=== PATIENT | male | born 1945 | race Caucasian/White ===

== ENCOUNTER → 2022-10-04 | Outpatient (CLI) | payer MEDICARE ==
[2022-10-04 18:31] LABS: African American GFR (CKD) 96.2 (60.0-200.0); Albumin 3.9 g/dL (3.8-4.9); Albumin/Globulin Ratio 1.66 (1.60-3.17); Anion Gap 13.7 mmol/L (10.00-18.00); BUN/Creat Ratio 29.05 Ratio (12.00-20.00); Blood Urea Nitrogen 26.2 mg/dL (9.0-27.0); Calcium 9.4 mg/dL (8.7-10.3); Carbon Dioxide 24.3 mmol/L (20.0-27.5); Globulin 2.4 g/dL (1.6-3.3); Potassium 4.5 mmol/L (3.5-5.5); Total Bilirubin 0.6 mg/dL (0.30-1.20); Total Protein 6.3 g/dL (6.2-8.2)
== END | disposition home or self-care (01) ==
LOC: LABWHC1 11:55
PROVIDERS: ATTEND Internal Medicine Endocrinology, Diabetes & Metabolism
DX: E11.65 Type 2 diabetes mellitus with hyperglycemia (principal)
CPT/HCPCS: 36415; 80053; 84443

== ENCOUNTER 2022-10-23 10:44 | Emergency (ER) | payer MEDICARE ==
[2022-10-23 10:53] VITALS: TEMP 98.7
[2022-10-23 10:59] LABS: Glucose,Whole Blood 168 mg/dL (70-110)
--- NOTE | 2022-10-23 11:42 | ED ---
General Adult HPI - General Chief complaint: Altered Mental Status Stated complaint: AMS Time Seen by Provider: 10/23/22 10:52 Source: patient, EMS Mode of arrival: EMS Limitations: altered mental status - History of Present Illness Initial comments: Dictation was produced using [employer] dictation software. please excuse any grammatical, word or spelling errors. Chief Complaint: 77-year-old male brought in by EMS for altered mental status and frequent falls History of Present Illness: Patient is 77-year-old male. Patient is a poor historian is brought in from home. The patient lives at home with his . According to EMS who does report patient has been having increased confusion and falls the last 2 weeks. Patient states that he has been falling. Patient does not report why he is falling. Denies any complaints at the bedside. Patient's alert and oriented 4. Coronary EMS patient had a fall about them today. The ROS documented in this emergency department record has been reviewed and confirmed by me. Those systems with pertinent positive or negative responses have been documented in the HPI. All other systems are other negative and/or noncontributory. PHYSICAL EXAM: General Impression: Alert and oriented x3, not in acute distress HEENT: Normocephalic atraumatic, extra-ocular movements intact, pupils equal and reactive to light bilaterally, mucous membranes moist. Cardiovascular: Heart regular rate and rhythm Chest: Able to complete full sentences, no retractions, no tachypnea Abdomen: abdomen soft, non-tender, non-distended, no organomegaly Musculoskeletal: Pulses present and equal in all extremities, no peripheral edema Motor: no focal deficits noted Neurological: CN II-XII grossly intact, no focal motor or sensory deficits noted Skin: Intact with no visualized rashes Psych: Normal affect and mood ED course: 77-year-old male presents emergency department for altered mental status and frequent falls. Vital signs upon arrival are within acceptable limits. Patient alert and oriented 4. No acute distress. Nursing notes and chart review was performed EKG interpreted by me: Ventricular rate 87, sinus rhythm, NM interval 157, QRS 86, QTC 412. No NM prolongation, no QTC prolongation, no ST or T-wave changes noted. Overall, this EKG is unremarkable Computed tomography scan of the head and C-spine is unremarkable. No acute intracranial processes. Chest x-ray and pelvis x-ray is nonacute. Patient monitored in the emergency department for 3 hours and 40 minutes. More history was obtained from was at bedside at 2:30 PM. Patient will like to be discharged. He has been having frequent falls with loss to 3 weeks. Family is agreeable for home health care assistance. Yolande manager of case is at the bedside helping to arrange for home health care as sistance. is concerned that patient's primary care physicians are well outside of town. They would like referrals to our local PCPs. Urinalysis unremarkable. Was pt. sent in by a medical professional or institution (, BILL, DELIVERY ROUTE DRIVER, urgent care, hospital, or care home...) When possible be specific @ -no Did you speak to anyone other than the patient for history (EMS, parent, family, police, friend...)? What history was obtained from this source @ -, EMS Did you review nursing and triage notes (agree or disagree)? Why? @ -I reviewed and agree with nursing and triage notes Were old charts reviewed (outside hosp., previous admission, EMS record, old EKG, old radiological studies, urgent care reports/EKG's, care home records)? Report findings @ -No old charts were reviewed Differential Diagnosis (chest pain, altered mental status, abdominal pain women, abdominal pain men, vaginal bleeding, weakness, fever, dyspnea, syncope, headache, dizziness, GI bleed, back pain, seizure, CVA, palpatations, mental health)? @ -not applicable EKG interpreted by me (3pts min.). @ -see above X-rays interpreted by me (1pt min.). @ -See above CT interpreted by me (1pt min.). @ -See above U/S interpreted by me (1pt. min.). @ -None done What testing was considered but not performed or refused? (CT, X-rays, U/S, labs)? Why? @ -None What meds were considered but not given or refused? Why? @ -None Did you discuss the management of the patient with other professionals (professionals i.e. BILL Dumas, DELIVERY ROUTE DRIVER, lab, RT, psych nurse, social media analyst, base loader, teacher, corporate security officer, manager of case)? Give summary @ -No Was smoking cessation discussed for >3mins.? @ -No Was critical care preformed (if so, how long)? @ -No Were there social determinants of health that impacted care today? How? (Homelessness, low income, unemployed, alcoholism, drug addiction, transportation, low edu. Level, literacy, decrease access to med. care, intermediate, rehab)? @ -No Was there de-escalation of care discussed even if they declined (Discuss DNR or withdrawal of care, Hospice)? DNR status @ -No What co-morbidities impacted this encounter? (DM, HTN, Smoking, COPD, CAD, Cancer, CVA, ARF, Chemo, Hep., AIDS, mental health diagnosis, sleep apnea, morbid obesity)? @ -None Was patient admitted / discharged? Hospital course, mention meds given and route , prescriptions, significant lab abnormalities, going to OR and other pertinent info. @ -See above Undiagnosed new problem with uncertain prognosis? @ -No Drug Therapy requiring intensive monitoring for toxicity (Heparin, Nitro, Insulin, Cardizem)? @ -No Were any procedures done? @ -No Diagnosis/symptom? @ -Frequent falls Acute, or Chronic, or Acute on Chronic? @ -Acute on chronic Uncomplicated (without systemic symptoms) or Complicated (systemic symptoms)? @ -uncomplicated Side effects of treatment? @ -No Exacerbation, Progression, or Severe Exacerbation? @ -No Poses a threat to life or bodily function? How? (Chest pain, USA, MD, pneumonia, PE, COPD, DKA, ARF, appy, cholecystitis, CVA, Diverticulitis, Homicidal, Suicidal, threat to staff... and all critical care pts) @ -Yes - Related Data Allergies Allergy/AdvReac Type Severity Reaction Status Date / Time morphine AdvReac Swelling Verified 10/23/22 10:53 Sulfa (Sulfonamide AdvReac Swelling Verified 10/23/22 10:53 Antibiotics) Review of Systems ROS Statement: Those systems with pertinent positive or pertinent negative responses have been documented in the HPI. ROS Other: All systems not noted in ROS Statement are negative. Past Medical History Additional Past Medical History / Comment(s): unable to obtain r/t AMS History of Any Multi-Drug Resistant Organisms: None Reported Additional Past Surgical History / Comment(s): UTO r/t AMS Past Psychological History: No Psychological Hx Reported Smoking Status: Never smoker Past Alcohol Use History: None Reported Past Drug Use History: None Reported General Exam Limitations: altered mental status Course Vital Signs 10/23/22 10/23/22 10/23/22 10:50 12:00 13:00 Temperature 98.7 F Pulse Rate 88 82 77 Respiratory 20 16 18 Rate Blood Pressure 171/92 157/96 148/92 O2 Sat by Pulse 96 96 95 Oximetry Medical Decision Making - Lab Data Result diagrams: 10/23/22 12:12 10/23/22 12:12 Lab Results 10/23/22 10/23/22 10/23/22 Range/Units 10:58 12:12 12:12 WBC 6.5 (3.8-10.6) k/uL RBC 5.95 H (4.30-5.90) m/uL Hgb 18.2 H (13.0-17.5) gm/dL Hct 52.9 (39.0-53.0) % MCV 88.9 (80.0-100.0) fL MCH 30.6 (25.0-35.0) pg MCHC 34.4 (31.0-37.0) g/dL RDW 13.0 (11.5-15.5) % Plt Count 151 (150-450) k/uL MPV 8.4 Neutrophils % 66 % Lymphocytes % 22 % Monocytes % 6 % Eosinophils % 3 % Basophils % 1 % Neutrophils # 4.3 (1.3-7.7) k/uL Lymphocytes # 1.4 (1.0-4.8) k/uL Monocytes # 0.4 (0-1.0) k/uL Eosinophils # 0.2 (0-0.7) k/uL Basophils # 0.1 (0-0.2) k/uL Sodium 138 (137-145) mmol/L Potassium 4.5 (3.5-5.1) mmol/L Chloride 107 (98-107) mmol/L Carbon Dioxide 24 (22-30) mmol/L Anion Gap 7 mmol/L BUN 27 H (9-20) mg/dL Creatinine 0.77 (0.66-1.25) mg/dL Est GFR (CKD-EPI)AfAm >90 (>60 ml/min/1.73 sqM) Est GFR (CKD-EPI)NonAf 89 (>60 ml/min/1.73 sqM) Glucose 135 H (74-99) mg/dL POC Glucose (mg/dL) 168 H (70-110) mg/dL POC Glu Machine Maintenance Repairer ID Nicole Bernard Calcium 8.7 (8.4-10.2) mg/dL Magnesium 2.3 (1.6-2.3) mg/dL Total Bilirubin 1.0 (0.2-1.3) mg/dL AST 37 (17-59) U/L ALT 29 (4-49) U/L Alkaline Phosphatase 105 (38-126) U/L Creatine Kinase 161 (55-170) U/L Total Protein 6.4 (6.3-8.2) g/dL Albumin 3.9 (3.5-5.0) g/dL Urine Color Urine Appearance (Clear) Urine pH (5.0-8.0) Ur Specific Molino (1.001-1.035) Urine Protein (Negative) Urine Glucose (UA) (Negative) Urine Ketones (Negative) Urine Blood (Negative) Urine Nitrite (Negative) Urine Bilirubin (Negative) Urine Urobilinogen (<2.0) mg/dL Ur Leukocyte Esterase (Negative) Urine WBC (0-5) /hpf Urine Mucus (None) /hpf 10/23/22 Range/Units 14:48 WBC (3.8-10.6) k/uL RBC (4.30-5.90) m/uL Hgb (13.0-17.5) gm/dL Hct (39.0-53.0) % MCV (80.0-100.0) fL MCH (25.0-35.0) pg MCHC (31.0-37.0) g/dL RDW (11.5-15.5) % Plt Count (150-450) k/uL MPV Neutrophils % % Lymphocytes % % Monocytes % % Eosinophils % % Basophils % % Neutrophils # (1.3-7.7) k/uL Lymphocytes # (1.0-4.8) k/uL Monocytes # (0-1.0) k/uL Eosinophils # (0-0.7) k/uL Basophils # (0-0.2) k/uL Sodium (137-145) mmol/L Potassium (3.5-5.1) mmol/L Chloride (98-107) mmol/L Carbon Dioxide (22-30) mmol/L Anion Gap mmol/L BUN (9-20) mg/dL Creatinine (0.66-1.25) mg/dL Est GFR (CKD-EPI)AfAm (>60 ml/min/1.73 sqM) Est GFR (CKD-EPI)NonAf (>60 ml/min/1.73 sqM) Glucose (74-99) mg/dL POC Glucose (mg/dL) (70-110) mg/dL POC Glu Machine Maintenance Repairer ID Calcium (8.4-10.2) mg/dL Magnesium (1.6-2.3) mg/dL Total Bilirubin (0.2-1.3) mg/dL AST (17-59) U/L ALT (4-49) U/L Alkaline Phosphatase (38-126) U/L Creatine Kinase (55-170) U/L Total Protein (6.3-8.2) g/dL Albumin (3.5-5.0) g/dL Urine Color Light Yellow Urine Appearance Clear (Clear) Urine pH 6.0 (5.0-8.0) Ur Specific Molino 1.022 (1.001-1.035) Urine Protein 1+ H (Negative) Urine Glucose (UA) 4+ H (Negative) Urine Ketones Trace H (Negative) Urine Blood Negative (Negative) Urine Nitrite Negative (Negative) Urine Bilirubin Negative (Negative) Urine Urobilinogen <2.0 (<2.0) mg/dL Ur Leukocyte Esterase Negative (Negative) Urine WBC 1 (0-5) /hpf Urine Mucus Rare H (None) /hpf Disposition Clinical Impression: Frequent falls Disposition: HOME SELF-CARE Condition: Good Instructions (If sedation given, give patient instructions): Fall Prevention for Older Adults (ED) Additional Instructions: Patient's primary care doctor is Dr Nataly Stuart and he can be reached at [phone]. Appointment made for 10/25/2022 at 2:45pm. Is patient prescribed a controlled substance at d/c from ED?: No Referrals: [facility], [NON-STAFF] - 1-2 days (Home Care will contact you regarding set up time for appointments. ) Time of Disposition: 15:03
[2022-10-23 12:24] LABS: Basophils # (A) 0.1 k/uL (0-0.2); Basophils % (A) 1 %; Eosinophils # (A) 0.2 k/uL (0-0.7); Eosinophils % (A) 3 %; HCT 52.9 % (39.0-53.0); HGB 18.2 gm/dL (13.0-17.5); Lymphocytes # (A) 1.4 k/uL (1.0-4.8); Lymphocytes % (A) 22 %; MCH 30.6 pg (25.0-35.0); MCHC 34.4 g/dL (31.0-37.0); MCV 88.9 fL (80.0-100.0); Mean Platelet Volume 8.4; Monocytes # (A) 0.4 k/uL (0-1.0); Monocytes % (A) 6 %; Neutrophils # (A) 4.3 k/uL (1.3-7.7); Neutrophils % (A) 66 %; Platelet Count 151 k/uL (150-450); RBC 5.95 m/uL (4.30-5.90); WBC 6.5 k/uL (3.8-10.6)
[2022-10-23 12:32] LABS: ALT 29 U/L (4-49); AST 37 U/L (17-59); African American GFR (CKD) >90 (>60 ml/min/1.73 sqM); Albumin 3.9 g/dL (3.5-5.0); Alkaline Phosphatase 105 U/L (38-126); Anion Gap 7 mmol/L; Blood Urea Nitrogen 27 mg/dL (9-20); Calcium 8.7 mg/dL (8.4-10.2); Carbon Dioxide 24 mmol/L (22-30); Chloride 107 mmol/L (98-107); Creatine Kinase 161 U/L (55-170); Glucose 135 mg/dL (74-99); Magnesium 2.3 mg/dL (1.6-2.3); Non-African American GFR(CKD) 89 (>60 ml/min/1.73 sqM); Sodium 138 mmol/L (137-145); Total Protein 6.4 g/dL (6.3-8.2)
[2022-10-23 12:36] LABS: Potassium 4.5 mmol/L (3.5-5.1)
--- NOTE | 2022-10-23 12:50 | XR ---
EXAMINATION TYPE: XR chest 2V DATE OF EXAM: 10/23/2022 COMPARISON: NONE HISTORY: Fall injury with pain TECHNIQUE: Frontal and lateral views of the chest are obtained. FINDINGS: The osseous structures are demineralized. Degenerative change bilateral glenohumeral joint s is seen. There is cardiomegaly with overlying loop recorder. There are low lung volumes with increa sed interstitial markings bilaterally. No suspicious focal consolidation, pleural effusion, or pneumo thorax seen bilaterally. IMPRESSION: Low lung volumes and cardiomegaly with increased interstitial markings suspected edema. Correlate for CHF exacerbation.
--- NOTE | 2022-10-23 12:52 | CT ---
EXAMINATION TYPE: CT brain cspine wo con CT DLP: 1869.9 mGycm, Automated exposure control for dose reduction was used. DATE OF EXAM: 10/23/2022 12:42 PM COMPARISON: None. CLINICAL INDICATION:Male, 77 years old with history of frequent falls; Fall TECHNIQUE: Brain: Multiple axial CT images of the brain were obtained without IV contrast. Cspine: Axial CT images from the skull base to the inferior aspect of T2 we obtained without intraven ous contrast. Coronal and sagittal reformatted images were also reviewed. FINDINGS: Brain: Extra-axial spaces: No abnormal extra-axial fluid collections. Ventricular system: Dilatation in proportion to cerebral atrophy. Cerebral parenchyma: Cerebral atrophy. No acute intraparenchymal hemorrhage or mass effect. The martin -white junction is well differentiated. Scattered hypoattenuating areas are seen within the white mat ter. Cerebellum: Unremarkable. Mass effect: No evidence of midline shift. Intracranial vasculature: Atherosclerotic calcifications of the intracranial vessels. Soft tissues: Normal. Calvarium/osseous structures: No depressed skull fracture. Paranasal sinuses and mastoid air cells: Clear. Visualized orbits: Orbital contents are intact. Cervical spine: Fracture: None. Osseous structures: Multilevel degenerative disc disease changes with endplate spurring and disc oste ophyte complex's. Vertebral alignment: Within normal limits. Spinal canal/Neural Foramina: No evidence of significant spinal canal narrowing. No evidence for sign ificant neural foraminal stenosis. Neck soft tissues: Prevertebral soft tissues are within normal limits. Other: The airway is patent. The lung apices are clear. IMPRESSION: 1. No acute intracranial process. 2. Nonspecific white matter changes, likely secondary to chronic small vessel ischemic disease. 3. No evidence of cervical spine fracture. 4. Mild multilevel degenerative disc disease.
--- NOTE | 2022-10-23 12:53 | XR ---
EXAMINATION TYPE: XR pelvis AP view DATE OF EXAM: 10/23/2022 CLINICAL HISTORY: Falling injury with pain TECHNIQUE: A single AP view of the pelvis is obtained. COMPARISON: None. FINDINGS: There is no acute displaced fracture evident in the pelvis. The sacroiliac joints show lef t-sided asymmetric narrowing and sclerosis. Hip joint spaces are maintained. Scatter overlying pelvic phleboliths are seen. Vascular calcification bilateral groin region noted. There are suspected trans itional type vertebra lumbosacral junction that is sacralized on the left. There is moderate to sever e disc space narrowing and spurring at L4-L5 level noted. IMPRESSION: There is no acute displaced fracture in the pelvis.
[2022-10-23 14:54] LABS: Appearance,Urine Clear (Clear); Bilirubin,Urine Negative (Negative); Blood,Urine Negative (Negative); Color,Urine Light Yellow; Glucose,Urine (UA) 4+ (Negative); Ketones,Urine Trace (Negative); Leukocyte Esterase,Urine Negative (Negative); Mucus,Urine Rare /hpf; Nitrite,Urine Negative (Negative); Protein,Urine 1+ (Negative); Specific Gravity,Urine 1.022 (1.001-1.035); Urobilinogen,Urine <2.0 mg/dL (<2.0); WBC,Urine 1 /hpf (0-5)
[2022-10-23 16:07] VITALS: BP 156/89; PULSE 78; RESP 22
== END 2022-10-23 16:07 | disposition home or self-care (01) ==
LOC: EC 10:44
DX: R29.6 Repeated falls (principal); I51.7 Cardiomegaly; Z88.2 Allergy status to sulfonamides; Z88.5 Allergy status to narcotic agent
CPT/HCPCS: 36415; 70450; 71046; 72125; 72170; 80053; 81001; 82550; 83735; 85025; 93005; 99285

== ENCOUNTER 2023-01-31 18:55 | Emergency (ER) | payer MEDICARE ==
[2023-01-31 19:14] VITALS: RESP 18; TEMP 97.8
[2023-01-31] MEDS ORDERED: DIPH,PERTUS(ACELL)TETVAC-LF 0.5 ML VIAL IM ONE (19:46)
--- NOTE | 2023-01-31 20:05 | CT ---
EXAMINATION TYPE: CT brain cspine wo con CT DLP: 1702.9 mGycm, Automated exposure control for dose reduction was used. DATE OF EXAM: 01/31/2023 7:33 PM COMPARISON: None. CLINICAL INDICATION:Male, 78 years old with history of fall injury; fall, laceration/contusion over r ight eye TECHNIQUE: Brain: Multiple axial CT images of the brain were obtained without IV contrast. Cspine: Axial CT images from the skull base to the inferior aspect of T2 we obtained without intraven ous contrast. Coronal and sagittal reformatted images were also reviewed. FINDINGS: Brain: Extra-axial spaces: No abnormal extra-axial fluid collections. Ventricular system: Dilatation in proportion to cerebral atrophy. Cerebral parenchyma: Cerebral atrophy. No acute intraparenchymal hemorrhage or mass effect. The martin -white junction is well differentiated. Scattered hypoattenuating areas are seen within the white mat ter. Cerebellum: Unremarkable. Mass effect: No evidence of midline shift. Intracranial vasculature: Atherosclerotic calcifications of the intracranial vessels. Soft tissues: Right periorbital contusion/laceration. Calvarium/osseous structures: No depressed skull fracture. Paranasal sinuses and mastoid air cells: Clear. Visualized orbits: Orbital contents are intact. Cervical spine: Fracture: None. Osseous structures: Multilevel degenerative disc disease changes with endplate spurring and disc oste ophyte complex's. Vertebral alignment: Within normal limits. Spinal canal/Neural Foramina: Disc osteophyte complexes at C4-C5 through C6-C7. With at least mild sp inal canal stenosis. No evidence for significant neural foraminal stenosis. Neck soft tissues: Prevertebral soft tissues are within normal limits. The Other: The airway is patent. The lung apices are clear. IMPRESSION: 1. No acute intracranial process. 2. Right periorbital contusion/laceration. No evidence of fracture. 3. No evidence of cervical spine fracture. 4. Mild multilevel degenerative disc disease.
[2023-01-31] MEDS ORDERED: BACITRACIN OINT 1 EACH PACKET TOPICAL ONE (20:32)
--- NOTE | 2023-01-31 20:32 | ED ---
Fall HPI - General Chief Complaint: Fall Stated Complaint: Fall/head injury/blood thinners Time Seen by Provider: 01/31/23 19:14 Source: patient, EMS Mode of arrival: EMS - History of Present Illness Initial Comments: This patient is a 78-year-old man who presents to have evaluation for ground level fall. The patient had gone to take her garbage out states that he tripped and fell forward landing on the right brow. No loss consciousness. Denies other injuries. Patient unsure when his last tetanus shot given. MD Complaint: fall -: minutes(s) Fall From: standing When Fall Occurred: just prior to arrival Fall Witnessed: no Place Fall Occurred: home Loss of Consciousness: none Prolonged Down Time?: no Symptoms Prior to Fall: none Location: head Severity: mild Context: tripped/slipped Associated Symptoms: headache - Related Data Allergies Allergy/AdvReac Type Severity Reaction Status Date / Time morphine AdvReac Swelling Verified 10/23/22 10:53 Sulfa (Sulfonamide AdvReac Swelling Verified 10/23/22 10:53 Antibiotics) Review of Systems ROS Statement: Those systems with pertinent positive or pertinent negative responses have been documented in the HPI. ROS Other: All systems not noted in ROS Statement are negative. Constitutional: Denies: fever, weakness Eyes: Denies: eye pain, vision change ENT: Denies: epistaxis Respiratory: Denies: cough, dyspnea Cardiovascular: Denies: chest pain, syncope Gastrointestinal: Denies: abdominal pain, vomiting, diarrhea Genitourinary: Denies: dysuria, hematuria Musculoskeletal: Denies: back pain Skin: Denies: rash Neurological: Denies: headache, weakness, numbness, confusion Past Medical History Past Medical History: Hypertension Additional Past Medical History / Comment(s): unable to obtain r/t AMS History of Any Multi-Drug Resistant Organisms: None Reported Additional Past Surgical History / Comment(s): UTO r/t AMS Past Psychological History: No Psychological Hx Reported Smoking Status: Never smoker Past Alcohol Use History: None Reported Past Drug Use History: None Reported General Exam Limitations: no limitations General appearance: alert, in no apparent distress Head exam: Present: atraumatic, normocephalic Eye exam: Present: PERRL, EOMI, periorbital swelling, other (There is abrasion and swelling to the right brow.). Absent: scleral icterus, conjunctival injection, periorbital tenderness ENT exam: Present: normal oropharynx Neck exam: Present: full ROM. Absent: tenderness Respiratory exam: Present: normal lung sounds bilaterally. Absent: respiratory distress, wheezes, rales, rhonchi, stridor, chest wall tenderness Cardiovascular Exam: Present: regular rate, normal rhythm, normal heart sounds. Absent: systolic murmur, diastolic murmur, rubs, gallop GI/Abdominal exam: Present: soft. Absent: distended, tenderness, guarding, rebound, rigid, mass Extremities exam: Present: normal inspection, normal capillary refill. Absent: pedal edema, calf tenderness Back exam: Present: normal inspection. Absent: CVA tenderness (R), CVA tenderness (L), vertebral tenderness Neurological exam: Present: alert, oriented X3, CN II-XII intact Skin exam: Present: warm, dry, normal color, abrasion (Right brow). Absent: rash Course Vital Signs 01/31/23 01/31/23 19:11 20:41 Temperature 97.8 F Pulse Rate 87 62 Respiratory 18 18 Rate Blood Pressure 138/116 147/114 O2 Sat by Pulse 96 94 L Oximetry Medical Decision Making - Medical Decision Making This patient is 78-year-old man here to have evaluation after ground level fall striking his right brow. The patient did have CT of the brain which I interpreted as being negative for bony trauma or acute intracranial hemorrhage. The patient is given tetanus booster. We discussed appropriate further care and follow-up as well as return parameters. Was pt. sent in by a medical professional or institution (, PA, OFFAL TRIMMER, urgent care, hospital, or care home...) When possible be specific @ -[No] Did you speak to anyone other than the patient for history (EMS, parent, family, police, friend...)? What history was obtained from this source @ -[No] Did you review nursing and triage notes (agree or disagree)? Why? @ -[I reviewed and agree with nursing and triage notes] Were old charts reviewed (outside hosp., previous admission, EMS record, old EKG, old radiological studies, urgent care reports/EKG's, care home records)? Report findings @ -[No old charts were reviewed] Differential Diagnosis (chest pain, altered mental status, abdominal pain women, abdominal pain men, vaginal bleeding, weakness, fever, dyspnea, syncope, headache, dizziness, GI bleed, back pain, seizure, CVA, palpatations, mental health, musculoskeletal)? @ -[Differential diagnosis for this patient's acute head injury includes contusion, abrasion, laceration, intracranial hemorrhage, skull fracture, c ervical spine injury, amongst other conditions EKG interpreted by me (3pts min.). @ -[ X-rays interpreted by me (1pt min.). @ -[None done] CT interpreted by me (1pt min.). @ -[As above U/S interpreted by me (1pt. min.). @ -[None done] What testing was considered but not performed or refused? (CT, X-rays, U/S, labs)? Why? @ -[None] What meds were considered but not given or refused? Why? @ -[None] Did you discuss the management of the patient with other professionals (professionals i.e. , PA, OFFAL TRIMMER, lab, RT, psych nurse, social science professor, grooving machine operator, teacher, guest services officer, immigration case worker)? Give summary @ -[No] Was smoking cessation discussed for >3mins.? @ -[No] Was critical care preformed (if so, how long)? @ -[No] Were there social determinants of health that impacted care today? How? (Homelessness, low income, unemployed, alcoholism, drug addiction, transportation, low edu. Level, literacy, decrease access to med. care, fpc, rehab)? @ -[No] Was there de-escalation of care discussed even if they declined (Discuss DNR or withdrawal of care, Hospice)? DNR status @ -[No] What co-morbidities impacted this encounter? (DM, HTN, Smoking, COPD, CAD, Cancer, CVA, ARF, Chemo, Hep., AIDS, mental health diagnosis, sleep apnea, morbid obesity)? @ -[None] Was patient admitted / discharged? Hospital course, mention meds given and route, prescriptions, significant lab abnormalities, going to OR and other pertinent info. @ -[Discharged Undiagnosed new problem with uncertain prognosis? @ -[No] Drug Therapy requiring intensive monitoring for toxicity (Heparin, Nitro, Insulin, Cardizem)? @ -[No] Were any procedures done? @ -[No] Diagnosis/symptom? @ -[Acute closed head injury Acute forehead abrasion or Chronic, or Acute on Chronic? @ -[default] Uncomplicated (without systemic symptoms) or Complicated (systemic symptoms)? @ -[uncomplicated Side effects of treatment? @ -[No] Exacerbation, Progression, or Severe Exacerbation? @ -[No] Poses a threat to life or bodily function? How? (Chest pain, USA, [place], pneumonia, PE, COPD, DKA, ARF, appy, cholecystitis, CVA, Diverticulitis, Homicidal, Suicidal, threat to staff... and all critical care pts) @ -[No] Disposition Clinical Impression: Fall, Head injury Disposition: HOME SELF-CARE Condition: Good Instructions (If sedation given, give patient instructions): Fall Prevention for Older Adults (ED), Head Injury (ED) Is patient prescribed a controlled substance at d/c from ED?: No Referrals: Hung Garnett DO [Primary Care Provider] - 1-2 days
[2023-01-31 20:42] VITALS: BP 147/114; PULSE 62
== END 2023-01-31 21:16 | disposition home or self-care (01) ==
LOC: EC 18:55
DX: S09.93XA Unspecified injury of face, initial encounter (principal); I10 Essential (primary) hypertension; Z88.2 Allergy status to sulfonamides; Z88.5 Allergy status to narcotic agent; Z23 Encounter for immunization; W01.0XXA Fall on same level from slipping, tripping and stumbling without subsequent striking against object, initial encounter; Y92.009 Unspecified place in unspecified non-institutional (private) residence as the place of occurrence of the external cause
CPT/HCPCS: 70450; 72125; 90471; 90715; 99284

== ENCOUNTER → 2023-03-09 | Outpatient (CLI) | payer MEDICARE ==
--- NOTE | 2023-03-09 13:06 | MR ---
EXAMINATION TYPE: MR brain wo con DATE OF EXAM: 03/09/2023 COMPARISON: CT brain January 31, 2023 and older study October 23, 2022 HISTORY: Right leg weakness, falls. TECHNIQUE: Multiplanar, multisequence imaging of the brain and brainstem is performed without IV cont rast. FINDINGS: Diffusion weighted images demonstrate no evidence of a recent infarct or other diffusion abnormality. There is mild to moderate ventricular and sulcal prominence. There are scattered foci of T2 hyperinte nsity seen throughout the white matter bilaterally. Approximately 80 scattered lesions are seen. Lesi ons are nonspecific in appearance and distribution. Midline structures demonstrate normal morphology. The craniocervical junction appears within normal limits. Normal vascular flow voids are present. The visualized sinuses are clear and the globes are i ntact. IMPRESSION: There is [id number] diffuse cerebral atrophy and advanced nonspecific white matter changes. Findings favor a product of chronic small vessel ischemic change in patient of this age. Oth er etiologies not excluded.
== END | disposition home or self-care (01) ==
LOC: RADMRIMAIN 11:36
PROVIDERS: ATTEND Psychiatry & Neurology Neurology
DX: G31.9 Degenerative disease of nervous system, unspecified (principal); I67.9 Cerebrovascular disease, unspecified; R90.82 White matter disease, unspecified
CPT/HCPCS: 70551

== ENCOUNTER 2023-07-04 07:28 | Day surgery (SDC) | payer MEDICARE ==
--- NOTE | 2023-07-02 14:50 | P.HPOR ---
History of Present Illness H&P Date: 07/02/23 Subjective: This is a 78 year old male that presents today for follow up evaluation regarding a several year history of progressively worsening bilateral hand numbness and tingling with associated weakness. 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 He states the left hand is more symptomatic. He denies any injury or inciting event. He notes symptoms that are worse at nighttime and often wake him from sleep at night. He has tried night bracing for the last 6 weeks but still notes constant numbness and tingling although he has mild improvement with bracing and is able to make a fist. Physical Examination: LUE: AIN/PIN/Radial/Ulnar/Median motor intact. Radial/Ulnar SILT. 2+/4 Radial/Ulnar pulses palpated. 5/5 APB, 5/5 FDI. Negative Finkelsteins, negative CMC grind, negative Durkan's compression. Constant numbness in the median nerve distribution. RUE: AIN/PIN/Radial/Ulnar/Median motor intact. Radial/Ulnar SILT. 2+/4 Radial/Ulnar pulses palpated. 5/5 APB, 5/5 FDI. Negative Finkelsteins, negative CMC grind, negative Durkan's compression. Constant numbness in the median nerve distribution. 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 Bilateral ulnar neuropathies, moderate severity on the right and mild to moderate on the left, localizing to the elbows. Impression: 1.)B/L Carpal tunnel syndrome 2.) B/L Cubital tunnel syndrome Plan: Diagnosis and treatment options were discussed with the patient. We discussed findings of severe nerve compression in the wrist on both extremities. We discussed due to his multiple medical comorbidities an open carpal tunnel release under local anesthetic could be considered if his A1C is in acceptable range. He was able to show me his CGM data and his 90 day BG average is 158 which is acceptable. Pending PCP clearance he is schedule for a left open carpal tunnel release under straight local anesthetic.Risks and benefits of surgery including bleeding, infection, damage to surrounding tissue, need for further surgery, residual numbness due to severe EMG nerve findings were discussed and the patient wished to go forward with surgery.The patient was agreeable with this plan. He is scheduled for a left open carpal tunnel release under local anesthetic. CC: Dalton Strauss DO Orthopedic Hand/Upper Extremity Surgeon Past Medical History Past Medical History: Diabetes Mellitus, GERD/Reflux, Hyperlipidemia, Hypertension Additional Past Medical History / Comment(s): IDDM. EARLY ONSET DEMENTIA. History of Any Multi-Drug Resistant Organisms: None Reported Past Surgical History: Heart Catheterization With Stent, Orthopedic Surgery Additional Past Surgical History / Comment(s): UTO r/t AMS. KNEE REPLACEMENT ? Past Anesthesia/Blood Transfusion Reactions: No Reported Reaction Date of Last Stent Placement:: UNKNOWN Past Psychological History: No Psychological Hx Reported Smoking Status: Former smoker, Never smoker Past Alcohol Use History: None Reported Additional Past Alcohol Use History / Comment(s): QUIT SMOKING IN THE . Past Drug Use History: None Reported - Past Family History Mother Family Medical History: Unable to Obtain Medications and Allergies Home Medications Medication Instructions Recorded Confirmed Type Aspirin [Adult Low Dose Aspirin EC] 81 mg PO DAILY 06/29/23 06/29/23 History Atorvastatin Calcium [Lipitor] 40 mg PO HS 06/29/23 06/29/23 History Cholecalciferol [Vitamin D3 (25 50 mcg PO DAILY 06/29/23 06/29/23 History Mcg = 1000 Iu)] Donepezil [Aricept] 10 mg PO QAM 06/29/23 06/29/23 History Dutasteride/Tamsulosin HCl [Yani 1 tab PO HS 06/29/23 06/29/23 History 0.5-0.4 mg Capsule] Empagliflozin [Jardiance] 25 mg PO QAM 06/29/23 06/29/23 History Ginkgo Biloba [place] Extract [Ginkgo 60 mg PO BID 06/29/23 06/29/23 History Biloba] INSULIN ASPART (NovoLOG) [NovoLOG 3 - 15 units SQ AC-TID 06/29/23 06/29/23 History (formulary)] Insulin Glargine,Hum.rec.anlog 40 - 50 unit SQ HS 06/29/23 06/29/23 History [Lantus Solostar Pen] Loratadine [Claritin] 10 mg PO DAILY PRN 06/29/23 06/29/23 History Metoprolol Succinate (ER) [Toprol 25 mg PO HS 06/29/23 06/29/23 History XL] Pantoprazole [Protonix] 40 mg PO DAILY PRN 06/29/23 06/29/23 History Pantoprazole [Protonix] 40 mg PO HS PRN 06/29/23 06/29/23 History Vit C/E/Zn/Coppr/Lutein/Zeaxan 2 tab PO DAILY 06/29/23 06/29/23 History [Preservision Areds 2 Softgel] Warfarin [Coumadin] 5 mg PO HS 06/29/23 06/29/23 History ramipriL 10 mg PO BID 06/29/23 06/29/23 History Allergies Allergy/AdvReac Type Severity Reaction Status Date / Time morphine AdvReac Swelling Verified 06/29/23 15:41 Sulfa (Sulfonamide AdvReac Swelling Verified 06/29/23 15:41 Antibiotics) Physical Examination Osteopathic Statement: *. No significant issues noted on an osteopathic structural exam other than those noted in the History and Physical/Consult.
[~2023-07-04 07:28] MED LIST: LACTATED RINGERS 1,000 ML IV SCH; LIDOCAINE 1% (10MG/ML) FOR IV START INTRADERMA PRN; Pre Op ABX Message 1 EACH MISC MISCELLANE ONE; fentaNYL (PF) 50 MCG/ML 2 ML AMP IV PRN
[2023-07-04 08:29] VITALS: RESP 16; TEMP 98.1
[2023-07-04 08:30] LABS: Glucose,Whole Blood 117 mg/dL (70-110)
[2023-07-04] MEDS ORDERED: BUPIVACAINE (PF) 0.5% 30 ML VIAL SQ ONE ×3 (08:56→09:00)
[2023-07-04] MEDS ORDERED: LIDOCAINE 2% INJ 20 MG/ML SQ ONE ×3 (08:56→09:00)
[2023-07-04] MEDS ORDERED: MIDAZOLAM 2 MG/2 ML VIAL ONE (08:57)
[2023-07-04] MEDS ORDERED: PROPOFOL 10 MG/ML 20 ML VIAL IV ONE (08:57)
[2023-07-04] MEDS ORDERED: fentaNYL (PF) 50 MCG/ML 2 ML AMP ONE (08:57)
--- NOTE | 2023-07-04 09:19 | P.OP ---
Date of Procedure: 07/04/23 Preoperative Diagnosis: Left carpal tunnel syndrome Postoperative Diagnosis: Left carpal tunnel syndrome Procedure(s) Performed: Left open carpal tunnel release Anesthesia: MAC Surgeon: Jaquan Fleming Celebrity Manager #1: Zheng Santacruz Estimated Blood Loss (ml): 0 Pathology: none sent Condition: stable Disposition: PACU Description of Procedure: This is a 78 year old male who presents today for a left open carpal tunnel release after having failed conservative treatment in the past. Risks and benefits of surgery were discussed with the patient including bleeding, damage to surrounding tissue, infection, need for further surgery as well as risks of anesthesia including pulmonary embolism and even and the patient wished to proceed with surgical intervention. The patients was seen in the pre-operative area by myself. Consent and H&P were completed and updated. The correct extremity was marked in the pre-operative area by myself and all other questions were answered. Operative Narrative: The patient was brought to the operating room by the department of anesthesia. They remained on the portable stretcher and a rolling hand table was brought to the side of the operative extremity. Pre-operative time out was performed indicating the correct patient, procedure and laterality. All in the room agreed. The patient was then drifted off to sleep by the department of anesthesia. MAC anesthesia was utilized and a 50:50 mixture of 1% Lidocaine and 0.5% bupivacaine was injected into the subcutaneous tissues of the palmar skin, 14 ccs total. A nonsterile tourniquet was then applied to the operative extremity and the left upper extremity was then prepped and draped in normal sterile fashion. The operative extremity was the exsanguinated with an esmarch bandage and the tourniquet was inflated to 250mmHg. 15 blade scalpel was utilized to make a longitudinal incision on the palmar skin in line with the radial boarder of the ring finger to a point distally at the intersection of Kaplans cardinal line. Heiss retractor was utilized to spread subcutaneous tissue and scalpel was used to cut through the superficial palmar fascia to reveal the transverse carpal ligament. The transverse carpal ligament was then sharply incised in line with the incision and tenotomy scissors were used to spread distally and the distal portion of the transverse carpal ligament was released using tenotomy scissors from distal to proximal under direct visualization. The median nerve was directly visualized and was intact. Proximal fascia of the distal forearm was also released under direct visualization taking care to preserve the palmar cutaneous branch of the median nerve. The wound was then closed with 4-0 nylon suture in a horizontal mattress fashion. Sterile dressing was applied consisting of adaptic, 4x4s, webril, and an yaneth bandage. Tourniquet was let down and the hand immediately was well perfused. The patient was then woken by the department of anesthesia and transferred to PACU in stable condition. Zheng KHAN was present to assist in major portions of the procedure. Jaquan Fleming D.O. Orthopedic Hand/Upper Extremity Surgeon
[2023-07-04 09:45] VITALS: BP 121/72; PULSE 73
== END 2023-07-04 10:00 | disposition home or self-care (01) ==
LOC: OR 07:28
PROVIDERS: ATTEND Orthopaedic Surgery Hand Surgery
DX: G56.02 Carpal tunnel syndrome, left upper limb (principal); I10 Essential (primary) hypertension; E78.5 Hyperlipidemia, unspecified; K21.9 Gastro-esophageal reflux disease without esophagitis; E11.9 Type 2 diabetes mellitus without complications; Z79.4 Long term (current) use of insulin; Z98.890 Other specified postprocedural states; Z87.891 Personal history of nicotine dependence; Z79.82 Long term (current) use of aspirin; Z79.84 Long term (current) use of oral hypoglycemic drugs; Z88.5 Allergy status to narcotic agent; Z88.2 Allergy status to sulfonamides
CPT/HCPCS: 64721; J2001; J2250; J3010; J2704; J0665

== ENCOUNTER 2023-08-15 05:38 | Day surgery (SDC) | payer MEDICARE ==
--- NOTE | 2023-08-14 08:59 | P.HPOR ---
History of Present Illness H&P Date: 08/14/23 Subjective: This is a 78 year old male that presents today for follow up evaluation regarding a several year history of progressively worsening bilateral hand numbness and tingling with associated weakness. He underwent a right open carpal tunnel with good results within the last month. He denies any injury or inciting event. He notes symptoms that are worse at nighttime and often wake him from sleep at night. He has tried night bracing for the last 6 weeks but still notes constant numbness and tingling although he has mild improvement with bracing and is able to make a fist. Physical Examination: RUE: AIN/PIN/Radial/Ulnar/Median motor intact. Radial/Ulnar SILT. 2+/4 Radial/Ulnar pulses palpated. 5/5 APB, 5/5 FDI. Negative Finkelsteins, negative CMC grind, negative Durkan's compression. Constant numbness in the median nerve distribution. 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 Bilateral ulnar neuropathies, moderate severity on the right and mild to moderate on the left, localizing to the elbows. Impression: 1.)Right Carpal tunnel syndrome 2.) B/L Cubital tunnel syndrome Plan: Diagnosis and treatment options were discussed with the patient. He is healed from his left open carpal tunnel procedure and wishes to go forward with a right open carpal tunnel release. He is schedule for a right open carpal tunnel release.Risks and benefits of surgery including bleeding, infection, damage to surrounding tissue, need for further surgery, residual numbness due to severe EMG nerve findings were discussed and the patient wished to go forward with surgery.The patient was agreeable with this plan. CC: Dalton Strauss DO Orthopedic Hand/Upper Extremity Surgeon Past Medical History Past Medical History: Diabetes Mellitus, GERD/Reflux, Hyperlipidemia, Hypertension Additional Past Medical History / Comment(s): IDDM. EARLY ONSET DEMENTIA. History of Any Multi-Drug Resistant Organisms: None Reported Past Surgical History: Heart Catheterization With Stent, Orthopedic Surgery Additional Past Surgical History / Comment(s): UTO r/t AMS. KNEE REPLACEMENT ? carpal tunnel 06/2023 Past Anesthesia/Blood Transfusion Reactions: No Reported Reaction Date of Last Stent Placement:: UNKNOWN Smoking Status: Former smoker - Past Family History Mother Family Medical History: Unable to Obtain Medications and Allergies Home Medications Medication Instructions Recorded Confirmed Type Aspirin [Adult Low Dose Aspirin EC] 81 mg PO DAILY 06/29/23 08/13/23 History Atorvastatin Calcium [Lipitor] 40 mg PO HS 06/29/23 08/13/23 History Cholecalciferol [Vitamin D3 (25 50 mcg PO DAILY 06/29/23 08/13/23 History Mcg = 1000 Iu)] Donepezil [Aricept] 10 mg PO QAM 06/29/23 08/13/23 History Dutasteride/Tamsulosin HCl [Yani 1 tab PO HS 06/29/23 08/13/23 History 0.5-0.4 mg Capsule] Empagliflozin [Jardiance] 25 mg PO QAM 06/29/23 08/13/23 History Ginkgo Biloba Learned Extract [Ginkgo 60 mg PO BID 06/29/23 08/13/23 History Biloba] INSULIN ASPART (NovoLOG) [NovoLOG 3 - 15 units SQ AC-TID 06/29/23 08/13/23 History (formulary)] Insulin Glargine,Hum.rec.anlog 35 unit SQ HS 06/29/23 08/13/23 History [Lantus Solostar Pen] Metoprolol Succinate (ER) [Toprol 25 mg PO HS 06/29/23 08/13/23 History XL] Pantoprazole [Protonix] 40 mg PO DAILY PRN 06/29/23 08/13/23 History Vit C/E/Zn/Coppr/Lutein/Zeaxan 2 tab PO DAILY 06/29/23 08/13/23 History [Preservision Areds 2 Softgel] Warfarin [Coumadin] 5 mg PO HS 06/29/23 08/13/23 History ramipriL 10 mg PO BID 06/29/23 08/13/23 History Allergies Allergy/AdvReac Type Severity Reaction Status Date / Time morphine AdvReac Swelling Verified 08/13/23 12:16 Sulfa (Sulfonamide AdvReac Swelling Verified 08/13/23 12:16 Antibiotics) Physical Examination Osteopathic Statement: *. No significant issues noted on an osteopathic structural exam other than those noted in the History and Physical/Consult.
[2023-08-15] MEDS ORDERED: ONDANSETRON 4 MG/2 ML VIAL IVP ONE (06:03)
[2023-08-15] MEDS ORDERED: LIDOCAINE 1% (10MG/ML) FOR IV START INTRADERMA PRN (06:03)
[2023-08-15] MEDS ORDERED: LACTATED RINGERS 1,000 ML IV SCH (06:03)
[2023-08-15 06:41] LABS: Glucose,Whole Blood 117 mg/dL (70-110)
[2023-08-15] MEDS ORDERED: PROPOFOL 10 MG/ML 20 ML VIAL IV ONE (06:50)
[2023-08-15] MEDS ORDERED: fentaNYL (PF) 50 MCG/ML 2 ML AMP ONE (06:50)
[2023-08-15] MEDS ORDERED: LIDOCAINE 1% INJ 10MG/ML (20 ML MDV) ONE (06:50)
[2023-08-15] MEDS ORDERED: BUPIVACAINE (PF) 0.5% 30 ML VIAL SQ ONE (06:59)
[2023-08-15] MEDS ORDERED: LIDOCAINE 2% INJ 20 MG/ML SQ ONE (06:59)
[2023-08-15 07:00] VITALS: TEMP 97
[2023-08-15] MEDS ORDERED: fentaNYL (PF) 50 MCG/ML 2 ML AMP IV PRN (07:00)
[2023-08-15 07:18] LABS: INR 1.3 (<1.2); Prothrombin Time 13.3 sec (10.0-12.5)
--- NOTE | 2023-08-15 07:18 | P.OP ---
Date of Procedure: 08/15/23 Preoperative Diagnosis: Right carpal tunnel syndrome Postoperative Diagnosis: Right carpal tunnel syndrome Procedure(s) Performed: Right open carpal tunnel release Anesthesia: MAC Surgeon: Jaquan Fleming Estimated Blood Loss (ml): 0 Pathology: none sent Condition: stable Disposition: PACU Description of Procedure: This is a 78 year old male who presents today for a right open carpal tunnel release after having failed conservative treatment in the past. Risks and benefits of surgery were discussed with the patient including bleeding, damage to surrounding tissue, infection, need for further surgery as well as risks of anesthesia including pulmonary embolism and even and the patient wished to proceed with surgical intervention. The patients was seen in the pre-operative area by myself. Consent and H&P were completed and updated. The correct extremity was marked in the pre-operative area by myself and all other questions were answered. Operative Narrative: The patient was brought to the operating room by the department of anesthesia. They remained on the portable stretcher and a rolling hand table was brought to the side of the operative extremity. Pre-operative time out was performed indicating the correct patient, procedure and laterality. All in the room agreed. The patient was then drifted off to sleep by the department of anesthesia. MAC anesthesia was utilized and a 50:50 mixture of 1% Lidocaine and 0.5% bupivacaine was injected into the subcutaneous tissues of the palmar skin, 8ccs total. A nonsterile tourniquet was then applied to the operative extremity and the right upper extremity was then prepped and draped in normal sterile fashion. The operative extremity was the exsanguinated with an esmarch bandage and the tourniquet was inflated to 250mmHg. 15 blade scalpel was utilized to make a longitudinal incision on the palmar skin in line with the radial boarder of the ring finger to a point distally at the intersection of Kaplans cardinal line. Heiss retractor was utilized to spread subcutaneous tissue and scalpel was used to cut through the superficial palmar fascia to reveal the transverse carpal ligament. The transverse carpal ligament was then sharply incised in line with the incision and tenotomy scissors were used to spread distally and the distal portion of the transverse carpal ligament was released using tenotomy scissors from distal to proximal under direct visualization. The median nerve was directly visualized and was intact. Proximal fascia of the distal forearm was also released under direct visualization taking care to preserve the palmar cutaneous branch of the median nerve. The wound was then closed with 4-0 nylon suture in a horizontal mattress fashion. Sterile dressing was applied consisting of adaptic, 4x4s, webril, and an yaneth bandage. Tourniquet was let down and the hand immediately was well perfused. The patient was then woken by the department of anesthesia and transferred to PACU in stable condition. Jaquan Fleming D.O. Orthopedic Hand/Upper Extremity Surgeon
[2023-08-15 07:28] VITALS: PULSE 74
[2023-08-15 07:30] LABS: Glucose,Whole Blood 120 mg/dL (70-110)
[2023-08-15 07:55] VITALS: BP 125/80; RESP 20
== END 2023-08-15 08:00 | disposition home or self-care (01) ==
LOC: OR 05:38
PROVIDERS: ATTEND Orthopaedic Surgery Hand Surgery
DX: G56.01 Carpal tunnel syndrome, right upper limb (principal); G56.23 Lesion of ulnar nerve, bilateral upper limbs; I25.10 Atherosclerotic heart disease of native coronary artery without angina pectoris; I10 Essential (primary) hypertension; E78.5 Hyperlipidemia, unspecified; E11.9 Type 2 diabetes mellitus without complications; K21.9 Gastro-esophageal reflux disease without esophagitis; Z88.2 Allergy status to sulfonamides; Z88.5 Allergy status to narcotic agent; Z79.82 Long term (current) use of aspirin; Z79.4 Long term (current) use of insulin; Z79.1 Long term (current) use of non-steroidal anti-inflammatories (NSAID); Z79.891 Long term (current) use of opiate analgesic; Z79.84 Long term (current) use of oral hypoglycemic drugs; Z79.899 Other long term (current) drug therapy; Z95.5 Presence of coronary angioplasty implant and graft
CPT/HCPCS: 64721; 85610; J2001 ×2; J0690; J2405; J3010; J2704; J0665

== ENCOUNTER → 2024-01-18 | Outpatient (CLI) | payer MEDICARE ==
--- NOTE | 2024-01-18 16:57 | US ---
EXAMINATION TYPE: US abdomen limited DATE OF EXAM: 01/18/2024 COMPARISON: NONE CLINICAL INDICATION: Male, 78 years old with history of K43.9 VENTRAL HERNIA WITHOUT OBSTRUCTION OR G ANGRE; palpable area sometimes painful x a few years Assess for hernia at location of: midline mid-abdomen The patients area of concern reveals a 3.8x0.4x3.4cm fat containing hernia arising from the ventral w all with a 0.8cm neck which is mostly compressible. Are best seen when patient was standing Several other small fat containing hernias in the area also noted IMPRESSION: Fat-containing hernias as noted. Real-time scanning was performed by the brush machine setter utilizing Valsalva and additional dynamic maneuve rs to assess for hernia.
== END | disposition home or self-care (01) ==
LOC: RADUSWWP 16:08
PROVIDERS: ATTEND Family Medicine
DX: K43.9 Ventral hernia without obstruction or gangrene (principal)
CPT/HCPCS: 76705

== ENCOUNTER 2024-10-10 10:34 | Emergency (ER) | payer MEDICARE ==
--- NOTE | 2024-10-10 11:28 | ED ---
General Adult HPI - General Chief complaint: Dizziness Stated complaint: Weakness Time Seen by Provider: 10/10/24 11:26 Source: patient, EMS, RN notes reviewed Mode of arrival: EMS Limitations: no limitations - History of Present Illness Initial comments: Patient is 79-year-old male presented the ER for evaluation of weakness. Patient states yesterday he felt extremely weak. Patient states he did fall yesterday. He does take Coumadin but denies any head injury or loss of consciousness. He states he was able to get up by himself without difficulty. Patient reports a recent cough and congestion. He denies any chest pain, shortness of breath/wheezing, abdominal pain, dizziness, lightheadedness, nausea, vomiting, constipation/diarrhea or urinary complaints. Patient does report his recently had a cough and congestion as well. Patient has not taken anything for symptoms at this time. No other complaints. - Related Data Home Medications Medication Instructions Recorded Confirmed Aspirin [Adult Low Dose Aspirin EC] 81 mg PO HS 06/29/23 10/10/24 Atorvastatin Calcium [Lipitor] 40 mg PO HS 06/29/23 10/10/24 Cholecalciferol [Vitamin D3 (25 50 mcg PO HS 06/29/23 10/10/24 Mcg = 1000 Iu)] Donepezil [Aricept] 20 mg PO DAILY 06/29/23 10/10/24 Dutasteride/Tamsulosin HCl [Yani 1 tab PO DAILY 06/29/23 10/10/24 0.5-0.4 mg Capsule] Empagliflozin [Jardiance] 25 mg PO DAILY 06/29/23 10/10/24 Ginkgo Biloba [place] Extract [Ginkgo 60 mg PO BID 06/29/23 10/10/24 Biloba] INSULIN ASPART (NovoLOG) [NovoLOG See Protocol SQ AC-TID 06/29/23 10/10/24 (formulary)] Insulin Glargine,Hum.rec.anlog 35 - 39 unit SQ HS 06/29/23 10/10/24 [Lantus Solostar Pen] Metoprolol Succinate (ER) [Toprol 25 mg PO HS 06/29/23 10/10/24 XL] Pantoprazole [Protonix] 40 mg PO DAILY 06/29/23 10/10/24 Vit C/E/Zn/Coppr/Lutein/Zeaxan 1 tab PO BID 06/29/23 10/10/24 [Preservision Areds 2 Softgel] Warfarin [Coumadin] 5 mg PO SUMOTUWETHSA@209906/29/23 10/10/24 ramipriL 10 mg PO BID 06/29/23 10/10/24 Warfarin [Coumadin] 7.5 mg PO FR@209910/10/24 10/10/24 Allergies Allergy/AdvReac Type Severity Reaction Status Date / Time morphine AdvReac Swelling Verified 10/10/24 12:40 Sulfa (Sulfonamide AdvReac Swelling Verified 10/10/24 12:40 Antibiotics) Review of Systems ROS Statement: Those systems with pertinent positive or pertinent negative responses have been documented in the HPI. ROS Other: All systems not noted in ROS Statement are negative. Past Medical History Past Medical History: Diabetes Mellitus, GERD/Reflux, Hyperlipidemia, Hypertension Additional Past Medical History / Comment(s): IDDM. EARLY ONSET DEMENTIA. History of Any Multi-Drug Resistant Organisms: None Reported Past Surgical History: Heart Catheterization With Stent, Orthopedic Surgery Additional Past Surgical History / Comment(s): UTO r/t AMS. KNEE REPLACEMENT ? carpal tunnel 06/2023 Past Anesthesia/Blood Transfusion Reactions: No Reported Reaction Date of Last Stent Placement:: UNKNOWN Past Psychological History: No Psychological Hx Reported Smoking Status: Former smoker - Past Family History Mother Family Medical History: Unable to Obtain General Exam Limitations: no limitations General appearance: alert, in no apparent distress Head exam: Present: atraumatic, normocephalic, normal inspection Eye exam: Present: normal appearance, PERRL, EOMI. Absent: scleral icterus, conjunctival injection, periorbital swelling Pupils: Present: normal accommodation ENT exam: Present: normal exam, normal oropharynx, mucous membranes moist Respiratory exam: Present: normal lung sounds bilaterally. Absent: respiratory distress, wheezes, rales, rhonchi, stridor Cardiovascular Exam: Present: regular rate, normal rhythm, normal heart sounds. Absent: systolic murmur, diastolic murmur, rubs, gallop, clicks GI/Abdominal exam: Present: soft, normal bowel sounds. Absent: distended, tenderness, guarding, rebound, rigid Extremities exam: Present: normal inspection, full ROM, normal capillary refill. Absent: tenderness, pedal edema, joint swelling, calf tenderness Neurological exam: Present: alert, oriented X3, CN II-XII intact Psychiatric exam: Present: normal affect, normal mood Course Vital Signs 10/10/24 10/10/24 10/10/24 10:47 12:30 12:49 Temperature 100.0 F H 98.9 F 98 F Pulse Rate 92 84 Respiratory 19 18 Rate Blood Pressure 157/87 141/98 O2 Sat by Pulse 95 96 Oximetry 10/10/24 14:16 Temperature 98.3 F Pulse Rate 86 Respiratory 18 Rate Blood Pressure 156/88 O2 Sat by Pulse 98 Oximetry Medical Decision Making - Medical Decision Making Was pt. sent in by a medical professional or institution (, PA, [employer] MAKE UP HELPER, urgent care, hospital, or alf...) When possible be specific @ -No Did you speak to anyone other than the patient for history (EMS, parent, family, police, friend...)? What history was obtained from this source @ -No Did you review nursing and triage notes (agree or disagree)? Why? @ -I reviewed and agree with nursing and triage notes Were old charts reviewed (outside hosp., previous admission, EMS record, old EKG, old radiological studies, urgent care reports/EKG's, alf records)? Report findings @ -No old charts were reviewed Differential Diagnosis (chest pain, altered mental status, abdominal pain women, abdominal pain men, vaginal bleeding, weakness, fever, dyspnea, syncope, headache, dizziness, GI bleed, back pain, seizure, CVA, palpatations, mental health, musculoskeletal)? @ -Differential Weakness:Hypoglycemia, shock, sepsis, hyponatremia, anemia, infection, GA, ETOH, adverse medicine reaction, overdose, stroke, this is not meant to be an all-inclusive list. EKG interpreted by me (3pts min.). @ -None done X-rays interpreted by me (1pt min.). @ -CXR interpreted by me negative for acute focal consolidations, pneumothorax or pleural effusions. CT interpreted by me (1pt min.). @ -CT brain negative for acute intracranial process. Remote lacunar infarct of the right basal ganglia. Senescent changes. U/S interpreted by me (1pt. min.). @ -None done What testing was considered but not performed or refused? (CT, X-rays, U/S, labs)? Why? @ -None What meds were considered but not given or refused? Why? @ -None Did you discuss the management of the patient with other professionals (professionals i.e. , PA, [employer] MAKE UP HELPER, lab, RT, psych nurse, social human services assistants, presbyterian clergy, teacher, senior escrow officer, medical case manager)? Give summary @ -No Was smoking cessation discussed for >3mins.? @ -No Was critical care preformed (if so, how long)? @ -No Were there social determinants of health that impacted care today? How? (Homelessness, low income, unemployed, alcoholism, drug addiction, transportation, low edu. Level, literacy, decrease access to med. care, snf, rehab)? @ -No Was there de-escalation of care discussed even if they declined (Discuss DNR or withdrawal of care, Hospice)? DNR status @ -No What co-morbidities impacted this encounter? (DM, HTN, Smoking, COPD, CAD, Cancer, CVA, ARF, Chemo, Hep., AIDS, mental health diagnosis, sleep apnea, morbid obesity)? @ -None Was patient admitted / discharged? Hospital course, mention meds given and route, prescriptions, significant lab abnormalities, going to OR and other pertinent info. @ -Discharge. 79-year-old male presented to the ER via EMS for evaluation of weakness. Patient is febrile upon arrival at 100.0 vitals otherwise stable. Patient in no signs of acute distress nontoxic-appearing. Exam benign. Patient is neurovascularly intact. Laboratory studies unimpressive. Lactic of 2.2 for which patient was given IV fluids. Urine with 4+ glucose which is likely related to patient's diabetes. COVID-positive. CXR negative for acute process. CT brain performed as patient reports fall yesterday morning and is on Coumadin this is negative. Code Coag was considered but not performed as patient reports fall outside of 12 hour frame. No other reported injuries from fall. Patient given IV fluids and Tylenol for symptom control in the ER. Upon reevaluation, patient resting comfortably on stretcher no signs of acute distress. Results discussed with patient, all questions answered. Patient is stable for discharge at this time. I advised [id number] ibuprofen and Tylenol for fever control outpatient. Strict return parameters discussed. Patient discharged in stable condition with follow-up to PCP. Patient verbally expressed understanding and agreement with care plan. Case discussed with ED attending, Dr. Mitchell. Undiagnosed new problem with uncertain prognosis? @ -No Drug Therapy requiring intensive monitoring for toxicity (Heparin, Nitro, Insulin, Cardizem)? @ -No Were any procedures done? @ -No Diagnosis/symptom? @ -COVID-19/acute viral sinusitis Acute, or Chronic, or Acute on Chronic? @ -Acute Uncomplicated (without systemic symptoms) or Complicated (systemic symptoms)? @ -Uncomplicated Side effects of treatment? @ -No Exacerbation, Progression, or Severe Exacerbation? @ -No Poses a threat to life or bodily function? How? (Chest pain, USA, GA, pneumonia, PE, COPD, DKA, ARF, appy, cholecystitis, CVA, Diverticulitis, Homicidal, Suicidal, threat to staff... and all critical care pts) @ -No - Lab Data Result diagrams: 10/10/24 11:34 10/10/24 12:30 Lab Results 10/10/24 10/10/24 10/10/24 Range/Units 11:34 11:34 11:34 WBC 6.9 (3.8-10.6) k/uL RBC 5.66 (4.30-5.90) m/uL Hgb 17.0 (13.0-17.5) gm/dL Hct 51.4 (39.0-53.0) % MCV 90.8 (80.0-100.0) fL MCH 30.0 (25.0-35.0) pg MCHC 33.0 (31.0-37.0) g/dL RDW 14.3 (11.5-15.5) % Plt Count 173 (150-450) k/uL MPV 10.1 Neutrophils % 75 % Lymphocytes % 7 % Monocytes % 13 % Eosinophils % 2 % Basophils % 0 % Neutrophils # 5.2 (1.3-7.7) k/uL Lymphocytes # 0.5 L (1.0-4.8) k/uL Monocytes # 0.9 (0-1.0) k/uL Eosinophils # 0.1 (0-0.7) k/uL Basophils # 0.0 (0-0.2) k/uL Sodium (137-145) mmol/L Potassium (3.5-5.1) mmol/L Chloride (98-107) mmol/L Carbon Dioxide (22-30) mmol/L Anion Gap mmol/L BUN (9-20) mg/dL Creatinine (0.66-1.25) mg/dL Est GFR (CKD-EPI)AfAm (>60 ml/min/1.73 sqM) Est GFR (CKD-EPI)NonAf (>60 ml/min/1.73 sqM) Glucose (74-99) mg/dL Lactic Ac Sepsis Rflx Plasma Lactic Acid Rufino 2.2 H* (0.7-2.0) mmol/L Calcium (8.4-10.2) mg/dL Total Bilirubin (0.2-1.3) mg/dL AST (17-59) U/L ALT (4-49) U/L Alkaline Phosphatase (38-126) U/L Total Protein (6.3-8.2) g/dL Albumin (3.5-5.0) g/dL Urine Color Urine Appearance (Clear) Urine pH (5.0-8.0) Ur Specific Post (1.001-1.035) Urine Protein (Negative) Urine Glucose (UA) (Negative) Urine Ketones (Negative) Urine Blood (Negative) Urine Nitrite (Negative) Urine Bilirubin (Negative) Urine Urobilinogen (<2.0) mg/dL Ur Leukocyte Esterase (Negative) Urine RBC (0-5) /hpf Urine WBC (0-5) /hpf Ur Squamous Epith Cells (0-4) /hpf Urine Mucus (None) /hpf Influenza Type A (PCR) Not Detected (Not Detectd) Influenza Type B (PCR) Not Detected (Not Detectd) RSV (PCR) Not Detected (Not Detectd) SARS-CoV-2 (PCR) Detected A (Not Detectd) 10/10/24 10/10/24 10/10/24 Range/Units 12:22 12:30 12:44 WBC (3.8-10.6) k/uL RBC (4.30-5.90) m/uL Hgb (13.0-17.5) gm/dL Hct (39.0-53.0) % MCV (80.0-100.0) fL MCH (25.0-35.0) pg MCHC (31.0-37.0) g/dL RDW (11.5-15.5) % Plt Count (150-450) k/uL MPV Neutrophils % % Lymphocytes % % Monocytes % % Eosinophils % % Basophils % % Neutrophils # (1.3-7.7) k/uL Lymphocytes # (1.0-4.8) k/uL Monocytes # (0-1.0) k/uL Eosinophils # (0-0.7) k/uL Basophils # (0-0.2) k/uL Sodium 140 (137-145) mmol/L Potassium 4.3 (3.5-5.1) mmol/L Chloride 108 H (98-107) mmol/L Carbon Dioxide 23 (22-30) mmol/L Anion Gap 9 mmol/L BUN 24 H (9-20) mg/dL Creatinine 0.83 (0.66-1.25) mg/dL Est GFR (CKD-EPI)AfAm >90 (>60 ml/min/1.73 sqM) Est GFR (CKD-EPI)NonAf 85 (>60 ml/min/1.73 sqM) Glucose 159 H (74-99) mg/dL Lactic Ac Sepsis Rflx Y Plasma Lactic Acid Rufino (0.7-2.0) mmol/L Calcium 8.9 (8.4-10.2) mg/dL Total Bilirubin 1.1 (0.2-1.3) mg/dL AST 33 (17-59) U/L ALT 30 (4-49) U/L Alkaline Phosphatase 99 (38-126) U/L Total Protein 6.4 (6.3-8.2) g/dL Albumin 4.2 (3.5-5.0) g/dL Urine Color Colorless Urine Appearance Clear (Clear) Urine pH 5.5 (5.0-8.0) Ur Specific Post 1.037 H (1.001-1.035) Urine Protein 1+ H (Negative) Urine Glucose (UA) 4+ H (Negative) Urine Ketones Negative (Negative) Urine Blood Negative (Negative) Urine Nitrite Negative (Negative) Urine Bilirubin Negative (Negative) Urine Urobilinogen <2.0 (<2.0) mg/dL Ur Leukocyte Esterase Negative (Negative) Urine RBC <1 (0-5) /hpf Urine WBC 1 (0-5) /hpf Ur Squamous Epith Cells 1 (0-4) /hpf Urine Mucus Rare H (None) /hpf Influenza Type A (PCR) (Not Detectd) Influenza Type B (PCR) (Not Detectd) RSV (PCR) (Not Detectd) SARS-CoV-2 (PCR) (Not Detectd) - Radiology Data Radiology results: report reviewed, image reviewed Disposition Clinical Impression: COVID-19, Acute viral sinusitis Disposition: HOME SELF-CARE Condition: Stable Additional Instructions: Follow-up with PCP. You may take [id number] Tylenol for fever control at home. Return to the ER for any new or worsening concerns. Is patient prescribed a controlled substance at d/c from ED?: No Referrals: Hung Garnett DO [Primary Care Provider] - 1-2 days Time of Disposition: 13:23
[2024-10-10] MEDS: SODIUM CHLORIDE 0.9% 1,000 ML IV STA (11:31)
[2024-10-10] MEDS: ACETAMINOPHEN TAB 500 MG TAB PO STA (11:32)
[2024-10-10 11:50] LABS: Basophils % (A) 0 %; Eosinophils # (A) 0.1 k/uL (0-0.7); Eosinophils % (A) 2 %; HCT 51.4 % (39.0-53.0); Lymphocytes # (A) 0.5 k/uL (1.0-4.8); Lymphocytes % (A) 7 %; MCV 90.8 fL (80.0-100.0); Mean Platelet Volume 10.1; Monocytes # (A) 0.9 k/uL (0-1.0); Monocytes % (A) 13 %; Neutrophils # (A) 5.2 k/uL (1.3-7.7); Neutrophils % (A) 75 %; Platelet Count 173 k/uL (150-450); RBC 5.66 m/uL (4.30-5.90); RDW 14.3 % (11.5-15.5); WBC 6.9 k/uL (3.8-10.6)
--- NOTE | 2024-10-10 12:08 | CT ---
EXAMINATION TYPE: CT brain wo con DATE OF EXAM: 10/10/2024 COMPARISON: 01/31/2023 CLINICAL INDICATION: Male, 79 years old with history of fall on thinners; PHH, Fall on thinners, no c ode coag called CT DLP: 1197.4 mGycm Automated exposure control for dose reduction was used. Findings: The ventricles, basal cisterns and sulci over convexities are moderately enlarged consistent with mod erate generalized atrophy, appropriate for the patient's age. There is moderate decreased density in the periventricular white matter consistent with chronic ische cindi white matter demyelination. There is a remote lacunar infarct in the right basal ganglia. There is no mass effect or shift of midline structures. There is no acute intra or extra-axial hemorrhage. The posterior fossa including the brainstem, fourth ventricle and cerebellopontine angles appear anahi sly normal. The intraorbital contents appear normal symmetric Visualized paranasal sinuses and mastoid air cells are well aerated. Calvarium is intact. IMPRESSION: 1. Moderate senescent changes as described above. 2. No acute bleed or mass effect. 3. Remote lacunar infarct in the right basal ganglia. [facility], , 10/10/2024 12:06 PM
--- NOTE | 2024-10-10 12:23 | XR ---
EXAMINATION TYPE: XR chest 2V DATE OF EXAM: 10/10/2024 11:48 AM COMPARISON: 10/23/2022 CLINICAL INDICATION: Male, 79 years old with history of fever/cough, , TECHNIQUE: AP and lateral views FINDINGS: Loop recorder device projects at the left base. Heart borderline in size. Diffuse interstitial densit y is similar. No gita consolidation or pleural effusion. IMPRESSION: Similar interstitial density could reflect bronchitis, asthma, or subtle atypical pneumonias. [facility], , 10/10/2024 12:21 PM
[2024-10-10 12:31] LABS: Appearance,Urine Clear (Clear); Bilirubin,Urine Negative (Negative); Blood,Urine Negative (Negative); Color,Urine Colorless; Glucose,Urine (UA) 4+ (Negative); Ketones,Urine Negative (Negative); Leukocyte Esterase,Urine Negative (Negative); Mucus,Urine Rare /hpf; Nitrite,Urine Negative (Negative); PH, Urine 5.5 (5.0-8.0); Protein,Urine 1+ (Negative); RBC,Urine <1 /hpf (0-5); Specific Gravity,Urine 1.037 (1.001-1.035); Squamous Epithelial Cell,Urine 1 /hpf (0-4); Urobilinogen,Urine <2.0 mg/dL (<2.0); WBC,Urine 1 /hpf (0-5)
[2024-10-10 12:50] VITALS: RESP 18
[2024-10-10 12:55] LABS: ALT 30 U/L (4-49); AST 33 U/L (17-59); African American GFR (CKD) >90 (>60 ml/min/1.73 sqM); Albumin 4.2 g/dL (3.5-5.0); Alkaline Phosphatase 99 U/L (38-126); Anion Gap 9 mmol/L; Blood Urea Nitrogen 24 mg/dL (9-20); Calcium 8.9 mg/dL (8.4-10.2); Carbon Dioxide 23 mmol/L (22-30); Chloride 108 mmol/L (98-107); Glucose 159 mg/dL (74-99); Non-African American GFR(CKD) 85 (>60 ml/min/1.73 sqM); Potassium 4.3 mmol/L (3.5-5.1); Sodium 140 mmol/L (137-145); Total Bilirubin 1.1 mg/dL (0.2-1.3); Total Protein 6.4 g/dL (6.3-8.2)
[2024-10-10 14:17] VITALS: BP 156/88; PULSE 86; TEMP 98.3
== END 2024-10-10 14:17 | disposition home or self-care (01) ==
LOC: EC 10:34
DX: U07.1 COVID-19 (principal); J01.90 Acute sinusitis, unspecified; Z86.73 Personal history of transient ischemic attack (TIA), and cerebral infarction without residual deficits; Z87.891 Personal history of nicotine dependence; Z88.2 Allergy status to sulfonamides; Z88.5 Allergy status to narcotic agent
CPT/HCPCS: 36415; 70450; 71046; 80053; 81001; 83605; 85025; 87636; 96360; 99284

== ENCOUNTER 2024-10-15 18:50 | Inpatient (IN) | payer MEDICARE ==
--- NOTE | 2024-10-15 19:10 | ED ---
Weakness HPI - General Chief complaint: Fall Stated complaint: Fall Time Seen by Provider: 10/15/24 18:56 Source: patient, EMS, RN notes reviewed, old records reviewed Mode of arrival: EMS Limitations: no limitations - History of Present Illness Initial comments: This is a 79-year-old male to the ER for evaluation today, patient presents today for evaluation of a fall fall and patient was unable to get up. Patient called EMS and brought to the ER for evaluation. Patient was diagnosed with pneumonia around 1 week ago MD Complaint: generalized weakness, lack of energy -: hour(s) Location: generalized Severity: severe Severity scale (1-10): 10 Consistency: constant Improves with: none Worsens with: none Context: recent illness (Coronavirus), history of similar Associated Symptoms: denies other symptoms - Related Data Home Medications Medication Instructions Recorded Confirmed Aspirin [Adult Low Dose Aspirin EC] 81 mg PO HS 06/29/23 10/16/24 Atorvastatin Calcium [Lipitor] 40 mg PO HS 06/29/23 10/16/24 Cholecalciferol [Vitamin D3 (25 50 mcg PO HS 06/29/23 10/16/24 Mcg = 1000 Iu)] Donepezil [Aricept] 20 mg PO DAILY 06/29/23 10/16/24 Dutasteride/Tamsulosin HCl [Yani 1 tab PO DAILY 06/29/23 10/16/24 0.5-0.4 mg Capsule] Empagliflozin [Jardiance] 25 mg PO DAILY 06/29/23 10/16/24 Ginkgo Biloba Pink Extract [Ginkgo 60 mg PO BID 06/29/23 10/16/24 Biloba] INSULIN ASPART (NovoLOG) [NovoLOG See Protocol SQ AC-TID 06/29/23 10/16/24 (formulary)] Insulin Glargine,Hum.rec.anlog 35 - 39 unit SQ HS 06/29/23 10/16/24 [Lantus Solostar Pen] Metoprolol Succinate (ER) [Toprol 25 mg PO HS 06/29/23 10/16/24 XL] Pantoprazole [Protonix] 40 mg PO DAILY 06/29/23 10/16/24 Vit C/E/Zn/Coppr/Lutein/Zeaxan 1 tab PO BID 06/29/23 10/16/24 [Preservision Areds 2 Softgel] Warfarin [Coumadin] 5 mg PO SUMOTUWETHSA@209906/29/23 10/16/24 ramipriL 10 mg PO BID 06/29/23 10/16/24 Warfarin [Coumadin] 7.5 mg PO FR@209910/10/24 10/16/24 Memantine [Namenda] 10 mg PO BID 10/16/24 10/16/24 Allergies Allergy/AdvReac Type Severity Reaction Status Date / Time morphine Allergy Swelling Verified 10/16/24 09:45 Sulfa (Sulfonamide Allergy Swelling Verified 10/16/24 09:45 Antibiotics) Review of Systems ROS Statement: Those systems with pertinent positive or pertinent negative responses have been documented in the HPI. ROS Other: All systems not noted in ROS Statement are negative. Past Medical History Past Medical History: Diabetes Mellitus, GERD/Reflux, Hyperlipidemia, H ypertension Additional Past Medical History / Comment(s): IDDM. EARLY ONSET DEMENTIA. History of Any Multi-Drug Resistant Organisms: None Reported Past Surgical History: Heart Catheterization With Stent, Orthopedic Surgery Additional Past Surgical History / Comment(s): UTO r/t AMS. KNEE REPLACEMENT ? carpal tunnel 06/2023 Past Anesthesia/Blood Transfusion Reactions: No Reported Reaction Date of Last Stent Placement:: UNKNOWN Past Psychological History: No Psychological Hx Reported Smoking Status: Former smoker Past Alcohol Use History: Rare Past Drug Use History: None Reported - Past Family History Mother Family Medical History: Unable to Obtain General Exam Limitations: no limitations General appearance: alert, in no apparent distress Head exam: Present: atraumatic, normocephalic, normal inspection Eye exam: Present: normal appearance, PERRL, EOMI. Absent: scleral icterus, conjunctival injection, periorbital swelling ENT exam: Present: normal exam, mucous membranes moist Neck exam: Present: normal inspection. Absent: tenderness, meningismus, lymphadenopathy Respiratory exam: Present: normal lung sounds bilaterally. Absent: respiratory distress, wheezes, rales, rhonchi, stridor Cardiovascular Exam: Present: regular rate, normal rhythm, normal heart sounds. Absent: systolic murmur, diastolic murmur, rubs, gallop, clicks GI/Abdominal exam: Present: soft, normal bowel sounds. Absent: distended, tenderness, guarding, rebound, rigid Extremities exam: Present: normal inspection, full ROM, normal capillary refill. Absent: tenderness, pedal edema, joint swelling, calf tenderness Back exam: Present: normal inspection Neurological exam: Present: alert, oriented X3, CN II-XII intact Psychiatric exam: Present: normal affect, normal mood Skin exam: Present: warm, dry, intact, normal color. Absent: rash Course Vital Signs 10/15/24 10/15/24 10/16/24 18:54 23:00 00:00 Temperature 98.9 F Pulse Rate 92 73 68 Respiratory 18 16 20 Rate Blood Pressure 159/80 104/86 102/63 O2 Sat by Pulse 95 94 L 92 L Oximetry 10/16/24 10/16/24 10/16/24 02:20 04:08 06:11 Temperature Pulse Rate 75 72 80 Respiratory 18 18 18 Rate Blood Pressure 132/79 125/92 O2 Sat by Pulse 94 L 96 Oximetry 10/16/24 10/16/24 10/16/24 06:50 11:20 12:00 Temperature 100.9 F H 100.2 F H Pulse Rate 95 92 Respiratory 22 33 H Rate Blood Pressure 125/74 125/74 O2 Sat by Pulse 91 L 94 L Oximetry 10/16/24 10/16/24 15:40 17:00 Temperature 101.0 F H Pulse Rate 90 92 Respiratory 18 20 Rate Blood Pressure 126/73 106/72 O2 Sat by Pulse 96 96 Oximetry - Reevaluation(s) Reevaluation #1: 10/15/24 19:18 Medical records reviewed Reevaluation #2: 10/15/24 20:26 Patient still weak here in the ER Reevaluation #3: 10/15/24 20:26 Patient informed of results questions answered Reevaluation #4: Was pt. sent in by a medical professional or institution (, PA, STORAGE WORKER, urgent care, hospital, or [facility]...) When possible be specific @ -no Did you speak to anyone other than the patient for history (EMS, parent, family, police, friend...)? What history was obtained from this source @ -no Did you review nursing and triage notes (agree or disagree)? Why? @ -agree Are old charts reviewed (outside hosp., previous admission, EMS record, old EKG, old radiological studies, urgent care reports/EKG's, [facility] records)? Report findings @ -yes Differential Diagnosis (chest pain, altered mental status, abdominal pain women, abdominal pain men, vaginal bleeding, weakness, fever, dyspnea, syncope, headache, dizziness, GI bleed, back pain, seizure, CVA, palpatations, mental health, musculoskeletal)? @ -prior EKG interpreted by me (3pts min.). @ -yes X-rays interpreted by me (1pt min.). @ -yes coronavirus with atypical pneumonia CT interpreted by me (1pt min.). @ -no U/S interpreted by me (1pt. min.). @ -no What testing was considered but not performed or refused? (CT, X-rays, U/S, labs)? Why? @ -none What meds were considered but not given or refused? Why? @ -none Did you discuss the management of the patient with other professionals (professionals i.e. , PA, STORAGE WORKER, lab, RT, psych nurse, social service technician, bag machine adjuster, teacher, trust officer, welfare case worker)? Give summary @ -no Was smoking cessation discussed for >3mins.? @ -no Was critical care preformed (if so, how long)? @ -no Were there social determinants of health that impacted care today? How? (Homelessness, low income, unemployed, alcoholism, drug addiction, transportation, low edu. Level, literacy, decrease access to med. care, fdc, rehab)? @ -none Was there de-escalation of care discussed even if they declined (Discuss DNR or withdrawal of care, Hospice)? DNR status @ -no What co-morbidities impacted this encounter? (DM, HTN, Smoking, COPD, CAD, Cancer, CVA, ARF, Chemo, Hep., AIDS, mental health diagnosis, sleep apnea, morbid obesity)? @ -none Was patient admitted / discharged? Hospital course, mention meds given and route, prescriptions, significant lab abnormalities, going to OR and other pertinent info. @ - 79 male to the ER for evaluation of weakness, he is found here in the ER to have CHF and shortness of breath, recent diagnosis of coronavirus concern for atypical pneumonia. Persistent weakness and will admit for PT OT as well Admit Undiagnosed new problem with uncertain prognosis? @ -no Drug Therapy requiring intensive monitoring for toxicity (Heparin, Nitro, Insulin, Cardizem)? @ -no Were any procedures done? @ -no Diagnosis/symptom? @ -Weakness and debility Acute, or Chronic, or Acute on Chronic? @ -Acute Uncomplicated (without systemic symptoms) or Complicated (systemic symptoms)? @ -Complicated Side effects of treatment? @ -no Exacerbation, Progression, or Severe Exacerbation? @ -exacerbation Poses a threat to life or bodily function? How? (Chest pain, USA, VA, pneumonia, PE, COPD, DKA, ARF, appy, cholecystitis, CVA, Diverticulitis, Homicidal, Suicidal, threat to staff... and all critical care pts) @ -yes extremes of age Reevaluation #5: Differential Weakness: Hypoglycemia, shock, sepsis, hyponatremia, anemia, infection, VA, ETOH, adverse medicine reaction, overdose, stroke, this is not meant to be an all-inclusive list. - Consultations Consultation #1: Spoke with [facility] who agrees to admit this patient EKG Findings - EKG Comments: EKG Findings:: EKG is sinus 84 IA 157 QRS 85 QTc 413 - EKG Results: EKG: interpreted by DANIEL Medical Decision Making - Medical Decision Making 79 male to the ER for evaluation of weakness, he is found here in the ER to have CHF and shortness of breath, recent diagnosis of coronavirus concern for atypical pneumonia. Persistent weakness and will admit for PT OT as well - Lab Data Result diagrams: 10/19/24 07:41 10/20/24 07:38 Lab Results 10/15/24 10/15/24 10/15/24 Range/Units 19:35 19:35 19:35 WBC 4.7 (3.8-10.6) k/uL RBC 5.66 (4.30-5.90) m/uL Hgb 16.9 (13.0-17.5) gm/dL Hct 50.3 (39.0-53.0) % MCV 89.0 (80.0-100.0) fL MCH 30.0 (25.0-35.0) pg MCHC 33.7 (31.0-37.0) g/dL RDW 14.1 (11.5-15.5) % Plt Count 129 L (150-450) k/uL MPV 8.5 Neutrophils % 69 % Lymphocytes % 16 % Monocytes % 12 % Eosinophils % 0 % Basophils % 0 % Neutrophils # 3.2 (1.3-7.7) k/uL Lymphocytes # 0.8 L (1.0-4.8) k/uL Monocytes # 0.6 (0-1.0) k/uL Eosinophils # 0.0 (0-0.7) k/uL Basophils # 0.0 (0-0.2) k/uL PT 12.4 (10.0-12.5) sec INR 1.1 (<1.2) APTT 22.6 (22.0-30.0) sec D-Dimer (<0.60) mg/L FEU Sodium 135 L (137-145) mmol/L Potassium 4.4 (3.5-5.1) mmol/L Chloride 101 (98-107) mmol/L Carbon Dioxide 20 L (22-30) mmol/L Anion Gap 14 mmol/L BUN 30 H (9-20) mg/dL Creatinine 0.78 (0.66-1.25) mg/dL Est GFR (CKD-EPI)AfAm >90 (>60 ml/min/1.73 sqM) Est GFR (CKD-EPI)NonAf 87 (>60 ml/min/1.73 sqM) Glucose 126 H (74-99) mg/dL POC Glucose (mg/dL) (70-110) mg/dL POC Glu Collection Team Lead ID Lactic Ac Sepsis Rflx Plasma Lactic Acid Rufino (0.7-2.0) mmol/L Calcium 8.5 (8.4-10.2) mg/dL Phosphorus 4.1 (2.5-4.5) mg/dL Magnesium 2.0 (1.6-2.3) mg/dL Total Bilirubin 1.3 (0.2-1.3) mg/dL AST 113 H (17-59) U/L ALT 46 (4-49) U/L Alkaline Phosphatase 87 (38-126) U/L Troponin I (0.000-0.034) ng/mL C-Reactive Protein (<1.0) mg/dL NT-Pro-B Natriuret Pep 148 pg/mL Total Protein 6.1 L (6.3-8.2) g/dL Albumin 3.8 (3.5-5.0) g/dL Procalcitonin (0.02-0.50) ng/mL Urine Color Urine Appearance (Clear) Urine pH (5.0-8.0) Ur Specific [place] (1.001-1.035) Urine Protein (Negative) Urine Glucose (UA) (Negative) Urine Ketones (Negative) Urine Blood (Negative) Urine Nitrite (Negative) Urine Bilirubin (Negative) Urine Urobilinogen (<2.0) mg/dL Ur Leukocyte Esterase (Negative) Urine RBC (0-5) /hpf Urine WBC (0-5) /hpf Ur Squamous Epith Cells (0-4) /hpf Urine Bacteria (None) /hpf Urine Mucus (None) /hpf 10/15/24 10/15/24 10/15/24 Range/Units 19:35 19:35 19:35 WBC (3.8-10.6) k/uL RBC (4.30-5.90) m/uL Hgb (13.0-17.5) gm/dL Hct (39.0-53.0) % MCV (80.0-100.0) fL MCH (25.0-35.0) pg MCHC (31.0-37.0) g/dL RDW (11.5-15.5) % Plt Count (150-450) k/uL MPV Neutrophils % % Lymphocytes % % Monocytes % % Eosinophils % % Basophils % % Neutrophils # (1.3-7.7) k/uL Lymphocytes # (1.0-4.8) k/uL Monocytes # (0-1.0) k/uL Eosinophils # (0-0.7) k/uL Basophils # (0-0.2) k/uL PT (10.0-12.5) sec INR (<1.2) APTT (22.0-30.0) sec D-Dimer (<0.60) mg/L FEU Sodium (137-145) mmol/L Potassium (3.5-5.1) mmol/L Chloride (98-107) mmol/L Carbon Dioxide (22-30) mmol/L Anion Gap mmol/L BUN (9-20) mg/dL Creatinine (0.66-1.25) mg/dL Est GFR (CKD-EPI)AfAm (>60 ml/min/1.73 sqM) Est GFR (CKD-EPI)NonAf (>60 ml/min/1.73 sqM) Glucose (74-99) mg/dL POC Glucose (mg/dL) (70-110) mg/dL POC Glu Collection Team Lead ID Lactic Ac Sepsis Rflx Plasma Lactic Acid Rufino 2.3 H* (0.7-2.0) mmol/L Calcium (8.4-10.2) mg/dL Phosphorus (2.5-4.5) mg/dL Magnesium (1.6-2.3) mg/dL Total Bilirubin (0.2-1.3) mg/dL AST (17-59) U/L ALT (4-49) U/L Alkaline Phosphatase (38-126) U/L Troponin I 0.028 (0.000-0.034) ng/mL C-Reactive Protein (<1.0) mg/dL NT-Pro-B Natriuret Pep pg/mL Total Protein (6.3-8.2) g/dL Albumin (3.5-5.0) g/dL Procalcitonin 0.15 (0.02-0.50) ng/mL Urine Color Urine Appearance (Clear) Urine pH (5.0-8.0) Ur Specific [place] (1.001-1.035) Urine Protein (Negative) Urine Glucose (UA) (Negative) Urine Ketones (Negative) Urine Blood (Negative) Urine Nitrite (Negative) Urine Bilirubin (Negative) Urine Urobilinogen (<2.0) mg/dL Ur Leukocyte Esterase (Negative) Urine RBC (0-5) /hpf Urine WBC (0-5) /hpf Ur Squamous Epith Cells (0-4) /hpf Urine Bacteria (None) /hpf Urine Mucus (None) /hpf 10/15/24 10/15/24 10/15/24 Range/Units 20:33 22:06 23:31 WBC (3.8-10.6) k/uL RBC (4.30-5.90) m/uL Hgb (13.0-17.5) gm/dL Hct (39.0-53.0) % MCV (80.0-100.0) fL MCH (25.0-35.0) pg MCHC (31.0-37.0) g/dL RDW (11.5-15.5) % Plt Count (150-450) k/uL MPV Neutrophils % % Lymphocytes % % Monocytes % % Eosinophils % % Basophils % % Neutrophils # (1.3-7.7) k/uL Lymphocytes # (1.0-4.8) k/uL Monocytes # (0-1.0) k/uL Eosinophils # (0-0.7) k/uL Basophils # (0-0.2) k/uL PT (10.0-12.5) sec INR (<1.2) APTT (22.0-30.0) sec D-Dimer (<0.60) mg/L FEU Sodium (137-145) mmol/L Potassium (3.5-5.1) mmol/L Chloride (98-107) mmol/L Carbon Dioxide (22-30) mmol/L Anion Gap mmol/L BUN (9-20) mg/dL Creatinine (0.66-1.25) mg/dL Est GFR (CKD-EPI)AfAm (>60 ml/min/1.73 sqM) Est GFR (CKD-EPI)NonAf (>60 ml/min/1.73 sqM) Glucose (74-99) mg/dL POC Glucose (mg/dL) (70-110) mg/dL POC Glu Collection Team Lead ID Lactic Ac Sepsis Rflx Y Plasma Lactic Acid Rufino (0.7-2.0) mmol/L Calcium (8.4-10.2) mg/dL Phosphorus (2.5-4.5) mg/dL Magnesium (1.6-2.3) mg/dL Total Bilirubin (0.2-1.3) mg/dL AST (17-59) U/L ALT (4-49) U/L Alkaline Phosphatase (38-126) U/L Troponin I 0.036 H* (0.000-0.034) ng/mL C-Reactive Protein (<1.0) mg/dL NT-Pro-B Natriuret Pep pg/mL Total Protein (6.3-8.2) g/dL Albumin (3.5-5.0) g/dL Procalcitonin (0.02-0.50) ng/mL Urine Color Colorless Urine Appearance Clear (Clear) Urine pH 5.0 (5.0-8.0) Ur Specific [place] 1.016 (1.001-1.035) Urine Protein 1+ H (Negative) Urine Glucose (UA) 4+ H (Negative) Urine Ketones 1+ H (Negative) Urine Blood Moderate H (Negative) Urine Nitrite Negative (Negative) Urine Bilirubin Negative (Negative) Urine Urobilinogen <2.0 (<2.0) mg/dL Ur Leukocyte Esterase Negative (Negative) Urine RBC <1 (0-5) /hpf Urine WBC 2 (0-5) /hpf Ur Squamous Epith Cells <1 (0-4) /hpf Urine Bacteria Rare H (None) /hpf Urine Mucus Rare H (None) /hpf 10/15/24 10/16/24 10/16/24 Range/Units 23:31 03:02 05:47 WBC (3.8-10.6) k/uL RBC (4.30-5.90) m/uL Hgb (13.0-17.5) gm/dL Hct (39.0-53.0) % MCV (80.0-100.0) fL MCH (25.0-35.0) pg MCHC (31.0-37.0) g/dL RDW (11.5-15.5) % Plt Count (150-450) k/uL MPV Neutrophils % % Lymphocytes % % Monocytes % % Eosinophils % % Basophils % % Neutrophils # (1.3-7.7) k/uL Lymphocytes # (1.0-4.8) k/uL Monocytes # (0-1.0) k/uL Eosinophils # (0-0.7) k/uL Basophils # (0-0.2) k/uL PT 12.7 H (10.0-12.5) sec INR 1.2 H (<1.2) APTT (22.0-30.0) sec D-Dimer 0.48 (<0.60) mg/L FEU Sodium (137-145) mmol/L Potassium (3.5-5.1) mmol/L Chloride (98-107) mmol/L Carbon Dioxide (22-30) mmol/L Anion Gap mmol/L BUN (9-20) mg/dL Creatinine (0.66-1.25) mg/dL Est GFR (CKD-EPI)AfAm (>60 ml/min/1.73 sqM) Est GFR (CKD-EPI)NonAf (>60 ml/min/1.73 sqM) Glucose (74-99) mg/dL POC Glucose (mg/dL) (70-110) mg/dL POC Glu Collection Team Lead ID Lactic Ac Sepsis Rflx Plasma Lactic Acid Rufino 1.2 (0.7-2.0) mmol/L Calcium (8.4-10.2) mg/dL Phosphorus (2.5-4.5) mg/dL Magnesium (1.6-2.3) mg/dL Total Bilirubin (0.2-1.3) mg/dL AST (17-59) U/L ALT (4-49) U/L Alkaline Phosphatase (38-126) U/L Troponin I 0.031 (0.000-0.034) ng/mL C-Reactive Protein (<1.0) mg/dL NT-Pro-B Natriuret Pep pg/mL Total Protein (6.3-8.2) g/dL Albumin (3.5-5.0) g/dL Procalcitonin (0.02-0.50) ng/mL Urine Color Urine Appearance (Clear) Urine pH (5.0-8.0) Ur Specific [place] (1.001-1.035) Urine Protein (Negative) Urine Glucose (UA) (Negative) Urine Ketones (Negative) Urine Blood (Negative) Urine Nitrite (Negative) Urine Bilirubin (Negative) Urine Urobilinogen (<2.0) mg/dL Ur Leukocyte Esterase (Negative) Urine RBC (0-5) /hpf Urine WBC (0-5) /hpf Ur Squamous Epith Cells (0-4) /hpf Urine Bacteria (None) /hpf Urine Mucus (None) /hpf 10/16/24 10/16/24 10/17/24 Range/Units 15:49 20:08 06:11 WBC (3.8-10.6) k/uL RBC (4.30-5.90) m/uL Hgb (13.0-17.5) gm/dL Hct (39.0-53.0) % MCV (80.0-100.0) fL MCH (25.0-35.0) pg MCHC (31.0-37.0) g/dL RDW (11.5-15.5) % Plt Count (150-450) k/uL MPV Neutrophils % % Lymphocytes % % Monocytes % % Eosinophils % % Basophils % % Neutrophils # (1.3-7.7) k/uL Lymphocytes # (1.0-4.8) k/uL Monocytes # (0-1.0) k/uL Eosinophils # (0-0.7) k/uL Basophils # (0-0.2) k/uL PT (10.0-12.5) sec INR (<1.2) APTT (22.0-30.0) sec D-Dimer (<0.60) mg/L FEU Sodium (137-145) mmol/L Potassium (3.5-5.1) mmol/L Chloride (98-107) mmol/L Carbon Dioxide (22-30) mmol/L Anion Gap mmol/L BUN (9-20) mg/dL Creatinine (0.66-1.25) mg/dL Est GFR (CKD-EPI)AfAm (>60 ml/min/1.73 sqM) Est GFR (CKD-EPI)NonAf (>60 ml/min/1.73 sqM) Glucose (74-99) mg/dL POC Glucose (mg/dL) 250 H 210 H 156 H (70-110) mg/dL POC Glu Collection Team Lead ID Sonu Wild Lactic Ac Sepsis Rflx Plasma Lactic Acid Rufino (0.7-2.0) mmol/L Calcium (8.4-10.2) mg/dL Phosphorus (2.5-4.5) mg/dL Magnesium (1.6-2.3) mg/dL Total Bilirubin (0.2-1.3) mg/dL AST (17-59) U/L ALT (4-49) U/L Alkaline Phosphatase (38-126) U/L Troponin I (0.000-0.034) ng/mL C-Reactive Protein (<1.0) mg/dL NT-Pro-B Natriuret Pep pg/mL Total Protein (6.3-8.2) g/dL Albumin (3.5-5.0) g/dL Procalcitonin (0.02-0.50) ng/mL Urine Color Urine Appearance (Clear) Urine pH (5.0-8.0) Ur Specific [place] (1.001-1.035) Urine Protein (Negative) Urine Glucose (UA) (Negative) Urine Ketones (Negative) Urine Blood (Negative) Urine Nitrite (Negative) Urine Bilirubin (Negative) Urine Urobilinogen (<2.0) mg/dL Ur Leukocyte Esterase (Negative) Urine RBC (0-5) /hpf Urine WBC (0-5) /hpf Ur Squamous Epith Cells (0-4) /hpf Urine Bacteria (None) /hpf Urine Mucus (None) /hpf 10/17/24 10/17/24 10/17/24 Range/Units 06:34 06:34 06:34 WBC 5.7 (3.8-10.6) k/uL RBC 5.62 (4.30-5.90) m/uL Hgb 17.2 (13.0-17.5) gm/dL Hct 49.9 (39.0-53.0) % MCV 88.8 (80.0-100.0) fL MCH 30.5 (25.0-35.0) pg MCHC 34.4 (31.0-37.0) g/dL RDW 14.2 (11.5-15.5) % Plt Count 128 L (150-450) k/uL MPV 9.0 Neutrophils % 69 % Lymphocytes % 19 % Monocytes % 9 % Eosinophils % 0 % Basophils % 1 % Neutrophils # 3.9 (1.3-7.7) k/uL Lymphocytes # 1.1 (1.0-4.8) k/uL Monocytes # 0.5 (0-1.0) k/uL Eosinophils # 0.0 (0-0.7) k/uL Basophils # 0.0 (0-0.2) k/uL PT 13.2 H (10.0-12.5) sec INR 1.2 H (<1.2) APTT (22.0-30.0) sec D-Dimer (<0.60) mg/L FEU Sodium 137 (137-145) mmol/L Potassium 3.6 (3.5-5.1) mmol/L Chloride 100 (98-107) mmol/L Carbon Dioxide 28 (22-30) mmol/L Anion Gap 9 mmol/L BUN 33 H (9-20) mg/dL Creatinine 1.10 (0.66-1.25) mg/dL Est GFR (CKD-EPI)AfAm 75 (>60 ml/min/1.73 sqM) Est GFR (CKD-EPI)NonAf 65 (>60 ml/min/1.73 sqM) Glucose 150 H (74-99) mg/dL POC Glucose (mg/dL) (70-110) mg/dL POC Glu Collection Team Lead ID Lactic Ac Sepsis Rflx Plasma Lactic Acid Rufino (0.7-2.0) mmol/L Calcium 8.2 L (8.4-10.2) mg/dL Phosphorus (2.5-4.5) mg/dL Magnesium (1.6-2.3) mg/dL Total Bilirubin 1.1 (0.2-1.3) mg/dL AST 114 H (17-59) U/L ALT 54 H (4-49) U/L Alkaline Phosphatase 84 (38-126) U/L Troponin I (0.000-0.034) ng/mL C-Reactive Protein (<1.0) mg/dL NT-Pro-B Natriuret Pep pg/mL Total Protein 6.0 L (6.3-8.2) g/dL Albumin 3.6 (3.5-5.0) g/dL Procalcitonin (0.02-0.50) ng/mL Urine Color Urine Appearance (Clear) Urine pH (5.0-8.0) Ur Specific [place] (1.001-1.035) Urine Protein (Negative) Urine Glucose (UA) (Negative) Urine Ketones (Negative) Urine Blood (Negative) Urine Nitrite (Negative) Urine Bilirubin (Negative) Urine Urobilinogen (<2.0) mg/dL Ur Leukocyte Esterase (Negative) Urine RBC (0-5) /hpf Urine WBC (0-5) /hpf Ur Squamous Epith Cells (0-4) /hpf Urine Bacteria (None) /hpf Urine Mucus (None) /hpf 10/17/24 10/17/24 10/17/24 Range/Units 11:32 16:27 19:57 WBC (3.8-10.6) k/uL RBC (4.30-5.90) m/uL Hgb (13.0-17.5) gm/dL Hct (39.0-53.0) % MCV (80.0-100.0) fL MCH (25.0-35.0) pg MCHC (31.0-37.0) g/dL RDW (11.5-15.5) % Plt Count (150-450) k/uL MPV Neutrophils % % Lymphocytes % % Monocytes % % Eosinophils % % Basophils % % Neutrophils # (1.3-7.7) k/uL Lymphocytes # (1.0-4.8) k/uL Monocytes # (0-1.0) k/uL Eosinophils # (0-0.7) k/uL Basophils # (0-0.2) k/uL PT (10.0-12.5) sec INR (<1.2) APTT (22.0-30.0) sec D-Dimer (<0.60) mg/L FEU Sodium (137-145) mmol/L Potassium (3.5-5.1) mmol/L Chloride (98-107) mmol/L Carbon Dioxide (22-30) mmol/L Anion Gap mmol/L BUN (9-20) mg/dL Creatinine (0.66-1.25) mg/dL Est GFR (CKD-EPI)AfAm (>60 ml/min/1.73 sqM) Est GFR (CKD-EPI)NonAf (>60 ml/min/1.73 sqM) Glucose (74-99) mg/dL POC Glucose (mg/dL) 243 H 232 H 217 H (70-110) mg/dL POC Glu Collection Team Lead ID Nirali Faust Uzma Lactic Ac Sepsis Rflx Plasma Lactic Acid Rufino (0.7-2.0) mmol/L Calcium (8.4-10.2) mg/dL Phosphorus (2.5-4.5) mg/dL Magnesium (1.6-2.3) mg/dL Total Bilirubin (0.2-1.3) mg/dL AST (17-59) U/L ALT (4-49) U/L Alkaline Phosphatase (38-126) U/L Troponin I (0.000-0.034) ng/mL C-Reactive Protein (<1.0) mg/dL NT-Pro-B Natriuret Pep pg/mL Total Protein (6.3-8.2) g/dL Albumin (3.5-5.0) g/dL Procalcitonin (0.02-0.50) ng/mL Urine Color Urine Appearance (Clear) Urine pH (5.0-8.0) Ur Specific [place] (1.001-1.035) Urine Protein (Negative) Urine Glucose (UA) (Negative) Urine Ketones (Negative) Urine Blood (Negative) Urine Nitrite (Negative) Urine Bilirubin (Negative) Urine Urobilinogen (<2.0) mg/dL Ur Leukocyte Esterase (Negative) Urine RBC (0-5) /hpf Urine WBC (0-5) /hpf Ur Squamous Epith Cells (0-4) /hpf Urine Bacteria (None) /hpf Urine Mucus (None) /hpf 10/18/24 10/18/24 10/18/24 Range/Units 05:46 05:46 05:46 WBC 5.3 (3.8-10.6) k/uL RBC 5.36 (4.30-5.90) m/uL Hgb 15.5 (13.0-17.5) gm/dL Hct 46.8 (39.0-53.0) % MCV 87.3 (80.0-100.0) fL MCH 28.8 (25.0-35.0) pg MCHC 33.0 (31.0-37.0) g/dL RDW 14.2 (11.5-15.5) % Plt Count 136 L (150-450) k/uL MPV 9.1 Neutrophils % 65 % Lymphocytes % 22 % Monocytes % 10 % Eosinophils % 1 % Basophils % 0 % Neutrophils # 3.5 (1.3-7.7) k/uL Lymphocytes # 1.2 (1.0-4.8) k/uL Monocytes # 0.5 (0-1.0) k/uL Eosinophils # 0.1 (0-0.7) k/uL Basophils # 0.0 (0-0.2) k/uL PT 16.4 H (10.0-12.5) sec INR 1.6 H (<1.2) APTT (22.0-30.0) sec D-Dimer (<0.60) mg/L FEU Sodium 132 L (137-145) mmol/L Potassium 3.3 L (3.5-5.1) mmol/L Chloride 99 (98-107) mmol/L Carbon Dioxide 26 (22-30) mmol/L Anion Gap 7 mmol/L BUN 36 H (9-20) mg/dL Creatinine 0.94 (0.66-1.25) mg/dL Est GFR (CKD-EPI)AfAm >90 (>60 ml/min/1.73 sqM) Est GFR (CKD-EPI)NonAf 78 (>60 ml/min/1.73 sqM) Glucose 145 H (74-99) mg/dL POC Glucose (mg/dL) (70-110) mg/dL POC Glu Collection Team Lead ID Lactic Ac Sepsis Rflx Plasma Lactic Acid Rufino (0.7-2.0) mmol/L Calcium 7.7 L (8.4-10.2) mg/dL Phosphorus (2.5-4.5) mg/dL Magnesium (1.6-2.3) mg/dL Total Bilirubin 0.7 (0.2-1.3) mg/dL AST 77 H (17-59) U/L ALT 42 (4-49) U/L Alkaline Phosphatase 75 (38-126) U/L Troponin I (0.000-0.034) ng/mL C-Reactive Protein (<1.0) mg/dL NT-Pro-B Natriuret Pep pg/mL Total Protein 5.3 L (6.3-8.2) g/dL Albumin 3.0 L (3.5-5.0) g/dL Procalcitonin (0.02-0.50) ng/mL Urine Color Urine Appearance (Clear) Urine pH (5.0-8.0) Ur Specific [place] (1.001-1.035) Urine Protein (Negative) Urine Glucose (UA) (Negative) Urine Ketones (Negative) Urine Blood (Negative) Urine Nitrite (Negative) Urine Bilirubin (Negative) Urine Urobilinogen (<2.0) mg/dL Ur Leukocyte Esterase (Negative) Urine RBC (0-5) /hpf Urine WBC (0-5) /hpf Ur Squamous Epith Cells (0-4) /hpf Urine Bacteria (None) /hpf Urine Mucus (None) /hpf 10/18/24 10/18/24 10/18/24 Range/Units 06:12 09:03 11:31 WBC (3.8-10.6) k/uL RBC (4.30-5.90) m/uL Hgb (13.0-17.5) gm/dL Hct (39.0-53.0) % MCV (80.0-100.0) fL MCH (25.0-35.0) pg MCHC (31.0-37.0) g/dL RDW (11.5-15.5) % Plt Count (150-450) k/uL MPV Neutrophils % % Lymphocytes % % Monocytes % % Eosinophils % % Basophils % % Neutrophils # (1.3-7.7) k/uL Lymphocytes # (1.0-4.8) k/uL Monocytes # (0-1.0) k/uL Eosinophils # (0-0.7) k/uL Basophils # (0-0.2) k/uL PT (10.0-12.5) sec INR (<1.2) APTT (22.0-30.0) sec D-Dimer (<0.60) mg/L FEU Sodium (137-145) mmol/L Potassium (3.5-5.1) mmol/L Chloride (98-107) mmol/L Carbon Dioxide (22-30) mmol/L Anion Gap mmol/L BUN (9-20) mg/dL Creatinine (0.66-1.25) mg/dL Est GFR (CKD-EPI)AfAm (>60 ml/min/1.73 sqM) Est GFR (CKD-EPI)NonAf (>60 ml/min/1.73 sqM) Glucose (74-99) mg/dL POC Glucose (mg/dL) 166 H 242 H (70-110) mg/dL POC Glu Collection Team Lead ID Govind Doyle Lactic Ac Sepsis Rflx Plasma Lactic Acid Rufino (0.7-2.0) mmol/L Calcium (8.4-10.2) mg/dL Phosphorus (2.5-4.5) mg/dL Magnesium 2.2 (1.6-2.3) mg/dL Total Bilirubin (0.2-1.3) mg/dL AST (17-59) U/L ALT (4-49) U/L Alkaline Phosphatase (38-126) U/L Troponin I (0.000-0.034) ng/mL C-Reactive Protein (<1.0) mg/dL NT-Pro-B Natriuret Pep pg/mL Total Protein (6.3-8.2) g/dL Albumin (3.5-5.0) g/dL Procalcitonin (0.02-0.50) ng/mL Urine Color Urine Appearance (Clear) Urine pH (5.0-8.0) Ur Specific [place] (1.001-1.035) Urine Protein (Negative) Urine Glucose (UA) (Negative) Urine Ketones (Negative) Urine Blood (Negative) Urine Nitrite (Negative) Urine Bilirubin (Negative) Urine Urobilinogen (<2.0) mg/dL Ur Leukocyte Esterase (Negative) Urine RBC (0-5) /hpf Urine WBC (0-5) /hpf Ur Squamous Epith Cells (0-4) /hpf Urine Bacteria (None) /hpf Urine Mucus (None) /hpf 10/18/24 10/18/24 10/19/24 Range/Units 16:37 20:46 06:17 WBC (3.8-10.6) k/uL RBC (4.30-5.90) m/uL Hgb (13.0-17.5) gm/dL Hct (39.0-53.0) % MCV (80.0-100.0) fL MCH (25.0-35.0) pg MCHC (31.0-37.0) g/dL RDW (11.5-15.5) % Plt Count (150-450) k/uL MPV Neutrophils % % Lymphocytes % % Monocytes % % Eosinophils % % Basophils % % Neutrophils # (1.3-7.7) k/uL Lymphocytes # (1.0-4.8) k/uL Monocytes # (0-1.0) k/uL Eosinophils # (0-0.7) k/uL Basophils # (0-0.2) k/uL PT (10.0-12.5) sec INR (<1.2) APTT (22.0-30.0) sec D-Dimer (<0.60) mg/L FEU Sodium (137-145) mmol/L Potassium (3.5-5.1) mmol/L Chloride (98-107) mmol/L Carbon Dioxide (22-30) mmol/L Anion Gap mmol/L BUN (9-20) mg/dL Creatinine (0.66-1.25) mg/dL Est GFR (CKD-EPI)AfAm (>60 ml/min/1.73 sqM) Est GFR (CKD-EPI)NonAf (>60 ml/min/1.73 sqM) Glucose (74-99) mg/dL POC Glucose (mg/dL) 170 H 301 H 119 H (70-110) mg/dL POC Glu Collection Team Lead ID [place] Myers Lactic Ac Sepsis Rflx Plasma Lactic Acid Rufino (0.7-2.0) mmol/L Calcium (8.4-10.2) mg/dL Phosphorus (2.5-4.5) mg/dL Magnesium (1.6-2.3) mg/dL Total Bilirubin (0.2-1.3) mg/dL AST (17-59) U/L ALT (4-49) U/L Alkaline Phosphatase (38-126) U/L Troponin I (0.000-0.034) ng/mL C-Reactive Protein (<1.0) mg/dL NT-Pro-B Natriuret Pep pg/mL Total Protein (6.3-8.2) g/dL Albumin (3.5-5.0) g/dL Procalcitonin (0.02-0.50) ng/mL Urine Color Urine Appearance (Clear) Urine pH (5.0-8.0) Ur Specific [place] (1.001-1.035) Urine Protein (Negative) Urine Glucose (UA) (Negative) Urine Ketones (Negative) Urine Blood (Negative) Urine Nitrite (Negative) Urine Bilirubin (Negative) Urine Urobilinogen (<2.0) mg/dL Ur Leukocyte Esterase (Negative) Urine RBC (0-5) /hpf Urine WBC (0-5) /hpf Ur Squamous Epith Cells (0-4) /hpf Urine Bacteria (None) /hpf Urine Mucus (None) /hpf 10/19/24 10/19/24 10/19/24 Range/Units 07:41 07:41 07:41 WBC 5.9 (3.8-10.6) k/uL RBC 5.44 (4.30-5.90) m/uL Hgb 16.1 (13.0-17.5) gm/dL Hct 47.7 (39.0-53.0) % MCV 87.7 (80.0-100.0) fL MCH 29.6 (25.0-35.0) pg MCHC 33.8 (31.0-37.0) g/dL RDW 14.2 (11.5-15.5) % Plt Count 158 (150-450) k/uL MPV 8.6 Neutrophils % 59 % Lymphocytes % 25 % Monocytes % 10 % Eosinophils % 3 % Basophils % 1 % Neutrophils # 3.5 (1.3-7.7) k/uL Lymphocytes # 1.5 (1.0-4.8) k/uL Monocytes # 0.6 (0-1.0) k/uL Eosinophils # 0.2 (0-0.7) k/uL Basophils # 0.0 (0-0.2) k/uL PT (10.0-12.5) sec INR (<1.2) APTT (22.0-30.0) sec D-Dimer (<0.60) mg/L FEU Sodium 136 L (137-145) mmol/L Potassium 3.7 (3.5-5.1) mmol/L Chloride 104 (98-107) mmol/L Carbon Dioxide 25 (22-30) mmol/L Anion Gap 7 mmol/L BUN 31 H (9-20) mg/dL Creatinine 0.80 (0.66-1.25) mg/dL Est GFR (CKD-EPI)AfAm >90 (>60 ml/min/1.73 sqM) Est GFR (CKD-EPI)NonAf 87 (>60 ml/min/1.73 sqM) Glucose 129 H (74-99) mg/dL POC Glucose (mg/dL) (70-110) mg/dL POC Glu Collection Team Lead ID Lactic Ac Sepsis Rflx Plasma Lactic Acid Rufino (0.7-2.0) mmol/L Calcium 8.1 L (8.4-10.2) mg/dL Phosphorus (2.5-4.5) mg/dL Magnesium (1.6-2.3) mg/dL Total Bilirubin 0.7 (0.2-1.3) mg/dL AST 72 H (17-59) U/L ALT 42 (4-49) U/L Alkaline Phosphatase 86 (38-126) U/L Troponin I (0.000-0.034) ng/mL C-Reactive Protein 6.4 H (<1.0) mg/dL NT-Pro-B Natriuret Pep pg/mL Total Protein 5.4 L (6.3-8.2) g/dL Albumin 3.0 L (3.5-5.0) g/dL Procalcitonin 0.16 (0.02-0.50) ng/mL Urine Color Urine Appearance (Clear) Urine pH (5.0-8.0) Ur Specific [place] (1.001-1.035) Urine Protein (Negative) Urine Glucose (UA) (Negative) Urine Ketones (Negative) Urine Blood (Negative) Urine Nitrite (Negative) Urine Bilirubin (Negative) Urine Urobilinogen (<2.0) mg/dL Ur Leukocyte Esterase (Negative) Urine RBC (0-5) /hpf Urine WBC (0-5) /hpf Ur Squamous Epith Cells (0-4) /hpf Urine Bacteria (None) /hpf Urine Mucus (None) /hpf 10/19/24 10/19/24 10/19/24 Range/Units 07:41 11:25 15:00 WBC (3.8-10.6) k/uL RBC (4.30-5.90) m/uL Hgb (13.0-17.5) gm/dL Hct (39.0-53.0) % MCV (80.0-100.0) fL MCH (25.0-35.0) pg MCHC (31.0-37.0) g/dL RDW (11.5-15.5) % Plt Count (150-450) k/uL MPV Neutrophils % % Lymphocytes % % Monocytes % % Eosinophils % % Basophils % % Neutrophils # (1.3-7.7) k/uL Lymphocytes # (1.0-4.8) k/uL Monocytes # (0-1.0) k/uL Eosinophils # (0-0.7) k/uL Basophils # (0-0.2) k/uL PT 24.7 H (10.0-12.5) sec INR 2.5 H (<1.2) APTT (22.0-30.0) sec D-Dimer (<0.60) mg/L FEU Sodium (137-145) mmol/L Potassium (3.5-5.1) mmol/L Chloride (98-107) mmol/L Carbon Dioxide (22-30) mmol/L Anion Gap mmol/L BUN (9-20) mg/dL Creatinine (0.66-1.25) mg/dL Est GFR (CKD-EPI)AfAm (>60 ml/min/1.73 sqM) Est GFR (CKD-EPI)NonAf (>60 ml/min/1.73 sqM) Glucose (74-99) mg/dL POC Glucose (mg/dL) 176 H (70-110) mg/dL POC Glu Collection Team Lead ID [place] Doyle Lactic Ac Sepsis Rflx Plasma Lactic Acid Rufino (0.7-2.0) mmol/L Calcium (8.4-10.2) mg/dL Phosphorus (2.5-4.5) mg/dL Magnesium (1.6-2.3) mg/dL Total Bilirubin (0.2-1.3) mg/dL AST (17-59) U/L ALT (4-49) U/L Alkaline Phosphatase (38-126) U/L Troponin I (0.000-0.034) ng/mL C-Reactive Protein (<1.0) mg/dL NT-Pro-B Natriuret Pep pg/mL Total Protein (6.3-8.2) g/dL Albumin (3.5-5.0) g/dL Procalcitonin (0.02-0.50) ng/mL Urine Color Light Yellow Urine Appearance Clear (Clear) Urine pH 5.5 (5.0-8.0) Ur Specific [place] 1.031 (1.001-1.035) Urine Protein Trace H (Negative) Urine Glucose (UA) 4+ H (Negative) Urine Ketones Negative (Negative) Urine Blood Trace H (Negative) Urine Nitrite Negative (Negative) Urine Bilirubin Negative (Negative) Urine Urobilinogen <2.0 (<2.0) mg/dL Ur Leukocyte Esterase Negative (Negative) Urine RBC 2 (0-5) /hpf Urine WBC 1 (0-5) /hpf Ur Squamous Epith Cells 1 (0-4) /hpf Urine Bacteria (None) /hpf Urine Mucus (None) /hpf 10/19/24 10/19/24 10/20/24 Range/Units 16:50 21:11 06:21 WBC (3.8-10.6) k/uL RBC (4.30-5.90) m/uL Hgb (13.0-17.5) gm/dL Hct (39.0-53.0) % MCV (80.0-100.0) fL MCH (25.0-35.0) pg MCHC (31.0-37.0) g/dL RDW (11.5-15.5) % Plt Count (150-450) k/uL MPV Neutrophils % % Lymphocytes % % Monocytes % % Eosinophils % % Basophils % % Neutrophils # (1.3-7.7) k/uL Lymphocytes # (1.0-4.8) k/uL Monocytes # (0-1.0) k/uL Eosinophils # (0-0.7) k/uL Basophils # (0-0.2) k/uL PT (10.0-12.5) sec INR (<1.2) APTT (22.0-30.0) sec D-Dimer (<0.60) mg/L FEU Sodium (137-145) mmol/L Potassium (3.5-5.1) mmol/L Chloride (98-107) mmol/L Carbon Dioxide (22-30) mmol/L Anion Gap mmol/L BUN (9-20) mg/dL Creatinine (0.66-1.25) mg/dL Est GFR (CKD-EPI)AfAm (>60 ml/min/1.73 sqM) Est GFR (CKD-EPI)NonAf (>60 ml/min/1.73 sqM) Glucose (74-99) mg/dL POC Glucose (mg/dL) 208 H 194 H 136 H (70-110) mg/dL POC Glu Collection Team Lead RYAN RUIZ Lactic Ac Sepsis Rflx Plasma Lactic Acid Rufino (0.7-2.0) mmol/L Calcium (8.4-10.2) mg/dL Phosphorus (2.5-4.5) mg/dL Magnesium (1.6-2.3) mg/dL Total Bilirubin (0.2-1.3) mg/dL AST (17-59) U/L ALT (4-49) U/L Alkaline Phosphatase (38-126) U/L Troponin I (0.000-0.034) ng/mL C-Reactive Protein (<1.0) mg/dL NT-Pro-B Natriuret Pep pg/mL Total Protein (6.3-8.2) g/dL Albumin (3.5-5.0) g/dL Procalcitonin (0.02-0.50) ng/mL Urine Color Urine Appearance (Clear) Urine pH (5.0-8.0) Ur Specific [place] (1.001-1.035) Urine Protein (Negative) Urine Glucose (UA) (Negative) Urine Ketones (Negative) Urine Blood (Negative) Urine Nitrite (Negative) Urine Bilirubin (Negative) Urine Urobilinogen (<2.0) mg/dL Ur Leukocyte Esterase (Negative) Urine RBC (0-5) /hpf Urine WBC (0-5) /hpf Ur Squamous Epith Cells (0-4) /hpf Urine Bacteria (None) /hpf Urine Mucus (None) /hpf 10/20/24 10/20/24 Range/Units 07:38 07:38 WBC (3.8-10.6) k/uL RBC (4.30-5.90) m/uL Hgb (13.0-17.5) gm/dL Hct (39.0-53.0) % MCV (80.0-100.0) fL MCH (25.0-35.0) pg MCHC (31.0-37.0) g/dL RDW (11.5-15.5) % Plt Count (150-450) k/uL MPV Neutrophils % % Lymphocytes % % Monocytes % % Eosinophils % % Basophils % % Neutrophils # (1.3-7.7) k/uL Lymphocytes # (1.0-4.8) k/uL Monocytes # (0-1.0) k/uL Eosinophils # (0-0.7) k/uL Basophils # (0-0.2) k/uL PT 23.4 H (10.0-12.5) sec INR 2.3 H (<1.2) APTT (22.0-30.0) sec D-Dimer (<0.60) mg/L FEU Sodium 138 (137-145) mmol/L Potassium 4.3 (3.5-5.1) mmol/L Chloride 104 (98-107) mmol/L Carbon Dioxide 23 (22-30) mmol/L Anion Gap 11 mmol/L BUN 25 H (9-20) mg/dL Creatinine 0.75 (0.66-1.25) mg/dL Est GFR (CKD-EPI)AfAm >90 (>60 ml/min/1.73 sqM) Est GFR (CKD-EPI)NonAf 89 (>60 ml/min/1.73 sqM) Glucose 136 H (74-99) mg/dL POC Glucose (mg/dL) (70-110) mg/dL POC Glu Collection Team Lead ID Lactic Ac Sepsis Rflx Plasma Lactic Acid Rufino (0.7-2.0) mmol/L Calcium 8.3 L (8.4-10.2) mg/dL Phosphorus (2.5-4.5) mg/dL Magnesium (1.6-2.3) mg/dL Total Bilirubin (0.2-1.3) mg/dL AST (17-59) U/L ALT (4-49) U/L Alkaline Phosphatase (38-126) U/L Troponin I (0.000-0.034) ng/mL C-Reactive Protein (<1.0) mg/dL NT-Pro-B Natriuret Pep pg/mL Total Protein (6.3-8.2) g/dL Albumin (3.5-5.0) g/dL Procalcitonin (0.02-0.50) ng/mL Urine Color Urine Appearance (Clear) Urine pH (5.0-8.0) Ur Specific [place] (1.001-1.035) Urine Protein (Negative) Urine Glucose (UA) (Negative) Urine Ketones (Negative) Urine Blood (Negative) Urine Nitrite (Negative) Urine Bilirubin (Negative) Urine Urobilinogen (<2.0) mg/dL Ur Leukocyte Esterase (Negative) Urine RBC (0-5) /hpf Urine WBC (0-5) /hpf Ur Squamous Epith Cells (0-4) /hpf Urine Bacteria (None) /hpf Urine Mucus (None) /hpf - EKG Data -: EKG Interpreted by Ga - Radiology Data Radiology results: report reviewed (Chest x-ray for pulmonary edema), image reviewed Disposition Clinical Impression: Fall, COVID-19, CHF (congestive heart failure), Weakness, Pulmonary edema Disposition: ADMITTED IP TO THIS HOSP Condition: Fair Is patient prescribed a controlled substance at d/c from ED?: No Time of Disposition: 20:20
[2024-10-15] MEDS: IBUPROFEN 600 MG TAB PO STA (19:46)
[2024-10-15] MEDS: ACETAMINOPHEN TAB 500 MG TAB PO STA (19:47)
[2024-10-15] MEDS: SODIUM CHLORIDE 0.9% 1,000 ML IV STA ×2 (19:48→19:50)
[2024-10-15 20:14] LABS: Basophils % (A) 0 %; Eosinophils % (A) 0 %; HCT 50.3 % (39.0-53.0); HGB 16.9 gm/dL (13.0-17.5); Lymphocytes # (A) 0.8 k/uL (1.0-4.8); Lymphocytes % (A) 16 %; MCHC 33.7 g/dL (31.0-37.0); Mean Platelet Volume 8.5; Monocytes # (A) 0.6 k/uL (0-1.0); Monocytes % (A) 12 %; Neutrophils # (A) 3.2 k/uL (1.3-7.7); Neutrophils % (A) 69 %; Platelet Count 129 k/uL (150-450); RBC 5.66 m/uL (4.30-5.90); RDW 14.1 % (11.5-15.5); WBC 4.7 k/uL (3.8-10.6)
--- NOTE | 2024-10-15 20:18 | XR ---
EXAMINATION TYPE: XR chest 2V DATE OF EXAM: 10/15/2024 8:11 PM COMPARISON: Previous chest radiograph 10/10/2024. CLINICAL INDICATION: Male, 79 years old with history of Weakness; H TECHNIQUE: XR chest 2V Frontal and lateral views of the chest. FINDINGS: Mild cardiomegaly. Mild pulmonary vascular congestive changes bilaterally. No sizable pleural effusion. No pneumothorax. No acute osseous abnormality. IMPRESSION: Cardiomegaly mild pulmonary vascular congestive changes. [facility], , 10/15/2024 8:16 PM
[2024-10-15 20:25] LABS: INR 1.1 (<1.2); Partial Thromboplastin Time 22.6 sec (22.0-30.0); Prothrombin Time 12.4 sec (10.0-12.5)
[2024-10-15 20:31] LABS: ALT 46 U/L (4-49); African American GFR (CKD) >90 (>60 ml/min/1.73 sqM); Albumin 3.8 g/dL (3.5-5.0); Anion Gap 14 mmol/L; Blood Urea Nitrogen 30 mg/dL (9-20); Calcium 8.5 mg/dL (8.4-10.2); Carbon Dioxide 20 mmol/L (22-30); Chloride 101 mmol/L (98-107); Glucose 126 mg/dL (74-99); Non-African American GFR(CKD) 87 (>60 ml/min/1.73 sqM); Sodium 135 mmol/L (137-145); Total Bilirubin 1.3 mg/dL (0.2-1.3); Total Protein 6.1 g/dL (6.3-8.2)
[2024-10-15] MEDS: FUROSEMIDE 10 MG/ML 4 ML VIAL IV SCH (20:33)
[2024-10-15 20:36] LABS: NT-Pro-B-Type Natriuretic Pept 148 pg/mL
[2024-10-15 20:38] LABS: AST 113 U/L (17-59); Alkaline Phosphatase 87 U/L (38-126); Phosphorus 4.1 mg/dL (2.5-4.5); Potassium 4.4 mmol/L (3.5-5.1)
[2024-10-15 22:36] LABS: Appearance,Urine Clear (Clear); Bacteria,Urine Rare /hpf; Bilirubin,Urine Negative (Negative); Blood,Urine Moderate (Negative); Color,Urine Colorless; Glucose,Urine (UA) 4+ (Negative); Ketones,Urine 1+ (Negative); Leukocyte Esterase,Urine Negative (Negative); Mucus,Urine Rare /hpf; Nitrite,Urine Negative (Negative); Protein,Urine 1+ (Negative); RBC,Urine <1 /hpf (0-5); Specific Gravity,Urine 1.016 (1.001-1.035); Squamous Epithelial Cell,Urine <1 /hpf (0-4); Urobilinogen,Urine <2.0 mg/dL (<2.0); WBC,Urine 2 /hpf (0-5)
--- NOTE | 2024-10-16 04:36 | P.CNPUL ---
History of Present Illness Consult date: 10/16/24 Requesting physician: Peter Beard Reason for consult: other (COVID-pneumonia) Chief complaint: Fall and generalized weakness History of present illness: Patient is a 79-year-old male with past medical history significant for hypertension, hyperlipidemia, diabetes mellitus, GERD, dementia, lower extremity DVT, among other things. Of note, patient recently had an ER visit on October 10, and was found to be positive for COVID. He was discharged home with direction to follow-up with his primary care provider Dr. Garnett. Unclear if the patient ever did follow-up with his PCP, he is a questionable historian. Has Aricept listed in his home medications. Patient did return to the emergency department last night. Apparently, he had a fall and could not get up. He has been generally weak. States his leg started shaking and gave out. Denies losing consciousness or syncopal event. Denies head trauma. He does take warfarin on outpatient basis, however, states he has missed several doses. His INR was subtherapeutic at 1.1 on arrival. ER workup included chest x-ray which shows coarse interstitial infiltrates bilaterally and a stable cardiac silhouette. NT proBNP was low at 148. CBC: WBC count 4.7, hemoglobin 16.9, platelets 129. INR was 1.1. CMP: Sodium 135, potassium 4.4, chloride 101, serum bicarb 20, BUN 30, creatinine 0.78, glucose 126. Lactate was 2.3 and is down to 1.2. Magnesium 2. LFTs unremarkable. Troponin 0.028, 0.036, and 0.031 respectively. NT proBNP was low. Patient is currently being evaluated in the emergency department. He is lying in bed on room air. He denies shortness of breath, sputum production, chest pain, fevers or chills. He does have an intermittent nonproductive cough. Has remained afebrile. He appears generally weak. There is lower extremity edema. He is receiving Lasix 40 mg twice daily. Current vitals: Afebrile, heart rate 75 bpm, blood pressure 132/79 mmHg, nontachypneic, SpO2 is 94% on room air. Review of Systems Constitutional: Reports fatigue, Reports poor appetite, Denies chills, Denies fever, Denies weight gain, Denies weight loss Ears, nose, mouth and throat: Reports nasal congestion, Reports post-nasal drip, Reports sore throat, Denies headache, Denies nasal discharge, Denies sinus pain, Denies sinus pressure Cardiovascular: Reports leg edema, Denies chest pain, Denies dyspnea on exertion, Denies lightheadedness, Denies orthopnea, Denies palpitations, Denies paroxysmal nocturnal dyspnea, Denies syncope Respiratory: Reports as per HPI Gastrointestinal: Reports diarrhea, Denies abdominal pain, Denies nausea, Denies vomiting Genitourinary: Denies dysuria Musculoskeletal: Reports muscle weakness Integumentary: Denies rash, Denies sores Neurological: Denies head injury, Denies headaches, Denies seizures, Denies syncope, Denies visual changes Psychiatric: Denies anxiety, Denies depression Past Medical History Past Medical History: Diabetes Mellitus, GERD/Reflux, Hyperlipidemia, Hypertension Additional Past Medical History / Comment(s): IDDM. EARLY ONSET DEMENTIA. History of Any Multi-Drug Resistant Organisms: None Reported Past Surgical History: Heart Catheterization With Stent, Orthopedic Surgery Additional Past Surgical History / Comment(s): UTO r/t AMS. KNEE REPLACEMENT ? carpal tunnel 06/2023 Past Anesthesia/Blood Transfusion Reactions: No Reported Reaction Date of Last Stent Placement:: UNKNOWN Past Psychological History: No Psychological Hx Reported Smoking Status: Former smoker Past Alcohol Use History: Rare Past Drug Use History: None Reported - Past Family History Mother Family Medical History: Unable to Obtain Medications and Allergies Home Medications Medication Instructions Recorded Confirmed Type Aspirin [Adult Low Dose Aspirin EC] 81 mg PO HS 06/29/23 10/10/24 History Atorvastatin Calcium [Lipitor] 40 mg PO HS 06/29/23 10/10/24 History Cholecalciferol [Vitamin D3 (25 50 mcg PO HS 06/29/23 10/10/24 History Mcg = 1000 Iu)] Donepezil [Aricept] 20 mg PO DAILY 06/29/23 10/10/24 History Dutasteride/Tamsulosin HCl [Yani 1 tab PO DAILY 06/29/23 10/10/24 History 0.5-0.4 mg Capsule] Empagliflozin [Jardiance] 25 mg PO DAILY 06/29/23 10/10/24 History Ginkgo Biloba [employer] Extract [Ginkgo 60 mg PO BID 06/29/23 10/10/24 History Biloba] INSULIN ASPART (NovoLOG) [NovoLOG See Protocol SQ AC-TID 06/29/23 10/10/24 History (formulary)] Insulin Glargine,Hum.rec.anlog 35 - 39 unit SQ HS 06/29/23 10/10/24 History [Lantus Solostar Pen] Metoprolol Succinate (ER) [Toprol 25 mg PO HS 06/29/23 10/10/24 History XL] Pantoprazole [Protonix] 40 mg PO DAILY 06/29/23 10/10/24 History Vit C/E/Zn/Coppr/Lutein/Zeaxan 1 tab PO BID 06/29/23 10/10/24 History [Preservision Areds 2 Softgel] Warfarin [Coumadin] 5 mg PO [id number]@209906/29/23 10/10/24 History ramipriL 10 mg PO BID 06/29/23 10/10/24 History Warfarin [Coumadin] 7.5 mg PO FR@209910/10/24 10/10/24 History Allergies Allergy/AdvReac Type Severity Reaction Status Date / Time morphine AdvReac Swelling Verified 10/15/24 19:01 Sulfa (Sulfonamide AdvReac Swelling Verified 10/15/24 19:01 Antibiotics) Physical Exam Vitals: Vital Signs Temp Pulse Resp BP Pulse Ox 10/16/24 04:08 72 18 10/16/24 02:20 75 18 132/79 94 L 10/16/24 00:00 68 20 102/63 92 L 10/15/24 23:00 73 16 104/86 94 L 10/15/24 18:54 98.9 F 92 18 159/80 95 Intake and Output 10/15/24 10/15/24 10/16/24 14:59 22:59 06:59 Other: Weight 104.326 kg GENERAL EXAM: Alert, 79-year-old white male, comfortable in no apparent distress. HEAD: Normocephalic and atraumatic EYES: Normal reaction of pupils, equal size. NOSE: Clear with pink turbinates. THROAT: No erythema or exudates. NECK: No masses, no JVD. CHEST: No chest wall deformity. LUNGS: Equal air entry with no crackles, wheeze, rhonchi or dullness. On room air. Occasional nonproductive cough. No conversational dyspnea or accessory muscle use while at rest CVS: S1 and S2 normal with no audible murmur, regular rhythm. No extra heart sounds ABDOMEN: No hepatosplenomegaly, active bowel sounds, no guarding or rigidity. SPINE: No scoliosis or deformity SKIN: No rashes CENTRAL NERVOUS SYSTEM: No focal deficits, tone is normal in all 4 extremities. EXTREMITIES: There is bilateral lower extremity 1-2+ pitting edema. No clubbing or cyanosis. Peripheral pulses are intact. Results - Laboratory Findings CBC and BMP: 10/15/24 19:35 10/15/24 19:35 PT/INR, D-dimer PT 12.4 sec (10.0-12.5) 10/15/24 19:35 INR 1.1 (<1.2) 10/15/24 19:35 Abnormal lab findings: Abnormal Labs 10/15/24 10/15/24 10/15/24 19:35 19:35 19:35 Plt Count 129 L Lymphocytes # 0.8 L Sodium 135 L Carbon Dioxide 20 L BUN 30 H Glucose 126 H Plasma Lactic Acid Rufino 2.3 H* AST 113 H Troponin I Total Protein 6.1 L Urine Protein Urine Glucose (UA) Urine Ketones Urine Blood Urine Bacteria Urine Mucus 10/15/24 10/15/24 22:06 23:31 Plt Count Lymphocytes # Sodium Carbon Dioxide BUN Glucose Plasma Lactic Acid Rufino AST Troponin I 0.036 H* Total Protein Urine Protein 1+ H Urine Glucose (UA) 4+ H Urine Ketones 1+ H Urine Blood Moderate H Urine Bacteria Rare H Urine Mucus Rare H - Diagnostic Findings Chest x-ray: image reviewed Assessment and Plan Assessment: Generalized weakness and falls COVID-19 pneumonia, originally tested COVID-positive by PCR on October 10, was reportedly started prior to this. Chest x-ray showing bilateral interstitial infiltrates. NT proBNP is low at 148. Bilateral lower extremity edema History of DVT Subtherapeutic INR at 1.1, patient states he has missed several doses of warfarin History of hypertension History of hyperlipidemia Diabetes mellitus GERD Memory disorder, patient takes Aricept on outpatient basis Obesity, with a BMI of 34 kg/m Plan: Patient's medications, labs, chest x-ray reviewed Likely an atypical viral/COVID-pneumonia, no focal infiltrates or consolidations. No indication for Decadron, as patient is on room air oxygen. Continue to support the patient clinically Robitussin DM as antitussive as needed As needed Tylenol for fever/pain Continue Lasix twice daily Obtain venous Doppler ultrasound of lower extremities to rule out DVT Check D-dimer Resume home medications once verified PT/OT consulted Continue follow, additional recommendations to follow I have personally seen and examined the patient, performed the documentation and the assessment and plan as written. Number of minutes spent on the visit:20 Time with Patient: Greater than 30
[2024-10-16 06:33] LABS: INR 1.2 (<1.2); Prothrombin Time 12.7 sec (10.0-12.5)
[2024-10-16] MEDS: ACETAMINOPHEN TAB 325 MG TAB PO PRN (06:58)
--- NOTE | 2024-10-16 08:11 | US ---
EXAMINATION TYPE: US venous doppler duplex LE BI DATE OF EXAM: 10/16/2024 7:55 AM COMPARISON: NONE CLINICAL INDICATION: Male, 79 years old with history of rule out DVT; edema, Pain TECHNIQUE: The lower extremity deep venous system is examined utilizing real time linear array sonog jag with graded compression, color doppler sonography, and spectral doppler. SIDE PERFORMED: Bilateral FINDINGS: VESSELS IMAGED: Common Femoral Vein Deep Femoral Vein Greater Saphenous Vein * Femoral Vein Popliteal Vein Small Saphenous Vein * Proximal Calf Veins (* superficial vessels) Right Leg: Negative for DVT, Color Doppler imaging shows patency of the vessels. Spectral waveforms are within normal limits. Left Leg: Negative for DVT, Color Doppler imaging shows patency of the vessels. Spectral waveforms a re within normal limits. IMPRESSION: 1. Bilateral lower extremity ultrasound negative for deep venous thrombosis [facility], , 10/16/2024 8:09 AM
--- NOTE | 2024-10-16 11:42 | P.CRDCN ---
History of Present Illness Consult date: 10/16/24 Consult reason: congestive heart failure History of present illness: This is a 79-year-old male patient of Dr. Gonzalez with past medical history of coronary artery disease, hypertension, mixed hyperlipidemia, diabetes mellitus type 2, dementia, lower extremity DVT on Coumadin. We have been asked to evaluate the patient for CHF. Patient states that he came into the hospital because he was weak he also had some shakes. He denies having any chest pain, no cough no wheezing. He states he is had chills. No nausea vomiting. He states he has had some blood in his urine and burning with urination. He has chronic lower extremity edema that is not any worse than normal. Noted documentation that patient had a fall at home when he was picking up laundry, no loss of consciousness. Patient has been off his Coumadin for the past week as his prescription ran out. Blood pressure 125/92, heart rate 80, pulse ox 96% on room air. Temperature max 100.9. Patient is status post 2 L of IV fluid, ibuprofen and Tylenol. Patient is seen today in the emergency center waiting for a bed on the cardiac stepdown unit. Patient had an ER visit on 10/10 at which time he tested positive for COVID. -EKG: Sinus rhythm with no acute ST changes. -Chest x-ray: Cardiomegaly, mild pulmonary vascular congestive changes. -Bilateral venous Doppler study is negative for DVT. -Laboratory studies: WBC 4.7, hemoglobin 16.9, platelet count 129. D-dimer 0.48. BUN 30, creatinine 0.78, sodium 135, potassium 4.4, troponins 0.028, 0.036 and 0.031. proBNP 148. Procalcitonin 0.15. INR 1.2. -Home cardiac medications: Aspirin 81 mg daily, atorvastatin 40 mg at bedtime, Jardiance 25 mg daily, Toprol XL 25 mg at bedtime, ramipril 10 mg twice daily, warfarin 5 mg Sunday through and 7.5 on Sunday. -Lexiscan Cardiolite stress test performed in the office on 02/16/2023 was nondiagnostic electrocardiographic stress testing. Probable normal myocardial perfusion imaging with fixed inferior wall defect and normal gated SPECT images. Findings are suggestive of soft tissue attenuation. No evidence of stress induced ischemia. -Echocardiogram performed in the office on 02/05/2023 revealed EF 55 to 60%, mild aortic regurgitation, mild mitral regurgitation, mild tricuspid regurgitation, PASP 37 mmHg. Review Of Systems: At the time of my exam: CONSTITUTIONAL: Denies fever reports chills. HEENT: Denies blurred vision, vision changes, or eye pain. Denies hemoptysis CARDIOVASCULAR: Denies chest pain. Denies orthopnea. Denies PND. Denies palpitations RESPIRATORY: Denies shortness of breath. GASTROINTESTINAL: Denies abdominal pain. Denies nausea or vomiting. HEMATOLOGIC: Reports blood in his urine. GENITOURINARY: Denies any blood in urine. SKIN: Denies puritis. Denies rash. Physical examination: Gen: This is a 79-year-old male in no acute distress VS: reviewed HEENT: Head is atraumatic, normocephalic. Pupils equal, round. Sclerae is anict zia. NECK: Supple. No JVD. LUNGS: Clear to auscultation. No wheezes or rhonchi. No intercostal r etractions. HEART: Regular rate and rhythm. 2/6 systolic murmur. ABDOMEN: Soft No tenderness. EXTREMITIES: Mild bilateral lower extremity edema. No calf tenderness. NEUROLOGICAL: Patient is awake, alert and oriented x3. Assessment: COVID-19 Generalized weakness with fall, no loss of consciousness Subtherapeutic INR due to noncompliance with Coumadin. Ran out of medication x 1 week. No evidence of heart failure Hypertension Mixed hyperlipidemia History of coronary artery disease Diabetes mellitus type 2 Dementia Lower extremity DVT on Coumadin Plan: Resume patient's home cardiac medications Obtain 2-D echocardiogram and Doppler study to assess cardiac structure and function Further recommendations to follow based upon clinical course Thank you kindly for this consultation. Nurse practitioner note has been reviewed, I agree with documented findings and plan of care. Patient was seen and examined. Past Medical History Past Medical History: Diabetes Mellitus, GERD/Reflux, Hyperlipidemia, Hypertension Additional Past Medical History / Comment(s): IDDM. EARLY ONSET DEMENTIA. History of Any Multi-Drug Resistant Organisms: None Reported Past Surgical History: Heart Catheterization With Stent, Orthopedic Surgery Additional Past Surgical History / Comment(s): UTO r/t AMS. KNEE REPLACEMENT ? carpal tunnel 06/2023 Past Anesthesia/Blood Transfusion Reactions: No Reported Reaction Date of Last Stent Placement:: UNKNOWN Past Psychological History: No Psychological Hx Reported Smoking Status: Former smoker Past Alcohol Use History: Rare Past Drug Use History: None Reported - Past Family History Mother Family Medical History: Unable to Obtain Medications and Allergies Home Medications Medication Instructions Recorded Confirmed Type Aspirin [Adult Low Dose Aspirin EC] 81 mg PO HS 06/29/23 10/16/24 History Atorvastatin Calcium [Lipitor] 40 mg PO HS 06/29/23 10/16/24 History Cholecalciferol [Vitamin D3 (25 50 mcg PO HS 06/29/23 10/16/24 History Mcg = 1000 Iu)] Donepezil [Aricept] 20 mg PO DAILY 06/29/23 10/16/24 History Dutasteride/Tamsulosin HCl [Yani 1 tab PO DAILY 06/29/23 10/16/24 History 0.5-0.4 mg Capsule] Empagliflozin [Jardiance] 25 mg PO DAILY 06/29/23 10/16/24 History Ginkgo Biloba [place] Extract [Ginkgo 60 mg PO BID 06/29/23 10/16/24 History Biloba] INSULIN ASPART (NovoLOG) [NovoLOG See Protocol SQ AC-TID 06/29/23 10/16/24 History (formulary)] Insulin Glargine,Hum.rec.anlog 35 - 39 unit SQ 06/29/23 10/16/24 History [Lantus Solostar Pen] Metoprolol Succinate (ER) [Toprol 25 mg PO HS 06/29/23 10/16/24 History XL] Pantoprazole [Protonix] 40 mg PO DAILY 06/29/23 10/16/24 History Vit C/E/Zn/Coppr/Lutein/Zeaxan 1 tab PO BID 06/29/23 10/16/24 History [Preservision Areds 2 Softgel] Warfarin [Coumadin] 5 mg PO SUMOTUWETHSA@2100 06/29/23 10/16/24 History ramipriL 10 mg PO BID 06/29/23 10/16/24 History Warfarin [Coumadin] 7.5 mg PO FR@2100 10/10/24 10/16/24 History Memantine [Namenda] 10 mg PO BID 10/16/24 10/16/24 History Allergies Allergy/AdvReac Type Severity Reaction Status Date / Time morphine Allergy Swelling Verified 10/16/24 09:45 Sulfa (Sulfonamide Allergy Swelling Verified 10/16/24 09:45 Antibiotics) Physical Exam Vitals: Vital Signs Temp Pulse Resp BP Pulse Ox 10/16/24 06:50 100.9 F H 10/16/24 06:11 80 18 125/92 96 10/16/24 04:08 72 18 10/16/24 02:20 75 18 132/79 94 L 10/16/24 00:00 68 20 102/63 92 L 10/15/24 23:00 73 16 104/86 94 L 10/15/24 18:54 98.9 F 92 18 159/80 95 Intake and Output 10/15/24 10/16/24 10/16/24 22:59 06:59 14:59 Other: Weight 104.326 kg Results 10/15/24 19:35 10/15/24 19:35 Cardiac Enzymes 10/15/24 10/15/24 10/15/24 Range/Units 19:35 19:35 23:31 AST 113 H (17-59) U/L Troponin I 0.028 0.036 H* (0.000-0.034) ng/mL 10/16/24 Range/Units 03:02 AST (17-59) U/L Troponin I 0.031 (0.000-0.034) ng/mL Coagulation 10/15/24 10/16/24 Range/Units 19:35 05:47 PT 12.4 12.7 H (10.0-12.5) sec APTT 22.6 (22.0-30.0) sec CBC 10/15/24 Range/Units 19:35 WBC 4.7 (3.8-10.6) k/uL RBC 5.66 (4.30-5.90) m/uL Hgb 16.9 (13.0-17.5) gm/dL Hct 50.3 (39.0-53.0) % Plt Count 129 L (150-450) k/uL Comprehensive Metabolic Panel 10/15/24 Range/Units 19:35 Sodium 135 L (137-145) mmol/L Potassium 4.4 (3.5-5.1) mmol/L Chloride 101 (98-107) mmol/L Carbon Dioxide 20 L (22-30) mmol/L BUN 30 H (9-20) mg/dL Creatinine 0.78 (0.66-1.25) mg/dL Glucose 126 H (74-99) mg/dL Calcium 8.5 (8.4-10.2) mg/dL AST 113 H (17-59) U/L ALT 46 (4-49) U/L Alkaline Phosphatase 87 (38-126) U/L Total Protein 6.1 L (6.3-8.2) g/dL Albumin 3.8 (3.5-5.0) g/dL Current Medications Generic Name Dose Route Start Last Admin Trade Name Freq PRN Reason Stop Dose Admin Acetaminophen 650 mg 10/16/24 04:28 10/16/24 06:58 Acetaminophen Tab 325 Mg Tab PO 650 mg Q6HR PRN Administration Fever and/ or Pain Furosemide 40 mg 10/15/24 21:00 10/15/24 20:33 Furosemide 10 Mg/Ml 4 Ml Vial IV 40 mg Q12HR SRINIVAS Administration Guaifenesin/Dextromethorphan 10 ml 10/16/24 04:28 Guaifenesin-Dm 100-10mg/5ml 10 Ml Cup PO Q6HR PRN Cough Miscellaneous Information 0 each 10/16/24 05:10 Warfarin Per Pharmacy MISCELLANE DIRECTED PRN protocol Warfarin Sodium 10 mg 10/16/24 18:00 Warfarin 10 Mg Tab PO 10/16/24 18:01 ONCE@1800 ONE Intake and Output 10/15/24 10/16/24 10/16/24 22:59 06:59 14:59 Other: Weight 104.326 kg 10/15/24 19:35 10/15/24 19:35
--- NOTE | 2024-10-16 14:07 | P.HPIM ---
History of Present Illness H&P Date: 10/16/24 Chief Complaint: Weakness, CHF, atypical pneumonia Patient is a 79-year-old male with insulin-dependent diabetes mellitus, GERD, hyperlipidemia, hypertension presented to the ER after having a fall earlier yesterday and patient was diagnosed with pneumonia around 1 week ago. Patient was seen at bedside. 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 He reported he sort of collapsed and had loss of balance but did not hit his head. Patient denied passing out or loss of consciousness during the fall. Patient denies any history of seizures. Per ER triage note, patient also on Coumadin but has not taken in over 1 week due to prescription being out. In addition, I did speak with patient's over the phone and she said that patient got COVID over [place]. Patient currently endorses a productive cough with yellow sputum. He feels like the cough is getting worse over the past week. Patient also reported noticing blood in his urine and is having burning sensation when he urinates. He has never had anything like this before. Diarrhea for the past week was also reported. Patient also endorses fever, runny nose, sore throat, chills. Denies nausea, vomiting, chest pain, shortness of breath, tingling or numbness in upper or lower extremities, lightheadedness, dizziness, melena/hematochezia. ED documentation reviewed. In the ED patient was treated with Tylenol 1000 mg p.o. x 1, ibuprofen 600 mg x 1, maintenance fluid of 130 cc an hour, a bolus of normal saline, warfarin 5 mg daily Vitals on admission temperature 100.9, pulse rate 80, respiratory rate 18, blood pressure 125/92, O2 sat 96% on room air EKG independently interpreted as sinus rhythm with ventricular rate of 84 bpm, QTc interval of 413 ms CXR shows cardiomegaly mild pulmonary vascular congestive changes Labs on admission show WBC 4.7, hemoglobin 16.9, hematocrit 50.3, platelet 129, PT 12.7, INR 1.2, PTT 22.6, D-dimer 0.48, sodium 135, potassium 4.4, chloride 101, carbon dioxide 20, BUN 30, creatinine 0.78, glucose 126, lactic acid 1.2, AST 113, troponin 0.036, BNP 148 UA shows 1+ for protein, 4+ glucose, 1+ ketones, moderate blood, negative nitrite, negative leukocyte esterase Review of systems: Pertinent positives and negatives as discussed in HPI, a complete review of systems was performed and all other systems are negative. PMH: Insulin-dependent diabetes mellitus, GERD, hyperlipidemia, hypertension PSH: Heart cath with stent, orthopedic surgery FMH: No pertinent family history Allergies: Morphine, sulfonamide antibiotics Social history: Tobacco: Former smoker Alcohol: Rare alcohol use Recreational drugs: No drug use Travel: No travel history Sick contacts: No sick contacts Physical examination: Vital signs reviewed General: nontoxic, no distress, appears at stated age Derm: warm, dry, intact Head: atraumatic, normocephalic, symmetric Eyes: anicteric sclera Mouth: no lip lesion, mucus membranes moist Cardiovascular: S1 S2 reg, no murmur Lungs: CTA bilateral, no rhonchi, no rales, no accessory muscle use Abdominal: soft, non-tender to palpation Extremities: No cyanosis, clubbing, or lower extremity swelling. Neuro: Alert, Oriented to time, person, place, Gross neurological examination did not reveal any focal deficits. Cranial nerves II to XII grossly intact. Bilateral upper and lower extremity muscle strength intact and sensation intact. Psych: well appearing, appropriate affect Assessment/Plan: 79-year-old male with insulin-dependent diabetes mellitus, GERD, hyperlipidemia, hypertension presented to the ER after having a fall earlier yesterday and patient was diagnosed with pneumonia around 1 week ago. Patient will be admitted to internal medicine service. Active: #. COVID-19 pneumonia #. Possible congestive heart failure #. Elevated troponin Patient was diagnosed with COVID 19 about a week ago during [facility] Chest x-ray shows cardiomegaly mild pulmonary vascular congestive changes Pulmonology recommended supportive therapy. No indications for Decadron as patient is currently on room air oxygen. Troponin 0.036, repeat 0.031 BNP 148 Cardiology plan to order echocardiogram Fall precautions Continue cardiac telemetry Consult PT/OT One-time dose of Lasix 20 mg IV Resume home cardiac medications Consult infectious disease #. Thrombocytopenia Platelet 129 Monitor morning CBC #. Elevated PT and INR PT 12.7, INR 1.2 Restarted warfarin 10 mg x 1 #. Hyponatremia Sodium 135 Monitor morning CMP Hold off on maintenance fluids as patient is currently receiving Lasix #. Hyperglycemia, history of insulin-dependent diabetes mellitus Glucose 126 Initiate low-dose sliding scale insulin Hold home diabetic medications #. Lactic acidosis, resolved Initial 2.3, repeat 1.2 #. Elevated AST AST 113, ALT 46, alkaline phosphatase 87 Monitor morning CMP Chronic: #. GERD Restart Protonix 40 mg daily #. Hyperlipidemia Restart atorvastatin 40 mg at bedtime #. Hypertension Restart ramipril 10 mg twice daily, metoprolol succinate 25 mg at bedtime F: No restrictions E: Replete as needed N: Heart healthy diet A: EMS DVT prophylaxis: Coumadin The patient is admitted with an anticipated more than 2 midnight stay for evaluation of pneumonia, suspected heart failure CODE STATUS: Full code Discussed with: Patient Anticipated discharge place: Home attestation: I have personally seen and examined the patient with Resident, reviewed the documentation and participated and agree with the assessment and p fransisca as written. Cong Campo MD Past Medical History Past Medical History: Diabetes Mellitus, GERD/Reflux, Hyperlipidemia, Hypertension Additional Past Medical History / Comment(s): IDDM. EARLY ONSET DEMENTIA. History of Any Multi-Drug Resistant Organisms: None Reported Past Surgical History: Heart Catheterization With Stent, Orthopedic Surgery Additional Past Surgical History / Comment(s): UTO r/t AMS. KNEE REPLACEMENT ? carpal tunnel 06/2023 Past Anesthesia/Blood Transfusion Reactions: No Reported Reaction Date of Last Stent Placement:: UNKNOWN Past Psychological History: No Psychological Hx Reported Smoking Status: Former smoker Past Alcohol Use History: Rare Past Drug Use History: None Reported - Past Family History Mother Family Medical History: Unable to Obtain Medications and Allergies Home Medications Medication Instructions Recorded Confirmed Type Aspirin [Adult Low Dose Aspirin EC] 81 mg PO HS 06/29/23 10/16/24 History Atorvastatin Calcium [Lipitor] 40 mg PO HS 06/29/23 10/16/24 History Cholecalciferol [Vitamin D3 (25 50 mcg PO HS 06/29/23 10/16/24 History Mcg = 1000 Iu)] Donepezil [Aricept] 20 mg PO DAILY 06/29/23 10/16/24 History Dutasteride/Tamsulosin HCl [Yani 1 tab PO DAILY 06/29/23 10/16/24 History 0.5-0.4 mg Capsule] Empagliflozin [Jardiance] 25 mg PO DAILY 06/29/23 10/16/24 History Ginkgo Biloba [place] Extract [Ginkgo 60 mg PO BID 06/29/23 10/16/24 History Biloba] INSULIN ASPART (NovoLOG) [NovoLOG See Protocol SQ AC-TID 06/29/23 10/16/24 History (formulary)] Insulin Glargine,Hum.rec.anlog 35 - 39 unit SQ 06/29/23 10/16/24 History [Lantus Solostar Pen] Metoprolol Succinate (ER) [Toprol 25 mg PO HS 06/29/23 10/16/24 History XL] Pantoprazole [Protonix] 40 mg PO DAILY 06/29/23 10/16/24 History Vit C/E/Zn/Coppr/Lutein/Zeaxan 1 tab PO BID 06/29/23 10/16/24 History [Preservision Areds 2 Softgel] Warfarin [Coumadin] 5 mg PO SUMOTUWETHSA@2100 06/29/23 10/16/24 History ramipriL 10 mg PO BID 06/29/23 10/16/24 History Warfarin [Coumadin] 7.5 mg PO FR@209910/10/24 10/16/24 History Memantine [Namenda] 10 mg PO BID 10/16/24 10/16/24 History Allergies Allergy/AdvReac Type Severity Reaction Status Date / Time morphine Allergy Swelling Verified 10/16/24 09:45 Sulfa (Sulfonamide Allergy Swelling Verified 10/16/24 09:45 Antibiotics) Physical Exam Vitals: Vital Signs Temp Pulse Resp BP Pulse Ox 10/16/24 06:50 100.9 F H 10/16/24 06:11 80 18 125/92 96 10/16/24 04:08 72 18 10/16/24 02:20 75 18 132/79 94 L 10/16/24 00:00 68 20 102/63 92 L 10/15/24 23:00 73 16 104/86 94 L 10/15/24 18:54 98.9 F 92 18 159/80 95 Intake and Output 10/15/24 10/16/24 10/16/24 22:59 06:59 14:59 Other: Weight 104.326 kg Results CBC & Chem 7: 10/19/24 07:41 10/20/24 07:38 Labs: Abnormal Lab Results - Last 24 Hours (Table) 01/11/0810/15/24 10/15/24 Range/Units 19:35 19:35 19:35 Plt Count 129 L (150-450) k/uL Lymphocytes # 0.8 L (1.0-4.8) k/uL PT (10.0-12.5) sec INR (<1.2) Sodium 135 L (137-145) mmol/L Carbon Dioxide 20 L (22-30) mmol/L BUN 30 H (9-20) mg/dL Glucose 126 H (74-99) mg/dL Plasma Lactic Acid Rufino 2.3 H* (0.7-2.0) mmol/L AST 113 H (17-59) U/L Troponin I (0.000-0.034) ng/mL Total Protein 6.1 L (6.3-8.2) g/dL Urine Protein (Negative) Urine Glucose (UA) (Negative) Urine Ketones (Negative) Urine Blood (Negative) Urine Bacteria (None) /hpf Urine Mucus (None) /hpf 10/15/24 10/15/24 10/16/24 Range/Units 22:06 23:31 05:47 Plt Count (150-450) k/uL Lymphocytes # (1.0-4.8) k/uL PT 12.7 H (10.0-12.5) sec INR 1.2 H (<1.2) Sodium (137-145) mmol/L Carbon Dioxide (22-30) mmol/L BUN (9-20) mg/dL Glucose (74-99) mg/dL Plasma Lactic Acid Rufino (0.7-2.0) mmol/L AST (17-59) U/L Troponin I 0.036 H* (0.000-0.034) ng/mL Total Protein (6.3-8.2) g/dL Urine Protein 1+ H (Negative) Urine Glucose (UA) 4+ H (Negative) Urine Ketones 1+ H (Negative) Urine Blood Moderate H (Negative) Urine Bacteria Rare H (None) /hpf Urine Mucus Rare H (None) /hpf
[2024-10-16] MEDS: FUROSEMIDE 10 MG/ML 2 ML VIAL IV STA (15:43)
[2024-10-16 15:51] LABS: Glucose,Whole Blood 250 mg/dL (70-110)
[2024-10-16] MEDS ORDERED: WARFARIN 5 MG TAB PO SCH (18:00)
[2024-10-16] MEDS: INSULIN ASPART (NovoLOG) 100 UNIT/ML VIAL SQ SCH (18:34)
[2024-10-16] MEDS: WARFARIN 10 MG TAB PO ONE (18:49)
[2024-10-16 20:09] LABS: Glucose,Whole Blood 210 mg/dL (70-110)
[2024-10-16] MEDS: ATORVASTATIN 40 MG TAB PO SCH (20:28)
[2024-10-16] MEDS: METOPROLOL SUCCINATE (ER) 25 MG TAB.ER.24H PO SCH (20:28)
[2024-10-16] MEDS: guaiFENesin-DM 100-10MG/5ML 10 ML CUP PO PRN (20:29)
[2024-10-17 06:12] LABS: Glucose,Whole Blood 156 mg/dL (70-110)
[2024-10-17] MEDS: PANTOPRAZOLE 40 MG TABLET PO SCH (06:19)
[2024-10-17 06:58] LABS: Basophils % (A) 1 %; Eosinophils % (A) 0 %; HCT 49.9 % (39.0-53.0); HGB 17.2 gm/dL (13.0-17.5); Lymphocytes # (A) 1.1 k/uL (1.0-4.8); Lymphocytes % (A) 19 %; MCH 30.5 pg (25.0-35.0); MCHC 34.4 g/dL (31.0-37.0); MCV 88.8 fL (80.0-100.0); Monocytes # (A) 0.5 k/uL (0-1.0); Monocytes % (A) 9 %; Neutrophils # (A) 3.9 k/uL (1.3-7.7); Neutrophils % (A) 69 %; Platelet Count 128 k/uL (150-450); RBC 5.62 m/uL (4.30-5.90); RDW 14.2 % (11.5-15.5); WBC 5.7 k/uL (3.8-10.6)
[2024-10-17 07:07] LABS: INR 1.2 (<1.2); Prothrombin Time 13.2 sec (10.0-12.5)
[2024-10-17 07:09] LABS: ALT 54 U/L (4-49); AST 114 U/L (17-59); African American GFR (CKD) 75 (>60 ml/min/1.73 sqM); Albumin 3.6 g/dL (3.5-5.0); Alkaline Phosphatase 84 U/L (38-126); Anion Gap 9 mmol/L; Blood Urea Nitrogen 33 mg/dL (9-20); Calcium 8.2 mg/dL (8.4-10.2); Carbon Dioxide 28 mmol/L (22-30); Chloride 100 mmol/L (98-107); Glucose 150 mg/dL (74-99); Non-African American GFR(CKD) 65 (>60 ml/min/1.73 sqM); Potassium 3.6 mmol/L (3.5-5.1); Sodium 137 mmol/L (137-145); Total Bilirubin 1.1 mg/dL (0.2-1.3)
--- NOTE | 2024-10-17 07:39 | CA ---
Transthoracic Echo Report Name: Gelacio Montoya Age: 79 Gender: M : 1945 Exam Date: 10/16/2024 14:19 Exam Location: [facility] Ht (in): 69 Wt (lb): 230 Ordering Physician: Peter Beard DO Attending/Referring Phys: [id number], Kisha Business Office Specialist Lorraine Ojeda RDCS Procedure CPT: Indications: Heart failure Cardiac Hx: Technical Quality: Very technically difficult study Contrast 1: Definity Total Dose (mL): 2 Contrast 2: Total Dose (mL): MEASUREMENTS (Male / Female) Normal Values 2D ECHO LV Diastolic Diameter PLAX 5.6 cm 4.2 - 5.9 / 3.9 - 5.3 cm LV Systolic Diameter PLAX 3.6 cm IVS Diastolic Thickness 1.3 cm 0.6 - 1.0 / 0.6 - 0.9 cm LVPW Diastolic Thickness 1.5 cm 0.6 - 1.0 / 0.6 - 0.9 cm LV Relative Wall Thickness 0.5 RV Internal Dim ED PLAX 3.6 cm LA Systolic Diameter LX 4.3 cm 3.0 - 4.0 / 2.7 - 3.8 cm LV Diastolic Volume MOD BP 46.5 cm??? 67 - 155 / 56 - 104 cm??? LV Systolic Volume MOD BP 27.1 cm??? 22 - 58 / 19 - 49 cm??? LV Ejection Fraction MOD BP 41.8 % >= 55 % LV Cardiac Index MOD BP 729.9 cm???/min???m??? LV Diastolic Volume MOD 4C 46.1 cm??? LV Systolic Volume MOD 4C 17.6 cm??? LV Ejection Fraction MOD 4C 61.7 % LV Cardiac Index MOD 4C 1069.1 cm???/min???m??? LV Diastolic Length 4C 6.9 cm LV Systolic Length 4C 5.9 cm LV Diastolic Volume MOD 2C 52.0 cm??? LV Systolic Volume MOD 2C 26.3 cm??? LV Ejection Fraction MOD 2C 49.3 % LV Cardiac Index MOD 2C 962.5 cm???/min???m??? LV Diastolic Length 2C 6.9 cm LV Systolic Length 2C 6.5 cm DOPPLER AV Peak Velocity 101.6 cm/s AV Peak Gradient 4.1 mmHg Mitral E Point Velocity 71.0 cm/s Mitral A Point Velocity 99.5 cm/s Mitral E to A Ratio 0.7 MV Deceleration Time 235.3 ms FINDINGS Left Ventricle Left ventricular ejection fraction is estimated at 55-60 %. Left ventricular cavity size normal. Mildly increased septal wall thickness. Moderately decreased left ventricular ejection fraction. Right Ventricle Mild right ventricular dilatation. Right Atrium Right atrium not well visualized. Left Atrium Mildly increased left atrial diameter. Mitral Valve Mitral valve not well visualized. Aortic Valve Aortic valve not well visualized. Tricuspid Valve Tricuspid valve not well visualized. Pulmonic Valve Pulmonic valve not well visualized. Pericardium Trace pericardial effusion. Aorta Aortic root and proximal ascending aorta not well visualized. CONCLUSIONS Extremely difficult study for interpretation Poorly visualized endocardium and intracardiac valves Normal LV systolic function Trace pericardial effusion Previewed by: Dr. Saad Cunningham MD (Electronically Signed) Final Date: 17 October 2024 07:38
[2024-10-17] MEDS: lisinopriL 20 MG TAB PO SCH (07:51)
--- NOTE | 2024-10-17 08:09 | P.CONS ---
History of Present Illness - Reason for Consult Consult date: 10/16/24 Evaluate for remdesivir/COVID Requesting physician: Mehdi Cardona - Chief Complaint Weakness and fall x 1 day - History of Present Illness Patient is a 79-year-old male with a past medical history significant for diabetes mellitus hypertension hyperlipidemia reflux presenting to the hospital for evaluation of weakness apparently the patient did have a fall and could not get up patient was previously evaluated in the ER on October 10, 2024 and tested positive for COVID-19 he was supposed to follow-up with his PCP Dr. Rao however it is not clear if has been evaluated by his PCP or has been treated with any medication for the same now presenting with weakness and fall patient denies losing consciousness or any head injury patient was noticed to be running a low-grade fever of 100.9 and was also mildly hypoxic requiring supplemental oxygen currently on 2 L nasal cannula oxygen patient himself not a very good historian to tell me if he has any cough or sputum production no vomiting or diarrhea has been reported patient did have a normal white count of 4.7 with lymphopenia creatinine 0.78 electrolytes has been normal liver enzymes normal procalcitonin 0.15 UA has been negative patient did have a chest x-ray cardiomegaly mild pulmonary vascular congestion venous Doppler negative for DVT patient has been admitted to hospital infectious disease was consulted regarding need for the remdesivir most information has been stating from review the chart and the patient was evaluated today stool was noted to have increasing swelling to the lower extremity with some erythema Review of Systems Positive points has been mentioned in HPI complete review could not be obtained because of his underlying mental status Past Medical History Past Medical History: Diabetes Mellitus, GERD/Reflux, Hyperlipidemia, Hypertension Additional Past Medical History / Comment(s): IDDM. EARLY ONSET DEMENTIA. History of Any Multi-Drug Resistant Organisms: None Reported Past Surgical History: Heart Catheterization With Stent, Orthopedic Surgery Additional Past Surgical History / Comment(s): UTO r/t AMS. KNEE REPLACEMENT ? carpal tunnel 06/2023 Past Anesthesia/Blood Transfusion Reactions: No Reported Reaction Date of Last Stent Placement:: UNKNOWN Past Psychological History: No Psychological Hx Reported Smoking Status: Former smoker Past Alcohol Use History: Rare Past Drug Use History: None Reported - Past Family History Mother Family Medical History: Unable to Obtain Medications and Allergies Home Medications Medication Instructions Recorded Confirmed Type Aspirin [Adult Low Dose Aspirin EC] 81 mg PO HS 06/29/23 10/16/24 History Atorvastatin Calcium [Lipitor] 40 mg PO HS 06/29/23 10/16/24 History Cholecalciferol [Vitamin D3 (25 50 mcg PO HS 06/29/23 10/16/24 History Mcg = 1000 Iu)] Donepezil [Aricept] 20 mg PO DAILY 06/29/23 10/16/24 History Dutasteride/Tamsulosin HCl [Yani 1 tab PO DAILY 06/29/23 10/16/24 History 0.5-0.4 mg Capsule] Empagliflozin [Jardiance] 25 mg PO DAILY 06/29/23 10/16/24 History Ginkgo Biloba [place] Extract [Ginkgo 60 mg PO BID 06/29/23 10/16/24 History Biloba] INSULIN ASPART (NovoLOG) [NovoLOG See Protocol SQ AC-TID 06/29/23 10/16/24 History (formulary)] Insulin Glargine,Hum.rec.anlog 35 - 39 unit SQ 06/29/23 10/16/24 History [Lantus Solostar Pen] Metoprolol Succinate (ER) [Toprol 25 mg PO HS 06/29/23 10/16/24 History XL] Pantoprazole [Protonix] 40 mg PO DAILY 06/29/23 10/16/24 History Vit C/E/Zn/Coppr/Lutein/Zeaxan 1 tab PO BID 06/29/23 10/16/24 History [Preservision Areds 2 Softgel] Warfarin [Coumadin] 5 mg PO SUMOTUWETHSA@209906/29/23 10/16/24 History ramipriL 10 mg PO BID 06/29/23 10/16/24 History Warfarin [Coumadin] 7.5 mg PO FR@209910/10/24 10/16/24 History Memantine [Namenda] 10 mg PO BID 10/16/24 10/16/24 History Allergies Allergy/AdvReac Type Severity Reaction Status Date / Time morphine Allergy Swelling Verified 10/16/24 09:45 Sulfa (Sulfonamide Allergy Swelling Verified 10/16/24 09:45 Antibiotics) Physical Exam Vitals: Vital Signs Temp Pulse Resp BP Pulse Ox 10/16/24 12:00 92 33 H 125/74 94 L 10/16/24 11:20 100.2 F H 95 22 125/74 91 L 10/16/24 06:50 100.9 F H 10/16/24 06:11 80 18 125/92 96 10/16/24 04:08 72 18 10/16/24 02:20 75 18 132/79 94 L 10/16/24 00:00 68 20 102/63 92 L 10/15/24 23:00 73 16 104/86 94 L 10/15/24 18:54 98.9 F 92 18 159/80 95 Intake and Output 10/15/24 10/16/24 10/16/24 22:59 06:59 14:59 Other: Weight 104.326 kg GENERAL DESCRIPTION: Elderly male lying in bed, no distress. No tachypnea or accessory muscle of respiration use. HEENT: Shows Pallor , no scleral icterus. Oral mucous membrane is dry. NECK: Trachea central, no thyromegaly. LUNGS: Unlabored breathing. Decreased breath sound the base HEART: S1, S2, regular rate and rhythm. No loud murmur ABDOMEN: Soft, no tenderness , EXTREMITIES: Diffuse swelling to bilateral extremity some redness slightly warm to touch SKIN: No rash, no masses palpable. NEUROLOGICAL: The patient is lethargic but arousable mood and affect normal. Results CBC & Chem 7: 10/17/24 06:34 10/17/24 06:34 Labs: Abnormal Lab Results - Last 24 Hours (Table) 10/15/24 10/15/24 10/15/24 Range/Units 19:35 19:35 19:35 Plt Count 129 L (150-450) k/uL Lymphocytes # 0.8 L (1.0-4.8) k/uL PT (10.0-12.5) sec INR (<1.2) Sodium 135 L (137-145) mmol/L Carbon Dioxide 20 L (22-30) mmol/L BUN 30 H (9-20) mg/dL Glucose 126 H (74-99) mg/dL Plasma Lactic Acid Rufino 2.3 H* (0.7-2.0) mmol/L AST 113 H (17-59) U/L Troponin I (0.000-0.034) ng/mL Total Protein 6.1 L (6.3-8.2) g/dL Urine Protein (Negative) Urine Glucose (UA) (Negative) Urine Ketones (Negative) Urine Blood (Negative) Urine Bacteria (None) /hpf Urine Mucus (None) /hpf 10/15/24 10/15/24 10/16/24 Range/Units 22:06 23:31 05:47 Plt Count (150-450) k/uL Lymphocytes # (1.0-4.8) k/uL PT 12.7 H (10.0-12.5) sec INR 1.2 H (<1.2) Sodium (137-145) mmol/L Carbon Dioxide (22-30) mmol/L BUN (9-20) mg/dL Glucose (74-99) mg/dL Plasma Lactic Acid Rufino (0.7-2.0) mmol/L AST (17-59) U/L Troponin I 0.036 H* (0.000-0.034) ng/mL Total Protein (6.3-8.2) g/dL Urine Protein 1+ H (Negative) Urine Glucose (UA) 4+ H (Negative) Urine Ketones 1+ H (Negative) Urine Blood Moderate H (Negative) Urine Bacteria Rare H (None) /hpf Urine Mucus Rare H (None) /hpf Assessment and Plan (1) Bilateral lower leg cellulitis Current Visit: Yes Status: Acute Code(s): L03.116 - CELLULITIS OF LEFT LOWER LIMB; L03.115 - CELLULITIS OF RIGHT LOWER LIMB SNOMED Code(s): 039078835 (2) Allergy to sulfa drugs Current Visit: Yes Status: Acute Code(s): Z88.2 - ALLERGY STATUS TO SULFONAMIDES SNOMED Code(s): 88396291 (3) COVID-19 Current Visit: Yes Status: Acute Code(s): U07.1 - COVID-19 SNOMED Code(s): 191095071 Plan: 1patient is a hospitalized weakness and fall and this patient has been initially diagnosed with the COVID-19 on October 10 symptom has been going on for more than 7 days and would not qualify for remdesivir the patient clinical features are more of a fluid overload CHF with increasing swelling to lower extremity some redness as well as a chest x-ray suggestive of pulmonary vascular congestion rather than the infiltrate suggestive of COVID-19 pneumonia and the patient did have a normal procalcitonin will make secondary bacterial pneumonia to be less likely. 2patient did have diffuse swelling lower extremity Doppler has been negative for DVT legs are warm and red to touch underlying cellulitis bilateral excluded 3-we will start the patient on cefazolin 2 g every 8 hours We will follow on clinical condition and cultures to further adjust medication if needed Thank you for this consultation we will follow the patient along with you Dictation was produced using [employer] dictation software. please excuse any grammatical, word or spelling errors. Time with Patient: Greater than 30
[2024-10-17] MEDS: DAPAGLIFLOZIN PROPANEDIOL 10 MG TABLET PO SCH (10:14)
[2024-10-17 11:33] LABS: Glucose,Whole Blood 243 mg/dL (70-110)
--- NOTE | 2024-10-17 13:04 | P.PN ---
Subjective Progress Note Date: 10/17/24 Principal diagnosis: Reason for follow-up is fever/COVID possible cellulitis Patient is a 79-year-old male with a past medical history significant for diabetes mellitus hypertension hyperlipidemia reflux presenting to the hospital for evaluation of weakness apparently the patient did have a fall and could not get up and apparently has been diagnosed with COVID-19 on October 10, 2024, patient did tested positive for COVID-19 did have mild hypoxemia chest x- ray was mostly CHF pattern and did have swelling to the leg and concern for cellulitis Doppler was negative. On today's evaluation that is 10/17/2024, the patient did have improvement in his fever pattern with a temperature of 100.2 F this morning, patient is currently on 2 L nasal cannula oxygen patient is more awake alert mention feeling better, denies any chest pain or worsening cough no vomiting or pain to the lower extremity. Patient white count is 5.7 creatinine is 1.10 procalcitonin 0.15 Objective - Vital Signs Vital signs: Vital Signs Temp 99.9 F H 10/17/24 12:03 Pulse 86 10/17/24 12:03 Resp 14 10/17/24 12:03 BP 141/78 10/17/24 12:03 Pulse Ox 94 L 10/17/24 12:03 FiO2 Intake & Output 10/16/24 10/17/24 10/17/24 18:59 06:59 18:59 Intake Total 180 480 Output Total 1670 2200 800 Balance -1490 -2200 -320 Weight 104.326 kg 102.5 kg Intake: Oral 180 480 Output: Urine 1670 2200 800 Other: Voiding Method External Catheter # Bowel Movements 1 - Exam GENERAL DESCRIPTION: An elderly male lying in bed in no distress RESPIRATORY SYSTEM: Unlabored breathing , decreased breath sounds at bases HEART: S1 S2 regular rate and rhythm , ABDOMEN: Soft , no tenderness EXTREMITIES: Lower extremity swelling redness has decreased - Labs CBC & Chem 7: 10/17/24 06:34 10/17/24 06:34 Labs: Abnormal Lab Results - Last 24 Hours (Table) 10/16/24 10/16/24 10/17/24 Range/Units 15:49 20:08 06:11 Plt Count (150-450) k/uL PT (10.0-12.5) sec INR (<1.2) BUN (9-20) mg/dL Glucose (74-99) mg/dL POC Glucose (mg/dL) 250 H 210 H 156 H (70-110) mg/dL Calcium (8.4-10.2) mg/dL AST (17-59) U/L ALT (4-49) U/L Total Protein (6.3-8.2) g/dL 10/17/24 10/17/24 10/17/24 Range/Units 06:34 06:34 06:34 Plt Count 128 L (150-450) k/uL PT 13.2 H (10.0-12.5) sec INR 1.2 H (<1.2) BUN 33 H (9-20) mg/dL Glucose 150 H (74-99) mg/dL POC Glucose (mg/dL) (70-110) mg/dL Calcium 8.2 L (8.4-10.2) mg/dL AST 114 H (17-59) U/L ALT 54 H (4-49) U/L Total Protein 6.0 L (6.3-8.2) g/dL 10/17/24 Range/Units 11:32 Plt Count (150-450) k/uL PT (10.0-12.5) sec INR (<1.2) BUN (9-20) mg/dL Glucose (74-99) mg/dL POC Glucose (mg/dL) 243 H (70-110) mg/dL Calcium (8.4-10.2) mg/dL AST (17-59) U/L ALT (4-49) U/L Total Protein (6.3-8.2) g/dL Assessment and Plan (1) Bilateral lower leg cellulitis Current Visit: Yes Status: Acute Code(s): L03.116 - CELLULITIS OF LEFT LOWER LIMB; L03.115 - CELLULITIS OF RIGHT LOWER LIMB SNOMED Code(s): 106534733 (2) Allergy to sulfa drugs Current Visit: Yes Status: Acute Code(s): Z88.2 - ALLERGY STATUS TO SULFONAMIDES SNOMED Code(s): 51502781 (3) COVID-19 Current Visit: Yes Status: Acute Code(s): U07.1 - COVID-19 SNOMED Code(s): 953786703 Plan: 1patient is a hospitalized weakness and fall and this patient has been init ially diagnosed with the COVID-19 on October 10 symptom has been going on for more than 7 days and would not qualify for remdesivir the patient clinical features are more of a fluid overload CHF with increasing swelling to lower extremity some redness as well as a chest x-ray suggestive of pulmonary vascular congestion rather than the infiltrate suggestive of COVID-19 pneumonia and the patient did have a normal procalcitonin will make secondary bacterial pneumonia to be less likely. 2patient did have diffuse swelling lower extremity Doppler has been negative for DVT legs are warm and red to touch underlying cellulitis bilateral excluded 3-patient did have improvement in his fever pattern, to continue with cefazolin 2 g every 8 hours and monitor clinical course closely Dictation was produced using [employer] dictation software. please excuse any grammatical, word or spelling errors.
--- NOTE | 2024-10-17 14:41 | P.PN ---
Subjective Progress Note Date: 10/17/24 Consult reason: congestive heart failure History of present illness: This is a 79-year-old male patient of Dr. Gonzalez with past medical history of coronary artery disease, hypertension, mixed hyperlipidemia, diabetes mellitus type 2, dementia, lower extremity DVT on Coumadin. We have been asked to evaluate the patient for CHF. Patient states that he came into the hospital because he was weak he also had some shakes. He denies having any chest pain, no cough no wheezing. He states he is had chills. No nausea vomiting. He states he has had some blood in his urine and burning with urination. He has chronic lower extremity edema that is not any worse than normal. Noted documentation that patient had a fall at home when he was picking up laundry, no loss of consciousness. Patient has been off his Coumadin for the past week as his prescription ran out. Blood pressure 125/92, heart rate 80, pulse ox 96% on room air. Temperature max 100.9. Patient is status post 2 L of IV fluid, ibuprofen and Tylenol. Patient is seen today in the emergency center waiting for a bed on the cardiac stepdown unit. Patient had an ER visit on 10/10 at [facility] time he tested positive for COVID. -EKG: Sinus rhythm with no acute ST changes. -Chest x-ray: Cardiomegaly, mild pulmonary vascular congestive changes. -Bilateral venous Doppler study is negative for DVT. -Laboratory studies: WBC 4.7, hemoglobin 16.9, platelet count 129. D-dimer 0.48. BUN 30, creatinine 0.78, sodium 135, potassium 4.4, troponins 0.028, 0.036 and 0.031. proBNP 148. Procalcitonin 0.15. INR 1.2. -Home cardiac medications: Aspirin 81 mg daily, atorvastatin 40 mg at bedtime, Jardiance 25 mg daily, Toprol XL 25 mg at bedtime, ramipril 10 mg twice daily, warfarin 5 mg Sunday through and 7.5 on Sunday. -Lexiscan Cardiolite stress test performed in the office on 02/16/2023 was nondiagnostic electrocardiographic stress testing. Probable normal myocardial perfusion imaging with fixed inferior wall defect and normal gated SPECT images. Findings are suggestive of soft tissue attenuation. No evidence of stress induced ischemia. -Echocardiogram performed in the office on 02/05/2023 revealed EF 55 to 60%, mild aortic regurgitation, mild mitral regurgitation, mild tricuspid regurgitation, PASP 37 mmHg. 10/17/2024 Patient seen and examined. Patient has been febrile with temperature max 101.5. Heart rate 81, pulse ox 93% on 2 L nasal cannula, blood pressure 158/76. Repeat blood work reveals hemoglobin 17.2. INR 1.2. Sodium 137, potassium 3.6, BUN 33 creatinine 1.1. Echocardiogram reveals EF of 55 to 60%. Patient is currently on IV Lasix 40 mg every 12 hours. Physical examination: Gen: This is a 79-year-old male in no acute distress VS: reviewed HEENT: Head is atraumatic, normocephalic. Pupils equal, round. Sclerae is anicteric. NECK: Supple. No JVD. LUNGS: Clear to auscultation. No wheezes or rhonchi. No intercostal retractions. HEART: Regular rate and rhythm. 2/6 systolic murmur. ABDOMEN: Soft No tenderness. EXTREMITIES: Mild bilateral lower extremity edema. No calf tenderness. NEUROLOGICAL: Patient is awake, alert and oriented x3. Assessment: COVID-19 Generalized weakness with fall, no loss of consciousness Subtherapeutic INR due to noncompliance with Coumadin. Ran out of medication x 1 week. No evidence of heart failure Hypertension Mixed hyperlipidemia History of coronary artery disease Diabetes mellitus type 2 Dementia Lower extremity DVT on Coumadin Plan: Continue patient's home cardiac medications Pharmacy is dosing Coumadin Transition IV Lasix to oral 40 mg daily Add Farxiga 10 mg daily No further cardiac workup at this time. Cardiology will sign off and follow on an as-needed basis. Please reconsult for any new concerns. Nurse practitioner note has been reviewed, I agree with documented findings and plan of care. Patient was seen and examined. Objective - Vital Signs Vital signs: Vital Signs Temp 99.9 F H 10/17/24 12:03 Pulse 86 10/17/24 12:03 Resp 14 10/17/24 12:03 BP 141/78 10/17/24 12:03 Pulse Ox 94 L 10/17/24 12:03 FiO2 Intake & Output 10/16/24 10/17/24 10/17/24 18:59 06:59 18:59 Intake Total 180 720 Output Total 1670 2200 800 Balance -1490 -2200 -80 Weight 104.326 kg 102.5 kg 102.5 kg Intake: Oral 180 720 Output: Urine 1670 2200 800 Other: Voiding Method External Catheter # Bowel Movements 1 - Labs CBC & Chem 7: 10/17/24 06:34 10/17/24 06:34 Labs: Abnormal Lab Results - Last 24 Hours (Table) 10/16/24 10/16/24 10/17/24 Range/Units 15:49 20:08 06:11 Plt Count (150-450) k/uL PT (10.0-12.5) sec INR (<1.2) BUN (9-20) mg/dL Glucose (74-99) mg/dL POC Glucose (mg/dL) 250 H 210 H 156 H (70-110) mg/dL Calcium (8.4-10.2) mg/dL AST (17-59) U/L ALT (4-49) U/L Total Protein (6.3-8.2) g/dL 10/17/24 10/17/24 10/17/24 Range/Units 06:34 06:34 06:34 Plt Count 128 L (150-450) k/uL PT 13.2 H (10.0-12.5) sec INR 1.2 H (<1.2) BUN 33 H (9-20) mg/dL Glucose 150 H (74-99) mg/dL POC Glucose (mg/dL) (70-110) mg/dL Calcium 8.2 L (8.4-10.2) mg/dL AST 114 H (17-59) U/L ALT 54 H (4-49) U/L Total Protein 6.0 L (6.3-8.2) g/dL 10/17/24 Range/Units 11:32 Plt Count (150-450) k/uL PT (10.0-12.5) sec INR (<1.2) BUN (9-20) mg/dL Glucose (74-99) mg/dL POC Glucose (mg/dL) 243 H (70-110) mg/dL Calcium (8.4-10.2) mg/dL AST (17-59) U/L ALT (4-49) U/L Total Protein (6.3-8.2) g/dL
--- NOTE | 2024-10-17 14:54 | P.PN ---
Subjective Progress Note Date: 10/17/24 Principal diagnosis: Weakness. Patient is a 79-year-old male with past medical history significant for hypertension, hyperlipidemia, diabetes mellitus, GERD, dementia, lower extremity DVT, among other things. Of note, patient recently had an ER visit on October 10, and was found to be positive for COVID. He was discharged home with direction to follow-up with his primary care provider Dr. Garnett. Unclear if the patient ever did follow-up with his PCP, he is a questionable historian. Has Aricept listed in his home medications. Patient did return to the emergency department last night. Apparently, he had a fall and could not get up. He has been generally weak. States his leg started shaking and gave out. Denies losing consciousness or syncopal event. Denies head trauma. He does take warfarin on outpatient basis, however, states he has missed several doses. His INR was subtherapeutic at 1.1 on arrival. ER workup included chest x-ray which shows coarse interstitial infiltrates bilaterally and a stable cardiac silhouette. NT proBNP was low at 148. CBC: WBC count 4.7, hemoglobin 16.9, platelets 129. INR was 1.1. CMP: Sodium 135, potassium 4.4, chloride 101, serum bicarb 20, BUN 30, creatinine 0.78, glucose 126. Lactate was 2.3 and is down to 1.2. Magnesium 2. LFTs unremarkable. Troponin 0.028, 0.036, and 0.031 respectively. NT proBNP was low. Patient is currently being evaluated in the emergency department. He is lying in bed on room air. He denies shortness of breath, sputum production, chest pain, fevers or chills. He does have an intermittent nonproductive cough. Has remained afebrile. He appears generally weak. There is lower extremity edema. He is receiving Lasix 40 mg twice daily. Current vitals: Afebrile, heart rate 75 bpm, blood pressure 132/79 mmHg, nontachypneic, SpO2 is 94% on room air. Progress note dated October 17, 2024. The patient is seen today in room 377. He is eating his lunch. He is sitting up in his bed. He is on 2 L of oxygen. He is getting saline at 10 cc an hour. The patient is currently being treated for cellulitis, with cefazolin. The patient states that he is feeling only a bit better. He came in primarily with weakness. He apparently fell at home and could not get up. The patient was initially thought to have pneumonia, but that is likely not the case. He denies any significant shortness of breath, cough, wheezing, chest tightness, or phlegm production. White count is 5.7, hemoglobin 17.2, hematocrit 49.9, platelet count 128,000. Sodium 137, potassium 3.6, chlorides 100, CO2 28, BUN 33, creatinine 1.10. Glucose is 243. Albumin is 3.6. Objective - Vital Signs Vital signs: Vital Signs Temp 99.9 F H 10/17/24 12:03 Pulse 86 10/17/24 12:03 Resp 14 10/17/24 12:03 BP 141/78 10/17/24 12:03 Pulse Ox 94 L 10/17/24 12:03 FiO2 Intake & Output 10/16/24 10/17/24 10/17/24 18:59 06:59 18:59 Intake Total 180 720 Output Total 1670 2200 800 Balance -1490 -2200 -80 Weight 104.326 kg 102.5 kg 102.5 kg Intake: Oral 180 720 Output: Urine 1670 2200 800 Other: Voiding Method External Catheter # Bowel Movements 1 - Exam No acute distress, oriented 3. HEENT examination is grossly unremarkable. Mucous membranes are moist. No oral lesions. Neck supple. Full range of motion. No adenopathy thyromegaly or neck vein distention. Cardiovascular examination reveals regular rhythm rate. S1-S2 normal. No S3 or S4. No discernible murmur noted. Lungs reveal clear breath sounds. Her sounds are equal bilaterally. No adventitious lung sounds including wheezes rhonchi or crackles. Abdomen soft bowel sounds are heard. No masses or tenderness. Extremities are intact. Mild edema. No cyanosis or clubbing. Skin is without rash or lesion. Neurologic examination is brief but nonfocal. - Labs CBC & Chem 7: 10/17/24 06:34 10/17/24 06:34 Labs: Abnormal Lab Results - Last 24 Hours (Table) 10/16/24 10/16/24 10/17/24 Range/Units 15:49 20:08 06:11 Plt Count (150-450) k/uL PT (10.0-12.5) sec INR (<1.2) BUN (9-20) mg/dL Glucose (74-99) mg/dL POC Glucose (mg/dL) 250 H 210 H 156 H (70-110) mg/dL Calcium (8.4-10.2) mg/dL AST (17-59) U/L ALT (4-49) U/L Total Protein (6.3-8.2) g/dL 10/17/24 10/17/24 10/17/24 Range/Units 06:34 06:34 06:34 Plt Count 128 L (150-450) k/uL PT 13.2 H (10.0-12.5) sec INR 1.2 H (<1.2) BUN 33 H (9-20) mg/dL Glucose 150 H (74-99) mg/dL POC Glucose (mg/dL) (70-110) mg/dL Calcium 8.2 L (8.4-10.2) mg/dL AST 114 H (17-59) U/L ALT 54 H (4-49) U/L Total Protein 6.0 L (6.3-8.2) g/dL 10/17/24 Range/Units 11:32 Plt Count (150-450) k/uL PT (10.0-12.5) sec INR (<1.2) BUN (9-20) mg/dL Glucose (74-99) mg/dL POC Glucose (mg/dL) 243 H (70-110) mg/dL Calcium (8.4-10.2) mg/dL AST (17-59) U/L ALT (4-49) U/L Total Protein (6.3-8.2) g/dL Assessment and Plan Assessment: Generalized weakness and falls. COVID-19 pneumonia, originally tested COVID-positive by PCR on October 10. Bilateral lower extremity edema. History of DVT. Subtherapeutic INR. History of hypertension. History of hyperlipidemia. Diabetes mellitus. GERD. Memory disorder. Obesity, with a BMI of 34 kg/m. Plan: Plan dated October 17, 2024. The patient appears to be doing relatively well. He is seen today in room 377. He continues on oxygen at 2 L. The patient is using Robitussin DM as an antitussive. Labs, x-rays, and medications are reviewed. The patient will likely need to be discharged to rehabilitation, as he is still quite weak. We will continue to follow make recommendations. Pulmonary status is stable. Time with Patient: Less than 30
--- NOTE | 2024-10-17 14:59 | P.PN ---
Subjective Progress Note Date: 10/17/24 Patient is a 79-year-old male with insulin-dependent diabetes mellitus, GERD, hyperlipidemia, hypertension presented to the ER after having a fall earlier yesterday and patient was diagnosed with pneumonia around 1 week ago. Patient was seen at bedside. 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 He reported he sort of collapsed and had loss of balance but did not hit his head. Patient denied passing out or loss of consciousness during the fall. Patient denies any history of seizures. Per ER triage note, patient also on Coumadin but has not taken in over 1 week due to prescription being out. In addition, I did speak with patient's over the phone and she said that patient got COVID over [place]. Patient currently endorses a productive cough with yellow sputum. He feels like the cough is getting worse over the past week. Patient also reported noticing blood in his urine and is having burning sensation when he urinates. He has never had anything like this before. Diarrhea for the past week was also reported. Patient also endorses fever, runny nose, sore throat, chills. Denies nausea, vomiting, chest pain, shortness of breath, tingling or numbness in upper or lower extremities, lightheadedness, dizziness, melena/hematochezia. ED documentation reviewed. In the ED patient was treated with Tylenol 1000 mg p.o. x 1, ibuprofen 600 mg x 1, maintenance fluid of 130 cc an hour, a bolus of normal saline, warfarin 5 mg daily Vitals on admission temperature 100.9, pulse rate 80, respiratory rate 18, blood pressure 125/92, O2 sat 96% on room air EKG independently interpreted as sinus rhythm with ventricular rate of 84 bpm, QTc interval of 413 ms CXR shows cardiomegaly mild pulmonary vascular congestive changes Labs on admission show WBC 4.7, hemoglobin 16.9, hematocrit 50.3, platelet 129, PT 12.7, INR 1.2, PTT 22.6, D-dimer 0.48, sodium 135, potassium 4.4, chloride 101, carbon dioxide 20, BUN 30, creatinine 0.78, glucose 126, lactic acid 1.2, AST 113, troponin 0.036, BNP 148 UA shows 1+ for protein, 4+ glucose, 1+ ketones, moderate blood, negative nitrite, negative leukocyte esterase Progress note for 10/17/2024: Patient was seen at bedside today. Reports shortness of breath. No other complaints at this time. Review of Systems Constitutional: Denies chills, Denies fever Eyes: denies blurred vision, double vision or pain Ears, nose, mouth and throat: Denies headache, Denies sore throat Cardiovascular: Denies chest pain, Denies shortness of breath Respiratory: Denies cough Gastrointestinal: Denies abdominal pain, Denies diarrhea, Denies nausea, Denies vomiting Musculoskeletal: Denies myalgias Integumentary: Denies pruritus, Denies rash Neurological: Denies numbness, Denies weakness Psychiatric: Denies anxiety, Denies depression Endocrine: Denies fatigue, Denies weight change GENERAL: This is a 79-year-old in no apparent distress at the time of examination. Pleasant and cooperative. HEENT: Head is atraumatic, normocephalic. Pupils are equal, round, and reactive to light. Sclerae anicteric. Conjunctivae are clear. Mucus membranes of the mouth are moist. Neck is supple. RESPIRATORY: Clear to auscultation. No wheezes, rales, or rhonchi. No use of accessory muscles. Patient maintaining oxygen saturation greater than 92%. No chest wall tenderness is noted on palpation or with deep breathing. CARDIOVASCULAR: Regular rate and rhythm. S1 and S2 noted. No systolic or diastolic murmur auscultated. No JVD noted. No S3 or S4 noted. GASTROINTESTINAL: No distention noted. Abdomen soft and round. Normal active bowel sounds auscultated x 4 quadrants. No pain or tenderness noted upon palpation. INTEGUMENTARY: No cyanosis. No jaundice. No rashes noted. No cellulitis noted. EXTREMITIES: 2+ peripheral pulses. Trace edema in bilateral lower extremity. No calf tenderness noted. NEUROLOGIC: Cranial nerves II-XII intact. PSYCHIATRIC: Awake, alert. Appropriate affect. Intact judgement and insight. Active: #. COVID-19 pneumonia #. Possible congestive heart failure #. Elevated troponin Continue Lasix oral 40 mg daily Continue metoprolol succinate 25 mg at bedtime Continue lisinopril 40 mg daily Continue aspirin 81 mg daily Continue Lipitor 40 mg at bedtime Initiate Farxiga 10 mg daily Continue symptomatic management for COVID-19 pneumonia as patient initially diagnosed with COVID on October 10 and his symptoms have been going on for more than 7 days and would not qualify for remdesivir per ID consult note Continue cefazolin 2 g IV every 8 hours per ID #. Thrombocytopenia Platelet 128 Monitor morning CBC #. Elevated PT and INR PT 13.2, INR 1.2 Pharmacy is dosing Coumadin #. Hyponatremia, resolved Sodium 137 Monitor morning CMP Hold off on maintenance fluids as patient is currently receiving Lasix #. Hyperglycemia, history of insulin-dependent diabetes mellitus Glucose 243 Initiate low-dose sliding scale insulin Hold home diabetic medications #. Lactic acidosis, resolved Initial 2.3, repeat 1.2 #. Elevated AST AST 114, ALT 54, alkaline phosphatase 84 Monitor morning CMP Chronic: #. GERD Restart Protonix 40 mg daily #. Hyperlipidemia Restart atorvastatin 40 mg at bedtime #. Hypertension Restart ramipril 10 mg twice daily, metoprolol succinate 25 mg at bedtime F: No restrictions E: Replete as needed N: Heart healthy diet A: EMS DVT prophylaxis: Coumadin The patient is admitted with an anticipated more than 2 midnight stay for evaluation of COVID-19 pneumonia, suspected heart failure CODE STATUS: Full code Discussed with: Patient Anticipated discharge place: Home Attestation: I have personally seen and examined the patient with Resident, reviewed the documentation and participated and agree with the assessment and plan as written. Cong Campo MD Objective - Vital Signs Vital signs: Vital Signs Temp 99.9 F H 10/17/24 12:03 Pulse 86 10/17/24 12:03 Resp 14 10/17/24 12:03 BP 141/78 10/17/24 12:03 Pulse Ox 94 L 10/17/24 12:03 FiO2 Intake & Output 10/16/24 10/17/24 10/17/24 18:59 06:59 18:59 Intake Total 180 720 Output Total 1670 2200 800 Balance -1490 -2200 -80 Weight 104.326 kg 102.5 kg 102.5 kg Intake: Oral 180 720 Output: Urine 1670 2200 800 Other: Voiding Method External Catheter # Bowel Movements 1 - Labs CBC & Chem 7: 10/19/24 07:41 10/20/24 07:38 Labs: Abnormal Lab Results - Last 24 Hours (Table) 10/16/24 10/16/24 10/17/24 Range/Units 15:49 20:08 06:11 Plt Count (150-450) k/uL PT (10.0-12.5) sec INR (<1.2) BUN (9-20) mg/dL Glucose (74-99) mg/dL POC Glucose (mg/dL) 250 H 210 H 156 H (70-110) mg/dL Calcium (8.4-10.2) mg/dL AST (17-59) U/L ALT (4-49) U/L Total Protein (6.3-8.2) g/dL 10/17/24 10/17/24 10/17/24 Range/Units 06:34 06:34 06:34 Plt Count 128 L (150-450) k/uL PT 13.2 H (10.0-12.5) sec INR 1.2 H (<1.2) BUN 33 H (9-20) mg/dL Glucose 150 H (74-99) mg/dL POC Glucose (mg/dL) (70-110) mg/dL Calcium 8.2 L (8.4-10.2) mg/dL AST 114 H (17-59) U/L ALT 54 H (4-49) U/L Total Protein 6.0 L (6.3-8.2) g/dL 10/17/24 Range/Units 11:32 Plt Count (150-450) k/uL PT (10.0-12.5) sec INR (<1.2) BUN (9-20) mg/dL Glucose (74-99) mg/dL POC Glucose (mg/dL) 243 H (70-110) mg/dL Calcium (8.4-10.2) mg/dL AST (17-59) U/L ALT (4-49) U/L Total Protein (6.3-8.2) g/dL
[2024-10-17 16:29] LABS: Glucose,Whole Blood 232 mg/dL (70-110)
[2024-10-17] MEDS: WARFARIN 7.5 MG TAB PO ONE (18:03)
[2024-10-17 20:01] LABS: Glucose,Whole Blood 217 mg/dL (70-110)
[2024-10-18 06:14] LABS: Glucose,Whole Blood 166 mg/dL (70-110)
[2024-10-18 06:31] LABS: Basophils % (A) 0 %; Eosinophils # (A) 0.1 k/uL (0-0.7); Eosinophils % (A) 1 %; HCT 46.8 % (39.0-53.0); HGB 15.5 gm/dL (13.0-17.5); Lymphocytes # (A) 1.2 k/uL (1.0-4.8); Lymphocytes % (A) 22 %; MCH 28.8 pg (25.0-35.0); MCV 87.3 fL (80.0-100.0); Mean Platelet Volume 9.1; Monocytes # (A) 0.5 k/uL (0-1.0); Monocytes % (A) 10 %; Neutrophils # (A) 3.5 k/uL (1.3-7.7); Neutrophils % (A) 65 %; Platelet Count 136 k/uL (150-450); RBC 5.36 m/uL (4.30-5.90); RDW 14.2 % (11.5-15.5); WBC 5.3 k/uL (3.8-10.6)
[2024-10-18 06:37] LABS: INR 1.6 (<1.2); Prothrombin Time 16.4 sec (10.0-12.5)
[2024-10-18 06:45] LABS: ALT 42 U/L (4-49); AST 77 U/L (17-59); African American GFR (CKD) >90 (>60 ml/min/1.73 sqM); Alkaline Phosphatase 75 U/L (38-126); Anion Gap 7 mmol/L; Blood Urea Nitrogen 36 mg/dL (9-20); Calcium 7.7 mg/dL (8.4-10.2); Carbon Dioxide 26 mmol/L (22-30); Chloride 99 mmol/L (98-107); Glucose 145 mg/dL (74-99); Non-African American GFR(CKD) 78 (>60 ml/min/1.73 sqM); Potassium 3.3 mmol/L (3.5-5.1); Sodium 132 mmol/L (137-145); Total Bilirubin 0.7 mg/dL (0.2-1.3); Total Protein 5.3 g/dL (6.3-8.2)
[2024-10-18] MEDS: FUROSEMIDE 40 MG TAB PO SCH (08:30)
[2024-10-18] MEDS: lisinopriL 20 MG TAB PO SCH (08:30)
[2024-10-18] MEDS: ASPIRIN 81 MG PO SCH (08:30)
[2024-10-18] MEDS: POTASSIUM CHLORIDE ER 20 MEQ TAB.ER PO STA (08:38)
[2024-10-18 11:32] LABS: Glucose,Whole Blood 242 mg/dL (70-110)
--- NOTE | 2024-10-18 13:35 | P.PN ---
Subjective Progress Note Date: 10/18/24 Principal diagnosis: Weakness. Patient is a 79-year-old male with past medical history significant for hypertension, hyperlipidemia, diabetes mellitus, GERD, dementia, lower extremity DVT, among other things. Of note, patient recently had an ER visit on October 10, and was found to be positive for COVID. He was discharged home with direction to follow-up with his primary care provider Dr. Garnett. Unclear if the patient ever did follow-up with his PCP, he is a questionable historian. Has Aricept listed in his home medications. Patient did return to the emergency department last night. Apparently, he had a fall and could not get up. He has been generally weak. States his leg started shaking and gave out. Denies losing consciousness or syncopal event. Denies head trauma. He does take warfarin on outpatient basis, however, states he has missed several doses. His INR was subtherapeutic at 1.1 on arrival. ER workup included chest x-ray which shows coarse interstitial infiltrates bilaterally and a stable cardiac silhouette. NT proBNP was low at 148. CBC: WBC count 4.7, hemoglobin 16.9, platelets 129. INR was 1.1. CMP: Sodium 135, potassium 4.4, chloride 101, serum bicarb 20, BUN 30, creatinine 0.78, glucose 126. Lactate was 2.3 and is down to 1.2. Magnesium 2. LFTs unremarkable. Troponin 0.028, 0.036, and 0.031 respectively. NT proBNP was low. Patient is currently being evaluated in the emergency department. He is lying in bed on room air. He denies shortness of breath, sputum production, chest pain, fevers or chills. He does have an intermittent nonproductive cough. Has remained afebrile. He appears generally weak. There is lower extremity edema. He is receiving Lasix 40 mg twice daily. Current vitals: Afebrile, heart rate 75 bpm, blood pressure 132/79 mmHg, nontachypneic, SpO2 is 94% on room air. Progress note dated October 17, 2024. The patient is seen today in room 377. He is eating his lunch. He is sitting up in his bed. He is on 2 L of oxygen. He is getting saline at 10 cc an hour. The patient is currently being treated for cellulitis, with cefazolin. The patient states that he is feeling only a bit better. He came in primarily with weakness. He apparently fell at home and could not get up. The patient was initially thought to have pneumonia, but that is likely not the case. He denies any significant shortness of breath, cough, wheezing, chest tightness, or phlegm production. White count is 5.7, hemoglobin 17.2, hematocrit 49.9, platelet count 128,000. Sodium 137, potassium 3.6, chlorides 100, CO2 28, BUN 33, creatinine 1.10. Glucose is 243. Albumin is 3.6. Progress note dated October 18, 2024. 79-year-old male seen in room 377. The patient is currently on Ancef for cellulitis. The patient's procalcitonin level was normal at 0.15. The patient is getting saline at 10 cc an hour, and is on nasal O2 at 3 L. He was admitted primarily for weakness, as he apparently fell at home, and could not get up on his own. Current laboratory data includes a white count 5.3, hemoglobin 15.5, hematocrit 46.8, and a platelet count of 136,000. PT 16.4. INR 1.6. Sodium 132, potassium 3.3, chlorides 99, CO2 26, BUN 36, creatinine 0.94. Glucose is 242. Albumin is 3. Objective - Vital Signs Vital signs: Vital Signs Temp 97.9 F 10/18/24 11:53 Pulse 70 10/18/24 11:53 Resp 14 10/18/24 11:53 BP 124/72 10/18/24 11:53 Pulse Ox 94 L 10/18/24 11:53 FiO2 Intake & Output 10/17/24 10/18/24 10/18/24 18:59 06:59 18:59 Intake Total 960 540 300 Output Total 1300 900 300 Balance -340 -360 0 Weight 102.5 kg 103 kg Intake: Oral 960 540 300 Output: Urine 1300 900 300 Other: Voiding Method External Catheter External Catheter External Catheter # Bowel Movements 1 - Exam No acute distress, oriented 3. HEENT examination is grossly unremarkable. Mucous membranes are moist. No oral lesions. Neck supple. Full range of motion. No adenopathy thyromegaly or neck vein distention. Cardiovascular examination reveals regular rhythm rate. S1-S2 normal. No S3 or S4. No discernible murmur noted. Lungs reveal clear breath sounds. Her sounds are equal bilaterally. No adventitious lung sounds including wheezes rhonchi or crackles. Abdomen soft bowel sounds are heard. No masses or tenderness. Extremities are intact. Mild edema. No cyanosis or clubbing. Skin is without rash or lesion. Neurologic examination is brief but nonfocal. - Labs CBC & Chem 7: 10/18/24 05:46 10/18/24 05:46 Labs: Abnormal Lab Results - Last 24 Hours (Table) 10/17/24 10/17/24 10/18/24 Range/Units 16:27 19:57 05:46 Plt Count 136 L (150-450) k/uL PT (10.0-12.5) sec INR (<1.2) Sodium (137-145) mmol/L Potassium (3.5-5.1) mmol/L BUN (9-20) mg/dL Glucose (74-99) mg/dL POC Glucose (mg/dL) 232 H 217 H (70-110) mg/dL Calcium (8.4-10.2) mg/dL AST (17-59) U/L Total Protein (6.3-8.2) g/dL Albumin (3.5-5.0) g/dL 10/18/24 10/18/24 10/18/24 Range/Units 05:46 05:46 06:12 Plt Count (150-450) k/uL PT 16.4 H (10.0-12.5) sec INR 1.6 H (<1.2) Sodium 132 L (137-145) mmol/L Potassium 3.3 L (3.5-5.1) mmol/L BUN 36 H (9-20) mg/dL Glucose 145 H (74-99) mg/dL POC Glucose (mg/dL) 166 H (70-110) mg/dL Calcium 7.7 L (8.4-10.2) mg/dL AST 77 H (17-59) U/L Total Protein 5.3 L (6.3-8.2) g/dL Albumin 3.0 L (3.5-5.0) g/dL 10/18/24 Range/Units 11:31 Plt Count (150-450) k/uL PT (10.0-12.5) sec INR (<1.2) Sodium (137-145) mmol/L Potassium (3.5-5.1) mmol/L BUN (9-20) mg/dL Glucose (74-99) mg/dL POC Glucose (mg/dL) 242 H (70-110) mg/dL Calcium (8.4-10.2) mg/dL AST (17-59) U/L Total Protein (6.3-8.2) g/dL Albumin (3.5-5.0) g/dL Assessment and Plan Assessment: Generalized weakness and falls. COVID-19 pneumonia, originally tested COVID-positive by PCR on October 10. Bilateral lower extremity edema. History of DVT. Subtherapeutic INR. History of hypertension. History of hyperlipidemia. Diabetes mellitus. GERD. Memory disorder. Obesity, with a BMI of 34 kg/m. Plan: Plan dated October 17, 2024. The patient appears to be doing relatively well. He is seen today in room 377. He continues on oxygen at 2 L. The patient is using Robitussin DM as an antitussive. Labs, x-rays, and medications are reviewed. The patient will likely need to be discharged to rehabilitation, as he is still quite weak. We will continue to follow make recommendations. Pulmonary status is stable. Plan dated October 18, 2024. The patient is seen today in room 377. The patient is currently on 3 L of oxygen by nasal cannula. He is not manifesting any signs or symptoms of respiratory distress. The patient is on Ancef, for cellulitis. The patient's procalcitonin level, is normal, 0.15. The patient is getting saline at 10 cc an hour. Labs, x-rays, and medications are reviewed. The patient fell at home and was weak, and could not get up. He likely will need some sort of rehabilitation after discharge. We will continue to follow. He remains a full code. Time with Patient: Less than 30
--- NOTE | 2024-10-18 15:22 | P.PN ---
Subjective Progress Note Date: 10/18/24 Principal diagnosis: Weakness Patient is a 79-year-old male with insulin-dependent diabetes mellitus, GERD, hyperlipidemia, hypertension presented to the ER after having a fall earlier yesterday and patient was diagnosed with pneumonia around 1 week ago. Patient was seen at bedside. 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 He reported he sort of collapsed and had loss of balance but did not hit his head. Patient denied passing out or loss of consciousness during the fall. Patient denies any history of seizures. Per ER triage note, patient also on Coumadin but has not taken in over 1 week due to prescription being out. In addition, I did speak with patient's over the phone and she said that patient got COVID over [place]. Patient currently endorses a productive cough with yellow sputum. He feels like the cough is getting worse over the past week. Patient also reported noticing blood in his urine and is having burning sensation when he urinates. He has never had anything like this before. Diarrhea for the past week was also reported. Patient also endorses fever, runny nose, sore throat, chills. Denies nausea, vomiting, chest pain, shortness of breath, tingling or numbness in upper or lower extremities, lightheadedness, dizziness, melena/hematochezia. ED documentation reviewed. In the ED patient was treated with Tylenol 1000 mg p.o. x 1, ibuprofen 600 mg x 1, maintenance fluid of 130 cc an hour, a bolus of normal saline, warfarin 5 mg daily Vitals on admission temperature 100.9, pulse rate 80, respiratory rate 18, blood pressure 125/92, O2 sat 96% on room air EKG independently interpreted as sinus rhythm with ventricular rate of 84 bpm, QTc interval of 413 ms CXR shows cardiomegaly mild pulmonary vascular congestive changes Labs on admission show WBC 4.7, hemoglobin 16.9, hematocrit 50.3, platelet 129, PT 12.7, INR 1.2, PTT 22.6, D-dimer 0.48, sodium 135, potassium 4.4, chloride 101, carbon dioxide 20, BUN 30, creatinine 0.78, glucose 126, lactic acid 1.2, AST 113, troponin 0.036, BNP 148 UA shows 1+ for protein, 4+ glucose, 1+ ketones, moderate blood, negative n itrite, negative leukocyte esterase Progress note for 10/17/2024: Patient was seen at bedside today. Reports shortness of breath. No other complaints at this time. Progress note for 10/18/2024: Patient was seen at bedside today. Vitals include temperature 98.3, pulse rate 76, respiratory rate 16, blood pressure 122/69, O2 sat 91% on nasal cannula 3 L/min. WBC 5.3, hemoglobin 15.5, hematocrit 46.8, platelets 136, PT 16.4, INR 1.6, sodium 132, potassium 3.3, chloride 99, carbon dioxide 26, BUN 36, creatinine 0.94, glucose 145, AST 77, ALT 42, alkaline phosphatase 75. Patient was seen at bedside. Reports no complaints at this time. Review of Systems Constitutional: Denies chills, Denies fever Eyes: denies blurred vision, double vision or pain Ears, nose, mouth and throat: Denies headache, Denies sore throat Cardiovascular: Denies chest pain, Denies shortness of breath Respiratory: Denies cough Gastrointestinal: Denies abdominal pain, Denies diarrhea, Denies nausea, Denies vomiting Musculoskeletal: Denies myalgias Integumentary: Denies pruritus, Denies rash Neurological: Denies numbness, Denies weakness Psychiatric: Denies anxiety, Denies depression Endocrine: Denies fatigue, Denies weight change GENERAL: This is a 79-year-old in no apparent distress at the time of examination. Pleasant and cooperative. HEENT: Head is atraumatic, normocephalic. Pupils are equal, round, and reactive to light. Sclerae anicteric. Conjunctivae are clear. Mucus membranes of the mouth are moist. Neck is supple. RESPIRATORY: Clear to auscultation. No wheezes, rales, or rhonchi. No use of accessory muscles. Patient maintaining oxygen saturation greater than 92%. No chest wall tenderness is noted on palpation or with deep breathing. CARDIOVASCULAR: Regular rate and rhythm. S1 and S2 noted. No systolic or diastolic murmur auscultated. No JVD noted. No S3 or S4 noted. GASTROINTESTINAL: No distention noted. Abdomen soft and round. Normal active bowel sounds auscultated x 4 quadrants. No pain or tenderness noted upon palpat ion. INTEGUMENTARY: No cyanosis. No jaundice. No rashes noted. No cellulitis noted. EXTREMITIES: 2+ peripheral pulses. Trace edema in bilateral lower extremity. No calf tenderness noted. NEUROLOGIC: Cranial nerves II-XII intact. PSYCHIATRIC: Awake, alert. Appropriate affect. Intact judgement and insight. Active: #. COVID-19 pneumonia #. Possible congestive heart failure #. Elevated troponin Hold Lasix oral 40 mg daily Continue metoprolol succinate 25 mg at bedtime Continue lisinopril 40 mg daily Continue aspirin 81 mg daily Continue Lipitor 40 mg at bedtime Initiate Farxiga 10 mg daily Continue symptomatic management for COVID-19 pneumonia as patient initially diagnosed with COVID on October 10 and his symptoms have been going on for more than 7 days and would not qualify for remdesivir per ID consult note Continue cefazolin 2 g IV every 8 hours per ID #. Hypokalemia Potassium 3.3 Check magnesium level Potassium chloride ER 40 mEq p.o. x 1 Monitor morning CMP #. Thrombocytopenia Platelet 136 Monitor morning CBC #. Elevated PT and INR PT 16.4, INR 1.6 Pharmacy is dosing Coumadin #. Hyponatremia Sodium 132 Monitor morning CMP Hold off on maintenance fluids as patient is currently receiving Lasix #. Hyperglycemia, history of insulin-dependent diabetes mellitus Glucose 145 Continue low-dose sliding scale insulin Hold home diabetic medications #. Lactic acidosis, resolved Initial 2.3, repeat 1.2 #. Elevated AST AST 77, ALT 42, alkaline phosphatase 75 Monitor morning CMP Chronic: #. GERD Restart Protonix 40 mg daily #. Hyperlipidemia Restart atorvastatin 40 mg at bedtime #. Hypertension Restart ramipril 10 mg twice daily, metoprolol succinate 25 mg at bedtime F: No restrictions E: Replete as needed N: Heart healthy diet A: EMS DVT prophylaxis: Coumadin The patient is admitted with an anticipated more than 2 midnight stay for evaluation of COVID-19 pneumonia, suspected heart failure CODE STATUS: Full code Discussed with: Patient Anticipated discharge place: Discharge to rehab Objective - Vital Signs Vital signs: Vital Signs Temp 98.9 F 10/17/24 20:00 Pulse 77 10/18/24 04:00 Resp 16 10/18/24 04:00 BP 136/77 10/18/24 04:00 Pulse Ox 90 L 10/18/24 04:00 FiO2 Intake & Output 10/17/24 10/18/24 10/18/24 18:59 06:59 18:59 Intake Total 960 540 150 Output Total 1300 900 Balance -340 -360 150 Weight 102.5 kg 103 kg Intake: Oral 960 540 150 Output: Urine 1300 900 Other: Voiding Method External Catheter External Catheter # Bowel Movements 1 - Labs CBC & Chem 7: 10/18/24 05:46 10/18/24 05:46 Labs: Abnormal Lab Results - Last 24 Hours (Table) 10/17/24 10/17/24 10/17/24 Range/Units 11:32 16:27 19:57 Plt Count (150-450) k/uL PT (10.0-12.5) sec INR (<1.2) Sodium (137-145) mmol/L Potassium (3.5-5.1) mmol/L BUN (9-20) mg/dL Glucose (74-99) mg/dL POC Glucose (mg/dL) 243 H 232 H 217 H (70-110) mg/dL Calcium (8.4-10.2) mg/dL AST (17-59) U/L Total Protein (6.3-8.2) g/dL Albumin (3.5-5.0) g/dL 10/18/24 10/18/24 10/18/24 Range/Units 05:46 05:46 05:46 Plt Count 136 L (150-450) k/uL PT 16.4 H (10.0-12.5) sec INR 1.6 H (<1.2) Sodium 132 L (137-145) mmol/L Potassium 3.3 L (3.5-5.1) mmol/L BUN 36 H (9-20) mg/dL Glucose 145 H (74-99) mg/dL POC Glucose (mg/dL) (70-110) mg/dL Calcium 7.7 L (8.4-10.2) mg/dL AST 77 H (17-59) U/L Total Protein 5.3 L (6.3-8.2) g/dL Albumin 3.0 L (3.5-5.0) g/dL 10/18/24 Range/Units 06:12 Plt Count (150-450) k/uL PT (10.0-12.5) sec INR (<1.2) Sodium (137-145) mmol/L Potassium (3.5-5.1) mmol/L BUN (9-20) mg/dL Glucose (74-99) mg/dL POC Glucose (mg/dL) 166 H (70-110) mg/dL Calcium (8.4-10.2) mg/dL AST (17-59) U/L Total Protein (6.3-8.2) g/dL Albumin (3.5-5.0) g/dL
--- NOTE | 2024-10-18 15:36 | P.PN ---
Subjective Progress Note Date: 10/18/24 Principal diagnosis: Reason for follow-up is fever/COVID possible cellulitis Patient is a 79-year-old male with a past medical history significant for diabetes mellitus hypertension hyperlipidemia reflux presenting to the hospital for evaluation of weakness apparently the patient did have a fall and could not get up and apparently has been diagnosed with COVID-19 on October 10, 2024, patient did tested positive for COVID-19 did have mild hypoxemia chest x- ray was mostly CHF pattern and did have swelling to the leg and concern for cellulitis Doppler was negative. On today's evaluation that is 10/18/2024, patient did not have any fever and denies any chills, patient is breathing comfortably on 3 L current oxygen patient with no chest pain however he did have a congested cough bringing up some purulent sputum no nausea vomiting abdominal pain no diarrhea Patient white count is 5.3, creatinine 0.94 Objective - Vital Signs Vital signs: Vital Signs Temp 97.9 F 10/18/24 11:53 Pulse 70 10/18/24 11:53 Resp 14 10/18/24 11:53 BP 124/72 10/18/24 11:53 Pulse Ox 94 L 10/18/24 11:53 FiO2 Intake & Output 10/17/24 10/18/24 10/18/24 18:59 06:59 18:59 Intake Total 960 540 300 Output Total 1300 900 300 Balance -340 -360 0 Weight 102.5 kg 103 kg Intake: Oral 960 540 300 Output: Urine 1300 900 300 Other: Voiding Method External Catheter External Catheter External Catheter # Bowel Movements 1 1 - Exam GENERAL DESCRIPTION: An elderly male lying in bed in no distress RESPIRATORY SYSTEM: Unlabored breathing , decreased breath sounds at bases HEART: S1 S2 regular rate and rhythm , ABDOMEN: Soft , no tenderness EXTREMITIES: Lower extremity swelling redness has decreased - Labs CBC & Chem 7: 10/18/24 05:46 10/18/24 05:46 Labs: Abnormal Lab Results - Last 24 Hours (Table) 10/17/24 10/17/24 10/18/24 Range/Units 16:27 19:57 05:46 Plt Count 136 L (150-450) k/uL PT (10.0-12.5) sec INR (<1.2) Sodium (137-145) mmol/L Potassium (3.5-5.1) mmol/L BUN (9-20) mg/dL Glucose (74-99) mg/dL POC Glucose (mg/dL) 232 H 217 H (70-110) mg/dL Calcium (8.4-10.2) mg/dL AST (17-59) U/L Total Protein (6.3-8.2) g/dL Albumin (3.5-5.0) g/dL 10/18/24 10/18/24 10/18/24 Range/Units 05:46 05:46 06:12 Plt Count (150-450) k/uL PT 16.4 H (10.0-12.5) sec INR 1.6 H (<1.2) Sodium 132 L (137-145) mmol/L Potassium 3.3 L (3.5-5.1) mmol/L BUN 36 H (9-20) mg/dL Glucose 145 H (74-99) mg/dL POC Glucose (mg/dL) 166 H (70-110) mg/dL Calcium 7.7 L (8.4-10.2) mg/dL AST 77 H (17-59) U/L Total Protein 5.3 L (6.3-8.2) g/dL Albumin 3.0 L (3.5-5.0) g/dL 10/18/24 Range/Units 11:31 Plt Count (150-450) k/uL PT (10.0-12.5) sec INR (<1.2) Sodium (137-145) mmol/L Potassium (3.5-5.1) mmol/L BUN (9-20) mg/dL Glucose (74-99) mg/dL POC Glucose (mg/dL) 242 H (70-110) mg/dL Calcium (8.4-10.2) mg/dL AST (17-59) U/L Total Protein (6.3-8.2) g/dL Albumin (3.5-5.0) g/dL Assessment and Plan (1) Bilateral lower leg cellulitis Current Visit: Yes Status: Acute Code(s): L03.116 - CELLULITIS OF LEFT LOWER LIMB; L03.115 - CELLULITIS OF RIGHT LOWER LIMB SNOMED Code(s): 433933431 (2) Allergy to sulfa drugs Current Visit: Yes Status: Acute Code(s): Z88.2 - ALLERGY STATUS TO SULFONAMIDES SNOMED Code(s): 96019543 (3) COVID-19 Current Visit: Yes Status: Acute Code(s): U07.1 - COVID-19 SNOMED Code(s): 356359233 Plan: 1patient is a hospitalized weakness and fall and this patient has been i nitially diagnosed with the COVID-19 on October 10 symptom has been going on for more than 7 days and would not qualify for remdesivir the patient clinical features are more of a fluid overload CHF with increasing swelling to lower extremity some redness as well as a chest x-ray suggestive of pulmonary vascular congestion rather than the infiltrate suggestive of COVID-19 pneumonia and the patient did have a normal procalcitonin will make secondary bacterial pneumonia to be less likely. 2patient did have diffuse swelling lower extremity Doppler has been negative for DVT legs are warm and red to touch underlying cellulitis not entirely excluded 3-patient did have resolution of his fever, to continue with cefazolin 2 g every 8 hours did have significant complaining of some sputum obtain sputum culture repeated chest x-ray Dictation was produced using [employer] dictation software. please excuse any grammatical, word or spelling errors. Time with Patient: Less than 30
[2024-10-18 16:39] LABS: Glucose,Whole Blood 170 mg/dL (70-110)
[2024-10-18] MEDS: WARFARIN 7.5 MG TAB PO ONE (17:15)
[2024-10-18 20:48] LABS: Glucose,Whole Blood 301 mg/dL (70-110)
[2024-10-19 06:19] LABS: Glucose,Whole Blood 119 mg/dL (70-110)
--- NOTE | 2024-10-19 07:29 | XR ---
EXAMINATION TYPE: XR chest 2V DATE OF EXAM: 10/19/2024 CLINICAL HISTORY: Covid Pneumonia TECHNIQUE: Frontal and lateral views of the chest are obtained. COMPARISON: Chest x-ray of 4 days earlier FINDINGS: Persistent mild cardiomegaly with overlying loop recorder. Persistent bilateral increased i nterstitial markings. No pleural effusion or pneumothorax is seen bilaterally. Degenerative change bi lateral glenohumeral joints is redemonstrated. IMPRESSION: Findings favor continued CHF exacerbation/fluid overload state. No significant change fro m most recent prior. [facility], , 10/19/2024 7:26 AM
[2024-10-19 07:53] LABS: Basophils % (A) 1 %; Eosinophils # (A) 0.2 k/uL (0-0.7); Eosinophils % (A) 3 %; HCT 47.7 % (39.0-53.0); HGB 16.1 gm/dL (13.0-17.5); Lymphocytes # (A) 1.5 k/uL (1.0-4.8); Lymphocytes % (A) 25 %; MCH 29.6 pg (25.0-35.0); MCHC 33.8 g/dL (31.0-37.0); MCV 87.7 fL (80.0-100.0); Mean Platelet Volume 8.6; Monocytes # (A) 0.6 k/uL (0-1.0); Monocytes % (A) 10 %; Neutrophils # (A) 3.5 k/uL (1.3-7.7); Neutrophils % (A) 59 %; Platelet Count 158 k/uL (150-450); RBC 5.44 m/uL (4.30-5.90); RDW 14.2 % (11.5-15.5); WBC 5.9 k/uL (3.8-10.6)
[2024-10-19 08:10] LABS: INR 2.5 (<1.2); Prothrombin Time 24.7 sec (10.0-12.5)
[2024-10-19 08:30] LABS: ALT 42 U/L (4-49); AST 72 U/L (17-59); African American GFR (CKD) >90 (>60 ml/min/1.73 sqM); Alkaline Phosphatase 86 U/L (38-126); Anion Gap 7 mmol/L; Blood Urea Nitrogen 31 mg/dL (9-20); Calcium 8.1 mg/dL (8.4-10.2); Carbon Dioxide 25 mmol/L (22-30); Chloride 104 mmol/L (98-107); Glucose 129 mg/dL (74-99); Non-African American GFR(CKD) 87 (>60 ml/min/1.73 sqM); Potassium 3.7 mmol/L (3.5-5.1); Sodium 136 mmol/L (137-145); Total Bilirubin 0.7 mg/dL (0.2-1.3); Total Protein 5.4 g/dL (6.3-8.2)
[2024-10-19 08:44] LABS: C Reactive Protein 6.4 mg/dL (<1.0)
[2024-10-19 11:26] LABS: Glucose,Whole Blood 176 mg/dL (70-110)
--- NOTE | 2024-10-19 12:50 | P.PN ---
Subjective Progress Note Date: 10/19/24 Principal diagnosis: Reason for follow-up is fever/COVID possible cellulitis Patient is a 79-year-old male with a past medical history significant for diabetes mellitus hypertension hyperlipidemia reflux presenting to the hospital for evaluation of weakness apparently the patient did have a fall and could not get up and apparently has been diagnosed with COVID-19 on October 10, 2024, patient did tested positive for COVID-19 did have mild hypoxemia chest x- ray was mostly CHF pattern and did have swelling to the leg and concern for cellulitis Doppler was negative. On today's evaluation that is 10/19/2024, Patient is afebrile patient is currently on room air and denies having any worsening shortness of breath, the patient denies any chest pain currently to have a cough with some sputum production. r cough, the patient denies any nausea vomiting did not have any abdominal pain and no diarrhea. Patient white count is 5.9, creatinine 0.8 Objective - Vital Signs Vital signs: Vital Signs Temp 98.6 F 10/19/24 12:30 Pulse 86 10/19/24 12:30 Resp 14 10/19/24 12:30 BP 159/77 10/19/24 12:30 Pulse Ox 92 L 10/19/24 12:30 FiO2 Intake & Output 10/18/24 10/19/24 10/19/24 18:59 06:59 18:59 Intake Total 480 540 150 Output Total 1300 550 650 Balance -820 -10 -500 Weight 103 kg Intake: Oral 480 540 150 Output: Urine 1300 550 650 Other: Voiding Method External Catheter External Catheter External Catheter # Bowel Movements 1 - Exam GENERAL DESCRIPTION: An elderly male lying in bed in no distress RESPIRATORY SYSTEM: Unlabored breathing , decreased breath sounds at bases HEART: S1 S2 regular rate and rhythm , ABDOMEN: Soft , no tenderness EXTREMITIES: Lower extremity swelling redness has decreased - Labs CBC & Chem 7: 10/19/24 07:41 10/19/24 07:41 Labs: Abnormal Lab Results - Last 24 Hours (Table) 10/18/24 10/18/24 10/19/24 Range/Units 16:37 20:46 06:17 PT (10.0-12.5) sec INR (<1.2) Sodium (137-145) mmol/L BUN (9-20) mg/dL Glucose (74-99) mg/dL POC Glucose (mg/dL) 170 H 301 H 119 H (70-110) mg/dL Calcium (8.4-10.2) mg/dL AST (17-59) U/L C-Reactive Protein (<1.0) mg/dL Total Protein (6.3-8.2) g/dL Albumin (3.5-5.0) g/dL 10/19/24 10/19/24 10/19/24 Range/Units 07:41 07:41 11:25 PT 24.7 H (10.0-12.5) sec INR 2.5 H (<1.2) Sodium 136 L (137-145) mmol/L BUN 31 H (9-20) mg/dL Glucose 129 H (74-99) mg/dL POC Glucose (mg/dL) 176 H (70-110) mg/dL Calcium 8.1 L (8.4-10.2) mg/dL AST 72 H (17-59) U/L C-Reactive Protein 6.4 H (<1.0) mg/dL Total Protein 5.4 L (6.3-8.2) g/dL Albumin 3.0 L (3.5-5.0) g/dL Assessment and Plan (1) Bilateral lower leg cellulitis Current Visit: Yes Status: Acute Code(s): L03.116 - CELLULITIS OF LEFT LOWER LIMB; L03.115 - CELLULITIS OF RIGHT LOWER LIMB SNOMED Code(s): 939419512 (2) Allergy to sulfa drugs Current Visit: Yes Status: Acute Code(s): Z88.2 - ALLERGY STATUS TO SULFONAMIDES SNOMED Code(s): 85358399 (3) COVID-19 Current Visit: Yes Status: Acute Code(s): U07.1 - COVID-19 SNOMED Code(s): 730012513 Plan: 1patient is a hospitalized weakness and fall and this patient has been i nitially diagnosed with the COVID-19 on October 10 symptom has been going on for more than 7 days and would not qualify for remdesivir the patient clinical features are more of a fluid overload CHF with increasing swelling to lower extremity some redness as well as a chest x-ray suggestive of pulmonary vascular congestion rather than the infiltrate suggestive of COVID-19 pneumonia and the patient did have a normal procalcitonin will make secondary bacterial pneumonia to be less likely. 2patient did have diffuse swelling lower extremity Doppler has been negative for DVT legs are warm and red to touch underlying cellulitis not entirely excluded 3-patient did have resolution of his fever repeat chest x-ray suggestive of fluid overload no consolidation on cefazolin consider short course of oral Keflex on discharge Dictation was produced using [employer] dictation software. please excuse any gr ammatical, word or spelling errors. Time with Patient: Less than 30
--- NOTE | 2024-10-19 13:08 | P.PN ---
Subjective Progress Note Date: 10/19/24 Principal diagnosis: Weakness. Patient is a 79-year-old male with past medical history significant for hypertension, hyperlipidemia, diabetes mellitus, GERD, dementia, lower extremity DVT, among other things. Of note, patient recently had an ER visit on October 10, and was found to be positive for COVID. He was discharged home with direction to follow-up with his primary care provider Dr. Garnett. Unclear if the patient ever did follow-up with his PCP, he is a questionable historian. Has Aricept listed in his home medications. Patient did return to the emergency department last night. Apparently, he had a fall and could not get up. He has been generally weak. States his leg started shaking and gave out. Denies losing consciousness or syncopal event. Denies head trauma. He does take warfarin on outpatient basis, however, states he has missed several doses. His INR was subtherapeutic at 1.1 on arrival. ER workup included chest x-ray which shows coarse interstitial infiltrates bilaterally and a stable cardiac silhouette. NT proBNP was low at 148. CBC: WBC count 4.7, hemoglobin 16.9, platelets 129. INR was 1.1. CMP: Sodium 135, potassium 4.4, chloride 101, serum bicarb 20, BUN 30, creatinine 0.78, glucose 126. Lactate was 2.3 and is down to 1.2. Magnesium 2. LFTs unremarkable. Troponin 0.028, 0.036, and 0.031 respectively. NT proBNP was low. Patient is currently being evaluated in the emergency department. He is lying in bed on room air. He denies shortness of breath, sputum production, chest pain, fevers or chills. He does have an intermittent nonproductive cough. Has remained afebrile. He appears generally weak. There is lower extremity edema. He is receiving Lasix 40 mg twice daily. Current vitals: Afebrile, heart rate 75 bpm, blood pressure 132/79 mmHg, nontachypneic, SpO2 is 94% on room air. Progress note dated October 17, 2024. The patient is seen today in room 377. He is eating his lunch. He is sitting up in his bed. He is on 2 L of oxygen. He is getting saline at 10 cc an hour. The patient is currently being treated for cellulitis, with cefazolin. The patient states that he is feeling only a bit better. He came in primarily with weakness. He apparently fell at home and could not get up. The patient was initially thought to have pneumonia, but that is likely not the case. He denies any significant shortness of breath, cough, wheezing, chest tightness, or phlegm production. White count is 5.7, hemoglobin 17.2, hematocrit 49.9, platelet count 128,000. Sodium 137, potassium 3.6, chlorides 100, CO2 28, BUN 33, creatinine 1.10. Glucose is 243. Albumin is 3.6. Progress note dated October 18, 2024. 79-year-old male seen in room 377. The patient is currently on Ancef for cellulitis. The patient's procalcitonin level was normal at 0.15. The patient is getting saline at 10 cc an hour, and is on nasal O2 at 3 L. He was admitted primarily for weakness, as he apparently fell at home, and could not get up on his own. Current laboratory data includes a white count 5.3, hemoglobin 15.5, hematocrit 46.8, and a platelet count of 136,000. PT 16.4. INR 1.6. Sodium 132, potassium 3.3, chlorides 99, CO2 26, BUN 36, creatinine 0.94. Glucose is 242. Albumin is 3. Progress note dated October 19, 2024. 79-year-old male seen again in room 377. The patient is currently doing reason ably well. He still feels quite weak. He was admitted because of weakness, as he fell at home, and could not get up. Currently, he is on 3 L of oxygen. He is getting saline at 10 cc an hour. His only complaint today is urinary burning. UA will be ordered. White count 5.9, hemoglobin 16.1, hematocrit 47.7, and a normal platelet count. PT is 24.7 with an INR of 2.5. Sodium 136, potassium 3.7, chlorides 104, CO2 25, BUN 31, and creatinine 0.8. Glucose is 176. Procalcitonin level is normal at 0.16. Chest x-ray shows findings that are consistent with mild CHF. Objective - Vital Signs Vital signs: Vital Signs Temp 98.6 F 10/19/24 12:30 Pulse 86 10/19/24 12:30 Resp 14 10/19/24 12:30 BP 159/77 10/19/24 12:30 Pulse Ox 92 L 10/19/24 12:30 FiO2 Intake & Output 10/18/24 10/19/24 10/19/24 18:59 06:59 18:59 Intake Total 480 540 150 Output Total 1300 550 650 Balance -820 -10 -500 Weight 103 kg Intake: Oral 480 540 150 Output: Urine 1300 550 650 Other: Voiding Method External Catheter External Catheter External Catheter # Bowel Movements 1 - Exam No acute distress, oriented 3. The patient is currently on 3 L. No respiratory distress. HEENT examination is grossly unremarkable. Mucous membranes are moist. No oral lesions. Neck supple. Full range of motion. No adenopathy thyromegaly or neck vein distention. Cardiovascular examination reveals regular rhythm rate. S1-S2 normal. No S3 or S4. No discernible murmur noted. Lungs reveal minimal basilar crackles. No wheezes. No rhonchi. Breath sounds are equal bilaterally. Saturations are reasonable. Abdomen soft bowel sounds are heard. No masses or tenderness. Extremities are intact. Mild edema. No cyanosis or clubbing. Skin is without rash or lesion. Neurologic examination is brief but nonfocal. - Labs CBC & Chem 7: 10/19/24 07:41 10/19/24 07:41 Labs: Abnormal Lab Results - Last 24 Hours (Table) 10/18/24 10/18/24 10/19/24 Range/Units 16:37 20:46 06:17 PT (10.0-12.5) sec INR (<1.2) Sodium (137-145) mmol/L BUN (9-20) mg/dL Glucose (74-99) mg/dL POC Glucose (mg/dL) 170 H 301 H 119 H (70-110) mg/dL Calcium (8.4-10.2) mg/dL AST (17-59) U/L C-Reactive Protein (<1.0) mg/dL Total Protein (6.3-8.2) g/dL Albumin (3.5-5.0) g/dL 10/19/24 10/19/24 10/19/24 Range/Units 07:41 07:41 11:25 PT 24.7 H (10.0-12.5) sec INR 2.5 H (<1.2) Sodium 136 L (137-145) mmol/L BUN 31 H (9-20) mg/dL Glucose 129 H (74-99) mg/dL POC Glucose (mg/dL) 176 H (70-110) mg/dL Calcium 8.1 L (8.4-10.2) mg/dL AST 72 H (17-59) U/L C-Reactive Protein 6.4 H (<1.0) mg/dL Total Protein 5.4 L (6.3-8.2) g/dL Albumin 3.0 L (3.5-5.0) g/dL Assessment and Plan Assessment: Generalized weakness and falls. COVID-19 pneumonia, originally tested COVID-positive by PCR on October 10. Bilateral lower extremity edema. History of DVT. Subtherapeutic INR. History of hypertension. History of hyperlipidemia. Diabetes mellitus. GERD. Memory disorder. Obesity, with a BMI of 34 kg/m. Plan: Plan dated October 17, 2024. The patient appears to be doing relatively well. He is seen today in room 377. He continues on oxygen at 2 L. The patient is using Robitussin DM as an antitussive. Labs, x-rays, and medications are reviewed. The patient will likely need to be discharged to rehabilitation, as he is still quite weak. We will continue to follow make recommendations. Pulmonary status is stable. Plan dated October 18, 2024. The patient is seen today in room 377. The patient is currently on 3 L of oxygen by nasal cannula. He is not manifesting any signs or symptoms of respiratory distress. The patient is on Ancef, for cellulitis. The patient's procalcitonin level, is normal, 0.15. The patient is getting saline at 10 cc an hour. Labs, x-rays, and medications are reviewed. The patient fell at home and was weak, and could not get up. He likely will need some sort of rehabilitation after discharge. We will continue to follow. He remains a full code. Plan dated October 19, 2024. The patient is seen today in room 377. Currently, the patient is on 3 L of oxygen. Patient is getting saline at 10 cc an hour. We will repeat a UA. He complains of burning on urination. Labs, x-rays, and all medications are reviewed. We will continue to follow with the patient, make recommendations along the way. Prognosis is guarded. The patient continues on Ancef for his cellulitis as per infectious diseases. Time with Patient: Less than 30
--- NOTE | 2024-10-19 14:25 | P.PN ---
Subjective Progress Note Date: 10/19/24 This is a pleasant 79-year-old male admitted for acute COVID-pneumonia diagnosed back on October 10, 2024. Patient does not currently wear home oxygen and currently is on 3 L of nasal cannula. He is having significant cough with sputum production and a sputum culture has been ordered and currently pending at this time. Infectious disease and pulmonary services are following closely patient continues on IV cefazolin. He was originally receiving IV Lasix which is currently held at this time as patient does not appear volume overloaded. Review of Systems Constitutional: Denied any fatigue denied any fever. Cardio vascular: denied any chest pain, palpitations Gastrointestinal: denied any nausea, vomiting, diarrhea Pulmonary: Reports shortness of breath and cough Neurologic denied any new focal deficits All inpatient medications were reviewed and appropriate changes in these medications as dictated in the interval history and assessment and plan. PHYSICAL EXAMINATION: GENERAL: The patient is alert and oriented x3, not in any acute distress. Well developed, well nourished. on 3L of oxygen HEENT: Pupils are round and equally reacting to light. EOMI. No scleral icterus. No conjunctival pallor. Normocephalic, atraumatic. No pharyngeal erythema. No thyromegaly. CARDIOVASCULAR: S1 and S2 present. No murmurs, rubs, or gallops. PULMONARY: Chest is clear to auscultation, no wheezing or crackles. Diminished. ABDOMEN: Soft, nontender, nondistended, normoactive bowel sounds. No palpable organomegaly. MUSCULOSKELETAL: No joint swelling or deformity. EXTREMITIES: No cyanosis, clubbing, or pedal edema. NEUROLOGICAL: Gross neurological examination did not reveal any focal deficits. SKIN: No rashes. 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 Dr. Tabatha MD I have performed a history and physical examination and medical decision making of this patient, discussed the same with the dictator, and agree with the dictators assessment and plan as written, documented as a scribe. Based on total visit time, I have performed more than 50% of this visit. Objective - Vital Signs Vital signs: Vital Signs Temp 98.6 F 10/19/24 12:30 Pulse 86 10/19/24 12:30 Resp 14 10/19/24 12:30 BP 159/77 10/19/24 12:30 Pulse Ox 92 L 10/19/24 12:30 FiO2 Intake & Output 10/18/24 10/19/24 10/19/24 18:59 06:59 18:59 Intake Total 480 540 150 Output Total 1300 550 650 Balance -820 -10 -500 Weight 103 kg Intake: Oral 480 540 150 Output: Urine 1300 550 650 Other: Voiding Method External Catheter External Catheter External Catheter # Bowel Movements 1 - Labs CBC & Chem 7: 10/19/24 07:41 10/19/24 07:41 Labs: Abnormal Lab Results - Last 24 Hours (Table) 10/18/24 10/18/24 10/19/24 Range/Units 16:37 20:46 06:17 PT (10.0-12.5) sec INR (<1.2) Sodium (137-145) mmol/L BUN (9-20) mg/dL Glucose (74-99) mg/dL POC Glucose (mg/dL) 170 H 301 H 119 H (70-110) mg/dL Calcium (8.4-10.2) mg/dL AST (17-59) U/L C-Reactive Protein (<1.0) mg/dL Total Protein (6.3-8.2) g/dL Albumin (3.5-5.0) g/dL 10/19/24 10/19/24 10/19/24 Range/Units 07:41 07:41 11:25 PT 24.7 H (10.0-12.5) sec INR 2.5 H (<1.2) Sodium 136 L (137-145) mmol/L BUN 31 H (9-20) mg/dL Glucose 129 H (74-99) mg/dL POC Glucose (mg/dL) 176 H (70-110) mg/dL Calcium 8.1 L (8.4-10.2) mg/dL AST 72 H (17-59) U/L C-Reactive Protein 6.4 H (<1.0) mg/dL Total Protein 5.4 L (6.3-8.2) g/dL Albumin 3.0 L (3.5-5.0) g/dL Assessment and Plan Time with Patient: Less than 30
[2024-10-19 16:33] LABS: Appearance,Urine Clear (Clear); Bilirubin,Urine Negative (Negative); Blood,Urine Trace (Negative); Color,Urine Light Yellow; Glucose,Urine (UA) 4+ (Negative); Ketones,Urine Negative (Negative); Leukocyte Esterase,Urine Negative (Negative); Nitrite,Urine Negative (Negative); PH, Urine 5.5 (5.0-8.0); Protein,Urine Trace (Negative); RBC,Urine 2 /hpf (0-5); Specific Gravity,Urine 1.031 (1.001-1.035); Squamous Epithelial Cell,Urine 1 /hpf (0-4); Urobilinogen,Urine <2.0 mg/dL (<2.0); WBC,Urine 1 /hpf (0-5)
[2024-10-19 16:52] LABS: Glucose,Whole Blood 208 mg/dL (70-110)
[2024-10-19] MEDS: WARFARIN 1 MG TAB PO ONE (17:30)
[2024-10-19 21:14] LABS: Glucose,Whole Blood 194 mg/dL (70-110)
[2024-10-20 06:23] LABS: Glucose,Whole Blood 136 mg/dL (70-110)
[2024-10-20 08:33] LABS: African American GFR (CKD) >90 (>60 ml/min/1.73 sqM); Anion Gap 11 mmol/L; Blood Urea Nitrogen 25 mg/dL (9-20); Calcium 8.3 mg/dL (8.4-10.2); Carbon Dioxide 23 mmol/L (22-30); Chloride 104 mmol/L (98-107); Glucose 136 mg/dL (74-99); Non-African American GFR(CKD) 89 (>60 ml/min/1.73 sqM); Potassium 4.3 mmol/L (3.5-5.1); Sodium 138 mmol/L (137-145)
[2024-10-20 08:45] LABS: INR 2.3 (<1.2); Prothrombin Time 23.4 sec (10.0-12.5)
[2024-10-20 11:35] LABS: Glucose,Whole Blood 185 mg/dL (70-110)
--- NOTE | 2024-10-20 16:21 | P.PN ---
Subjective Progress Note Date: 10/20/24 Patient is a 79-year-old male with past medical history significant for hypertension, hyperlipidemia, diabetes mellitus, GERD, dementia, lower extremity DVT, among other things. Of note, patient recently had an ER visit on October 10, and was found to be positive for COVID. He was discharged home with direction to follow-up with his primary care provider Dr. Garnett. Unclear if the patient ever did follow-up with his PCP, he is a questionable historian. Has Aricept listed in his home medications. Patient did return to the emergency department last night. Apparently, he had a fall and could not get up. He has been generally weak. States his leg started shaking and gave out. Denies los ing consciousness or syncopal event. Denies head trauma. He does take warfarin on outpatient basis, however, states he has missed several doses. His INR was subtherapeutic at 1.1 on arrival. ER workup included chest x-ray which shows coarse interstitial infiltrates bilaterally and a stable cardiac silhouette. NT proBNP was low at 148. CBC: WBC count 4.7, hemoglobin 16.9, platelets 129. INR was 1.1. CMP: Sodium 135, potassium 4.4, chloride 101, serum bicarb 20, BUN 30, creatinine 0.78, glucose 126. Lactate was 2.3 and is down to 1.2. Magnesium 2. LFTs unremarkable. Troponin 0.028, 0.036, and 0.031 respectively. NT proBNP was low. Patient is currently being evaluated in the emergency department. He is lying in bed on room air. He denies shortness of breath, sputum production, chest pain, fevers or chills. He does have an intermittent nonproductive cough. Has remained afebrile. He appears generally weak. There is lower extremity edema. He is receiving Lasix 40 mg twice daily. Current vitals: Afebrile, heart rate 75 bpm, blood pressure 132/79 mmHg, nontachypneic, SpO2 is 94% on room air. Progress note dated October 17, 2024. The patient is seen today in room 377. He is eating his lunch. He is sitting up in his bed. He is on 2 L of oxygen. He is getting saline at 10 cc an hour. The patient is currently being treated for cellulitis, with cefazolin. The dawna bhatia states that he is feeling only a bit better. He came in primarily with weakness. He apparently fell at home and could not get up. The patient was initially thought to have pneumonia, but that is likely not the case. He denies any significant shortness of breath, cough, wheezing, chest tightness, or phlegm production. White count is 5.7, hemoglobin 17.2, hematocrit 49.9, platelet count 128,000. Sodium 137, potassium 3.6, chlorides 100, CO2 28, BUN 33, creatinine 1.10. Glucose is 243. Albumin is 3.6. Progress note dated October 18, 2024. 79-year-old male seen in room 377. The patient is currently on Ancef for cellulitis. The patient's procalcitonin level was normal at 0.15. The patient is getting saline at 10 cc an hour, and is on nasal O2 at 3 L. He was admitted primarily for weakness, as he apparently fell at home, and could not get up on his own. Current laboratory data includes a white count 5.3, hemoglobin 15.5, hematocrit 46.8, and a platelet count of 136,000. PT 16.4. INR 1.6. Sodium 132, potassium 3.3, chlorides 99, CO2 26, BUN 36, creatinine 0.94. Glucose is 242. Albumin is 3. Progress note dated October 19, 2024. 79-year-old male seen again in room 377. The patient is currently doing reasonably well. He still feels quite weak. He was admitted because of weakness, as he fell at home, and could not get up. Currently, he is on 3 L of oxygen. He is getting saline at 10 cc an hour. His only complaint today is urinary burning. UA will be ordered. White count 5.9, hemoglobin 16.1, hematocrit 47.7, and a normal platelet count. PT is 24.7 with an INR of 2.5. Sodium 136, potassium 3.7, chlorides 104, CO2 25, BUN 31, and creatinine 0.8. G lucose is 176. Procalcitonin level is normal at 0.16. Chest x-ray shows findings that are consistent with mild CHF. On 10/20/2024, the patient is being seen for a follow-up. The patient is currently on room air oxygen. No significant respiratory distress. Overall, he feels quite weak and is working with physical therapy. The patient has no significant cough or sputum production as he recovers from the COVID-19 infection and the patient tested positive for COVID-19 on 10/10/2024. He has history of diabetes mellitus type 2, hypertension hyperlipidemia and he has obesity with a BMI of 34. He does have some residual lower extremity edema. INR today is at 2.3 and the patient continues to be on anticoagulation warfarin. No other significant events otherwise over the past 24 hours. The patient is also suspected to have some cellulitis of the lower extremities and the patient is currently on IV cefazolin. ID is on the case. Most recent chest x-ray was from 10/19/2024 and it showed some CHF and increased pulmonary vascular markings and cardiomegaly. No airspace disease or consolidations. Echocardiogram was done on 10/16/2024 showing preserved LV function with an ejection fraction of 55 to 60%, trace pericardial effusion. Procalcitonin level was at 0.16. Objective - Vital Signs Vital signs: Vital Signs Temp 98.2 F 10/20/24 08:00 Pulse 53 L 10/20/24 12:00 Resp 16 10/20/24 12:00 BP 165/72 10/20/24 12:00 Pulse Ox 91 L 10/20/24 12:00 FiO2 Intake & Output 10/19/24 10/20/24 10/20/24 18:59 06:59 18:59 Intake Total 750 300 Output Total 1050 1275 200 Balance -300 -1275 100 Weight 103.5 kg Intake: Oral 750 300 Output: Urine 1050 1275 200 Other: Voiding Method External Catheter External Catheter External Catheter # Bowel Movements 1 0 - Exam No acute distress, oriented 3. The patient is currently on 3 L. No respiratory distress. HEENT examination is grossly unremarkable. Mucous membranes are moist. No oral lesions. Neck supple. Full range of motion. No adenopathy thyromegaly or neck vein distention. Cardiovascular examination reveals regular rhythm rate. S1-S2 normal. No S3 or S4. No discernible murmur noted. Lungs reveal minimal basilar crackles. No wheezes. No rhonchi. Breath sounds are equal bilaterally. Saturations are reasonable. Abdomen soft bowel sounds are heard. No masses or tenderness. Extremities are intact. Mild edema. No cyanosis or clubbing. Skin is without rash or lesion. Neurologic examination is brief but nonfocal. Generalized global weakness in all 4 extremities - Labs CBC & Chem 7: 10/19/24 07:41 10/20/24 07:38 Labs: Abnormal Lab Results - Last 24 Hours (Table) 10/19/24 10/19/24 10/19/24 Range/Units 15:00 16:50 21:11 PT (10.0-12.5) sec INR (<1.2) BUN (9-20) mg/dL Glucose (74-99) mg/dL POC Glucose (mg/dL) 208 H 194 H (70-110) mg/dL Calcium (8.4-10.2) mg/dL Urine Protein Trace H (Negative) Urine Glucose (UA) 4+ H (Negative) Urine Blood Trace H (Negative) 10/20/24 10/20/24 10/20/24 Range/Units 06:21 07:38 07:38 PT 23.4 H (10.0-12.5) sec INR 2.3 H (<1.2) BUN 25 H (9-20) mg/dL Glucose 136 H (74-99) mg/dL POC Glucose (mg/dL) 136 H (70-110) mg/dL Calcium 8.3 L (8.4-10.2) mg/dL Urine Protein (Negative) Urine Glucose (UA) (Negative) Urine Blood (Negative) 10/20/24 Range/Units 11:34 PT (10.0-12.5) sec INR (<1.2) BUN (9-20) mg/dL Glucose (74-99) mg/dL POC Glucose (mg/dL) 185 H (70-110) mg/dL Calcium (8.4-10.2) mg/dL Urine Protein (Negative) Urine Glucose (UA) (Negative) Urine Blood (Negative) Microbiology - Last 24 Hours (Table) 10/19/24 18:20 Gram Stain - Preliminary Sputum Sputum Culture - Preliminary Assessment and Plan Plan: Generalized weakness and falls, multifactorial, could be further exacerbated by COVID-19 infection COVID-19 pneumonia, originally tested COVID-positive by PCR on October 10. Patient is currently on room air oxygen. No signs of any significant respiratory insufficiency. Most recent chest x-ray from 10/19/2024 shows mild cardiomegaly. Patient has a preserved LV function Bilateral lower extremity edema. Doppler of the lower extremity was negative for DVT. History of DVT, medical anticoagulation with warfarin with a therapeutic PT/INR History of hypertension. History of hyperlipidemia. Diabetes mellitus. GERD. Memory disorder. Obesity, with a BMI of 34 kg/m. Plan: Patient currently on room air oxygen Echocardiogram shows a preserved LV function Chest x-ray shows mild cardiomegaly Patient is profoundly weak and will benefit from physical therapy Procalcitonin level is not elevated Remains on IV cefazolin for a cellulitis of lower extremities. Doppler of the lower extremity was negative for DVT.
[2024-10-20 16:33] LABS: Glucose,Whole Blood 238 mg/dL (70-110)
[2024-10-20] MEDS: WARFARIN 5 MG TAB PO ONE (17:11)
--- NOTE | 2024-10-20 17:14 | P.PN ---
Progress Note - Text Progress Note Date: 10/20/24 This is a pleasant 79-year-old male admitted for acute COVID-pneumonia diagnosed back on October 10, 2024. Patient does not currently wear home oxygen and currently is on 3 L of nasal cannula. He is having significant cough with sputum production and a sputum culture has been ordered and currently pending at this time. Infectious disease and pulmonary services are following closely patient continues on IV cefazolin. He was originally receiving IV Lasix which is currently held at this time as patient does not appear volume overloaded. October 20: Eating fair. Pulse ox 91% room air. Does use a walker at baseline. Still bringing up significant phlegm. Sputum cultures pending. Patient on IV cefazolin for lower extremity cellulitis. Eating well. Have the nurse with the patient up in a chair. Chest x-ray shows infiltrate versus effusion Active Medications Acetaminophen (Acetaminophen Tab 325 Mg Tab) 650 mg PO Q6HR PRN PRN Reason: Fever and/ or Pain Last Admin: 10/18/24 08:29 Dose: 650 mg Aspirin (Aspirin 81 Mg) 81 mg PO DAILY [facility] Last Admin: 10/20/24 08:45 Dose: 81 mg Atorvastatin Calcium (Atorvastatin 40 Mg Tab) 40 mg PO HS [facility] Last Admin: 10/19/24 21:33 Dose: 40 mg Dapagliflozin (Dapagliflozin Propanediol 10 Mg Tablet) 10 mg PO DAILY [facility] Last Admin: 10/20/24 08:45 Dose: 10 mg Guaifenesin/Dextromethorphan (Guaifenesin-Dm 100-10mg/5ml 10 Ml Cup) 10 ml PO Q6HR PRN PRN Reason: Cough Last Admin: 10/19/24 03:09 Dose: 10 ml Cefazolin Sodium 2 gm/ Sodium (Chloride) 50 mls @ 100 mls/hr IVPB Q8HR [facility]; Protocol Last Admin: 10/20/24 08:45 Dose: 100 mls/hr Insulin Aspart (Insulin Aspart (Novolog) 100 Unit/Ml Vial) 0 unit SQ ACHS [facility]; Protocol Last Admin: 10/20/24 12:41 Dose: 3 unit Lisinopril (Lisinopril 20 Mg Tab) 40 mg PO DAILY [facility] Last Admin: 10/20/24 08:44 Dose: 40 mg Metoprolol Succinate (Metoprolol Succinate (Er) 25 Mg Tab.Er.24h) 25 mg PO [facility] Last Admin: 10/19/24 21:33 Dose: 25 mg Miscellaneous Information (Warfarin Per Pharmacy) 0 each MISCELLANE DIRECTED PRN PRN Reason: protocol Pantoprazole Sodium (Pantoprazole 40 Mg Tablet) 40 mg PO AC-BRKFST [facility] Last Admin: 10/20/24 06:26 Dose: 40 mg Warfarin Sodium (Warfarin 5 Mg Tab) 5 mg PO ONCE@1800 ONE Stop: 10/20/24 18:01 On examination: VITAL SIGNS: [98.2, 53, 16, 165 x 72, 91% room air] GENERAL APPEARANCE: Reclining in bed, bit tired HEENT: Normal external appearance of nose and ear. Oral cavity normal EYES: Pupils equal. Conjunctiva normal. NECK: JVD not raised. Mass not palpable. RESPIRATORY: Respiratory effort increased, some basal crackles CARDIOVASCULAR: First and second sounds normal. No edema. ABDOMEN: Soft. Liver and spleen not palpable. No tenderness. No mass palpable. PSYCHIATRY: Alert and oriented x3. Mood and affect normal. INVESTIGATIONS, reviewed in the clinical context: October 20: INR 2.3 potassium 4.3 creatinine 0.75 Procalcitonin 0.16 2D echo: EF 55 to 60%. Doppler ultrasound right and left leg: Negative for DVT Assessment and Plan: - acute COVID-19 pneumonia, with some hypoxia Incentive spirometry. -Acute hypoxemic respiratory failure secondary to above Keep pulse ox above 2% Acute on chronic congestive heart failure from diastolic dysfunction EF 60 to 65%: Improved -Troponinemia due to hemodynamic instability. 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 Being followed by ID -Lactic acidosis resolved -Acute transaminitis secondary to acute COVID infection: Better -Gastroesophageal reflux disease Protonix -Hyperlipidemia Resume Lipitor -Essential hypertension Toprol-XL. Ramipril. -Obesity, BMI 33.7 Full Code Supplemental oxygen to keep the pulse ox around 94%. Sit up in a chair. Incentive spirometry.
[2024-10-20 20:33] LABS: Glucose,Whole Blood 199 mg/dL (70-110)
[2024-10-21 06:06] LABS: Glucose,Whole Blood 126 mg/dL (70-110)
[2024-10-21 08:10] LABS: INR 2.5 (<1.2); Prothrombin Time 25.2 sec (10.0-12.5)
[2024-10-21 11:18] VITALS: BMI 34.7
[2024-10-21 11:26] LABS: Glucose,Whole Blood 155 mg/dL (70-110)
--- NOTE | 2024-10-21 13:05 | P.PN ---
Subjective Progress Note Date: 10/20/24 Principal diagnosis: Reason for follow-up is fever/COVID possible cellulitis Patient is a 79-year-old male with a past medical history significant for diabetes mellitus hypertension hyperlipidemia reflux presenting to the hospital for evaluation of weakness apparently the patient did have a fall and could not get up and apparently has been diagnosed with COVID-19 on October 10, 2024, patient did tested positive for COVID-19 did have mild hypoxemia chest x- ray was mostly CHF pattern and did have swelling to the leg and concern for cellulitis Doppler was negative. On today's evaluation that is 10/20/2023, patient has been afebrile and denies having any chills patient denies having any chest pain shortness of breath he did have a congested cough and occasional sputum no nausea vomiting lower extremity swelling redness has improved. No CBC was done today his white count normal as of yesterday creatinine 0.75 urine is negative chest x-ray with mostly CHF Objective - Vital Signs Vital signs: Vital Signs Temp 98.2 F 10/20/24 08:00 Pulse 53 L 10/20/24 12:00 Resp 16 10/20/24 12:00 BP 165/72 10/20/24 12:00 Pulse Ox 91 L 10/20/24 12:00 FiO2 Intake & Output 10/19/24 10/20/24 10/20/24 18:59 06:59 18:59 Intake Total 750 550 Output Total 1050 1275 200 Balance -300 -1275 350 Weight 103.5 kg Intake: Oral 750 550 Output: Urine 1050 1275 200 Other: Voiding Method External Catheter External Catheter External Catheter # Bowel Movements 1 0 - Exam GENERAL DESCRIPTION: An elderly male lying in bed in no distress RESPIRATORY SYSTEM: Unlabored breathing , decreased breath sounds at bases HEART: S1 S2 regular rate and rhythm , ABDOMEN: Soft , no tenderness EXTREMITIES: Lower extremity swelling redness has decreased - Labs CBC & Chem 7: 10/19/24 07:41 10/20/24 07:38 Labs: Abnormal Lab Results - Last 24 Hours (Table) 10/19/24 10/19/24 10/19/24 Range/Units 15:00 16:50 21:11 PT (10.0-12.5) sec INR (<1.2) BUN (9-20) mg/dL Glucose (74-99) mg/dL POC Glucose (mg/dL) 208 H 194 H (70-110) mg/dL Calcium (8.4-10.2) mg/dL Urine Protein Trace H (Negative) Urine Glucose (UA) 4+ H (Negative) Urine Blood Trace H (Negative) 10/20/24 10/20/24 10/20/24 Range/Units 06:21 07:38 07:38 PT 23.4 H (10.0-12.5) sec INR 2.3 H (<1.2) BUN 25 H (9-20) mg/dL Glucose 136 H (74-99) mg/dL POC Glucose (mg/dL) 136 H (70-110) mg/dL Calcium 8.3 L (8.4-10.2) mg/dL Urine Protein (Negative) Urine Glucose (UA) (Negative) Urine Blood (Negative) 10/20/24 Range/Units 11:34 PT (10.0-12.5) sec INR (<1.2) BUN (9-20) mg/dL Glucose (74-99) mg/dL POC Glucose (mg/dL) 185 H (70-110) mg/dL Calcium (8.4-10.2) mg/dL Urine Protein (Negative) Urine Glucose (UA) (Negative) Urine Blood (Negative) Microbiology - Last 24 Hours (Table) 10/19/24 18:20 Gram Stain - Preliminary Sputum Sputum Culture - Preliminary Assessment and Plan (1) Bilateral lower leg cellulitis Current Visit: Yes Status: Acute Code(s): L03.116 - CELLULITIS OF LEFT LOWER LIMB; L03.115 - CELLULITIS OF RIGHT LOWER LIMB SNOMED Code(s): 286104620 (2) Allergy to sulfa drugs Current Visit: Yes Status: Acute Code(s): Z88.2 - ALLERGY STATUS TO SULFONAMIDES SNOMED Code(s): 65928211 (3) COVID-19 Current Visit: Yes Status: Acute Code(s): U07.1 - COVID-19 SNOMED Code(s): 783274205 Plan: 1patient is a hospitalized weakness and fall and this patient has been initially diagnosed with the COVID-19 on October 10 symptom has been going on for more than 7 days and would not qualify for remdesivir the patient clinical f eatures are more of a fluid overload CHF with increasing swelling to lower extremity some redness as well as a chest x-ray suggestive of pulmonary vascular congestion rather than the infiltrate suggestive of COVID-19 pneumonia and the patient did have a normal procalcitonin will make secondary bacterial pneumonia to be less likely. 2patient did have diffuse swelling lower extremity Doppler has been negative for DVT legs are warm and red to touch underlying cellulitis not entirely excluded 3-patient did have resolution of his fever repeat chest x-ray suggestive of fluid overload no consolidation, await sputum culture to finalize continue cefazolin Dictation was produced using [employer] dictation software. please excuse any grammatical, word or spelling errors. Time with Patient: Less than 30
--- NOTE | 2024-10-21 13:06 | P.PN ---
Subjective Progress Note Date: 10/21/24 Principal diagnosis: Reason for follow-up is fever/COVID possible cellulitis Patient is a 79-year-old male with a past medical history significant for diabetes mellitus hypertension hyperlipidemia reflux presenting to the hospital for evaluation of weakness apparently the patient did have a fall and could not get up and apparently has been diagnosed with COVID-19 on October 10, 2024, patient did tested positive for COVID-19 did have mild hypoxemia chest x- ray was mostly CHF pattern and did have swelling to the leg and concern for cellulitis Doppler was negative. On today's evaluation that is 10/21/2023, Patient is afebrile this morning patient denies having any chest pain shortness of breath still complains of some cough but denies any worsening cough or sputum production, the patient is currently on room air, patient denies any abdominal pain no diarrhea no nausea no vomiting. Patient did have INR of 2.5 sputum culture has been related respiratory breanna chest x-ray is mostly CHF Objective - Vital Signs Vital signs: Vital Signs Temp 98 F 10/21/24 08:00 Pulse 74 10/21/24 11:46 Resp 16 10/21/24 11:46 BP 153/81 10/21/24 11:46 Pulse Ox 92 L 10/21/24 11:46 FiO2 Intake & Output 10/20/24 10/21/24 10/21/24 18:59 06:59 18:59 Intake Total 1168 222 Output Total 1800 550 Balance -632 -550 222 Weight 106.5 kg 106.5 kg Intake: Oral 1168 222 Output: Urine 1800 550 Other: Voiding Method External Catheter External Catheter External Catheter # Bowel Movements 0 - Exam GENERAL DESCRIPTION: An elderly male lying in bed in no distress RESPIRATORY SYSTEM: Unlabored breathing , decreased breath sounds at bases HEART: S1 S2 regular rate and rhythm , ABDOMEN: Soft , no tenderness EXTREMITIES: Lower extremity swelling redness has decreased - Labs CBC & Chem 7: 10/19/24 07:41 10/20/24 07:38 Labs: Abnormal Lab Results - Last 24 Hours (Table) 10/20/24 10/20/24 10/21/24 Range/Units 16:32 20:32 06:04 PT (10.0-12.5) sec INR (<1.2) POC Glucose (mg/dL) 238 H 199 H 126 H (70-110) mg/dL 10/21/24 10/21/24 Range/Units 07:38 11:24 PT 25.2 H (10.0-12.5) sec INR 2.5 H (<1.2) POC Glucose (mg/dL) 155 H (70-110) mg/dL Microbiology - Last 24 Hours (Table) 10/19/24 18:20 Gram Stain - Final Sputum Sputum Culture - Final Assessment and Plan (1) Bilateral lower leg cellulitis Current Visit: Yes Status: Acute Code(s): L03.116 - CELLULITIS OF LEFT LOWER LIMB; L03.115 - CELLULITIS OF RIGHT LOWER LIMB SNOMED Code(s): 491218304 (2) Allergy to sulfa drugs Current Visit: Yes Status: Acute Code(s): Z88.2 - ALLERGY STATUS TO SULFONAMIDES SNOMED Code(s): 43245429 (3) COVID-19 Current Visit: Yes Status: Acute Code(s): U07.1 - COVID-19 SNOMED Code(s): 788493864 Plan: 1patient is a hospitalized weakness and fall and this patient has been initially diagnosed with the COVID-19 on October 10 symptom has been going on for more than 7 days and would not qualify for remdesivir the patient clinical features are more of a fluid overload CHF with increasing swelling to lower extremity some redness as well as a chest x-ray suggestive of pulmonary vascular congestion rather than the infiltrate suggestive of COVID-19 pneumonia and the patient did have a normal procalcitonin will make secondary bacterial pneumonia to be less likely. 2patient did have diffuse swelling lower extremity Doppler has been negative for DVT legs are warm and red to touch underlying cellulitis not entirely excluded 3-patient did have resolution of his fever repeat chest x-ray suggestive of fluid overload no consolidation, sputum culture have been negative as well and patient has received adequate antibiotic for lower extremity cellulitis we will go ahead and discontinue cefazolin monitor the patient closely off antibiotic Dictation was produced using [employer] dictation software. please excuse any grammatical, word or spelling errors. Time with Patient: Less than 30
--- NOTE | 2024-10-21 15:03 | P.PN ---
Progress Note - Text Progress Note Date: 10/21/24 This is a pleasant 79-year-old male admitted for acute COVID-pneumonia diagnosed back on October 10, 2024. Patient does not currently wear home oxygen and currently is on 3 L of nasal cannula. He is having significant cough with sputum production and a sputum culture has been ordered and currently pending at this time. Infectious disease and pulmonary services are following closely patient continues on IV cefazolin. He was originally receiving IV Lasix which is currently held at this time as patient does not appear volume overloaded. October 20: Eating fair. Pulse ox 91% room air. Does use a walker at baseline. Still bringing up significant phlegm. Sputum cultures pending. Patient on IV cefazolin for lower extremity cellulitis. Eating well. Have the nurse with the patient up in a chair. Chest x-ray shows infiltrate versus effusion October 21: Oral intake remains good. Walked about 2 feet with a rolling walker. electrical lineworker looking into rehab. Lower extremity cellulitis improved. Patient is off antibiotics. On room air. Active Medications Acetaminophen (Acetaminophen Tab 325 Mg Tab) 650 mg PO Q6HR PRN PRN Reason: Fever and/ or Pain Last Admin: 10/18/24 08:29 Dose: 650 mg Aspirin (Aspirin 81 Mg) 81 mg PO DAILY [facility] Last Admin: 10/21/24 08:50 Dose: 81 mg Atorvastatin Calcium (Atorvastatin 40 Mg Tab) 40 mg PO [facility] Last Admin: 10/20/24 20:56 Dose: 40 mg Dapagliflozin (Dapagliflozin Propanediol 10 Mg Tablet) 10 mg PO DAILY [facility] Last Admin: 10/21/24 08:50 Dose: 10 mg Guaifenesin/Dextromethorphan (Guaifenesin-Dm 100-10mg/5ml 10 Ml Cup) 10 ml PO Q6HR PRN PRN Reason: Cough Last Admin: 10/21/24 11:43 Dose: 10 ml Insulin Aspart (Insulin Aspart (Novolog) 100 Unit/Ml Vial) 0 unit SQ [facility]; Protocol Last Admin: 10/21/24 11:43 Dose: 3 unit Lisinopril (Lisinopril 20 Mg Tab) 40 mg PO DAILY [facility] Last Admin: 10/21/24 08:54 Dose: Not Given Metoprolol Succinate (Metoprolol Succinate (Er) 25 Mg Tab.Er.24h) 25 mg PO [facility] Last Admin: 10/20/24 20:56 Dose: 25 mg Miscellaneous Information (Warfarin Per Pharmacy) 0 each MISCELLANE DIRECTED PRN PRN Reason: protocol Pantoprazole Sodium (Pantoprazole 40 Mg Tablet) 40 mg PO AC-BRKFST [facility] Last Admin: 10/21/24 06:41 Dose: 40 mg Warfarin Sodium (Warfarin 5 Mg Tab) 5 mg PO ONCE@1800 ONE Stop: 10/21/24 18:01 On examination: VITAL SIGNS: 98, 74, 16, 153 x 81, 92% room air GENERAL APPEARANCE: Reclining in bed, comfortable HEENT: Normal external appearance of nose and ear. Oral cavity normal EYES: Pupils equal. Conjunctiva normal. NECK: JVD not raised. Mass not palpable. RESPIRATORY: Respiratory effort increased, improved air entry CARDIOVASCULAR: First and second sounds normal. No edema. ABDOMEN: Soft. Liver and spleen not palpable. No tenderness. No mass palpable. PSYCHIATRY: Alert and oriented x3. Mood and affect normal. INVESTIGATIONS, reviewed in the clinical context: October 20: INR 2.3 potassium 4.3 creatinine 0.75 Procalcitonin 0.16 2D echo: EF 55 to 60%. Doppler ultrasound right and left leg: Negative for DVT Assessment and Plan: - acute COVID-19 pneumonia, with some hypoxia: Improved Incentive spirometry. -Acute hypoxemic respiratory failure secondary to above: Much better Keep pulse ox above 92% Acute on chronic congestive heart failure from diastolic dysfunction EF 60 to 65%: Improved -Troponinemia due to hemodynamic instability. 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 Being followed by ID: Completed course -Acute medical debility from above presentation. PT OT on the case. Pending rehab -Lactic acidosis resolved -Acute transaminitis secondary to acute COVID infection: Better -Gastroesophageal reflux disease Protonix -Hyperlipidemia Resume Lipitor -Essential hypertension Toprol-XL. Ramipril. -Obesity, BMI 33.7 Full Code Disposition: Pending rehab Discussed with patient. electrical lineworker working on rehab. Other medications to continue.
[2024-10-21 16:34] LABS: Glucose,Whole Blood 393 mg/dL (70-110)
[2024-10-21] MEDS: WARFARIN 5 MG TAB PO ONE (16:50)
[2024-10-21 20:55] LABS: Glucose,Whole Blood 136 mg/dL (70-110)
--- NOTE | 2024-10-21 21:59 | P.PN ---
Subjective Progress Note Date: 10/21/24 Patient is a 79-year-old male with past medical history significant for hypertension, hyperlipidemia, diabetes mellitus, GERD, dementia, lower extremity DVT, among other things. Of note, patient recently had an ER visit on October 10, and was found to be positive for COVID. He was discharged home with direction to follow-up with his primary care provider Dr. Garnett. Unclear if the patient ever did follow-up with his PCP, he is a questionable historian. Has Aricept listed in his home medications. Patient did return to the emergency department last night. Apparently, he had a fall and could not get up. He has been generally weak. States his leg started shaking and gave out. Denies los ing consciousness or syncopal event. Denies head trauma. He does take warfarin on outpatient basis, however, states he has missed several doses. His INR was subtherapeutic at 1.1 on arrival. ER workup included chest x-ray which shows coarse interstitial infiltrates bilaterally and a stable cardiac silhouette. NT proBNP was low at 148. CBC: WBC count 4.7, hemoglobin 16.9, platelets 129. INR was 1.1. CMP: Sodium 135, potassium 4.4, chloride 101, serum bicarb 20, BUN 30, creatinine 0.78, glucose 126. Lactate was 2.3 and is down to 1.2. Magnesium 2. LFTs unremarkable. Troponin 0.028, 0.036, and 0.031 respectively. NT proBNP was low. Patient is currently being evaluated in the emergency department. He is lying in bed on room air. He denies shortness of breath, sputum production, chest pain, fevers or chills. He does have an intermittent nonproductive cough. Has remained afebrile. He appears generally weak. There is lower extremity edema. He is receiving Lasix 40 mg twice daily. Current vitals: Afebrile, heart rate 75 bpm, blood pressure 132/79 mmHg, nontachypneic, SpO2 is 94% on room air. Progress note dated October 17, 2024. The patient is seen today in room 377. He is eating his lunch. He is sitting up in his bed. He is on 2 L of oxygen. He is getting saline at 10 cc an hour. The patient is currently being treated for cellulitis, with cefazolin. The dawna bhatia states that he is feeling only a bit better. He came in primarily with weakness. He apparently fell at home and could not get up. The patient was initially thought to have pneumonia, but that is likely not the case. He denies any significant shortness of breath, cough, wheezing, chest tightness, or phlegm production. White count is 5.7, hemoglobin 17.2, hematocrit 49.9, platelet count 128,000. Sodium 137, potassium 3.6, chlorides 100, CO2 28, BUN 33, creatinine 1.10. Glucose is 243. Albumin is 3.6. Progress note dated October 18, 2024. 79-year-old male seen in room 377. The patient is currently on Ancef for cellulitis. The patient's procalcitonin level was normal at 0.15. The patient is getting saline at 10 cc an hour, and is on nasal O2 at 3 L. He was admitted primarily for weakness, as he apparently fell at home, and could not get up on his own. Current laboratory data includes a white count 5.3, hemoglobin 15.5, hematocrit 46.8, and a platelet count of 136,000. PT 16.4. INR 1.6. Sodium 132, potassium 3.3, chlorides 99, CO2 26, BUN 36, creatinine 0.94. Glucose is 242. Albumin is 3. Progress note dated October 19, 2024. 79-year-old male seen again in room 377. The patient is currently doing reasonably well. He still feels quite weak. He was admitted because of weakness, as he fell at home, and could not get up. Currently, he is on 3 L of oxygen. He is getting saline at 10 cc an hour. His only complaint today is urinary burning. UA will be ordered. White count 5.9, hemoglobin 16.1, hematocrit 47.7, and a normal platelet count. PT is 24.7 with an INR of 2.5. Sodium 136, potassium 3.7, chlorides 104, CO2 25, BUN 31, and creatinine 0.8. G lucose is 176. Procalcitonin level is normal at 0.16. Chest x-ray shows findings that are consistent with mild CHF. On 10/20/2024, the patient is being seen for a follow-up. The patient is currently on room air oxygen. No significant respiratory distress. Overall, he feels quite weak and is working with physical therapy. The patient has no significant cough or sputum production as he recovers from the COVID-19 infection and the patient tested positive for COVID-19 on 10/10/2024. He has history of diabetes mellitus type 2, hypertension hyperlipidemia and he has obesity with a BMI of 34. He does have some residual lower extremity edema. INR today is at 2.3 and the patient continues to be on anticoagulation warfarin. No other significant events otherwise over the past 24 hours. The patient is also suspected to have some cellulitis of the lower extremities and the patient is currently on IV cefazolin. ID is on the case. Most recent chest x-ray was from 10/19/2024 and it showed some CHF and increased pulmonary vascular markings and cardiomegaly. No airspace disease or consolidations. Echocardiogram was done on 10/16/2024 showing preserved LV function with an ejection fraction of 55 to 60%, trace pericardial effusion. Procalcitonin level was at 0.16. On 10/21/2024, patient is doing well other than some generalized weakness. He remains on room air oxygen. He is looking for being released to rehabilitation. He will need ECF. He is recovering from an acute COVID-19 related pneumonia. Oxygen is stable and the patient is on room air oxygen. He is known to have previous history of DVT and the patient remains on anticoagulation with warfarin. INR is currently at 2.5. No other significant events overnight. Sitting up in a chair. Calm and comfortable. Continues to be on IV cefazolin regarding lower extremity cellulitis which is essentially recovered. Objective - Vital Signs Vital signs: Vital Signs Temp 98 F 10/21/24 08:00 Pulse 74 10/21/24 11:46 Resp 16 10/21/24 11:46 BP 153/81 10/21/24 11:46 Pulse Ox 92 L 10/21/24 11:46 FiO2 Intake & Output 10/20/24 10/21/24 10/21/24 18:59 06:59 18:59 Intake Total 1168 222 Output Total 1800 550 Balance -632 550 222 Weight 106.5 kg 106.5 kg Intake: Oral 1168 222 Output: Urine 1800 550 Other: Voiding Method External Catheter External Catheter External Catheter # Bowel Movements 0 - Exam No acute distress, oriented 3. The patient is currently on 3 L. No respiratory distress. HEENT examination is grossly unremarkable. Mucous membranes are moist. No oral lesions. Neck supple. Full range of motion. No adenopathy thyromegaly or neck vein distention. Cardiovascular examination reveals regular rhythm rate. S1-S2 normal. No S3 or S4. No discernible murmur noted. Lungs reveal minimal basilar crackles. No wheezes. No rhonchi. Breath sounds are equal bilaterally. Saturations are reasonable. Abdomen soft bowel sounds are heard. No masses or tenderness. Extremities are intact. Mild edema. No cyanosis or clubbing. Skin is without rash or lesion. Neurologic examination is brief but nonfocal. Generalized global weakness in all 4 extremities - Labs CBC & Chem 7: 10/19/24 07:41 10/20/24 07:38 Labs: Abnormal Lab Results - Last 24 Hours (Table) 10/20/24 10/20/24 10/21/24 Range/Units 16:32 20:32 06:04 PT (10.0-12.5) sec INR (<1.2) POC Glucose (mg/dL) 238 H 199 H 126 H (70-110) mg/dL 10/21/24 10/21/24 Range/Units 07:38 11:24 PT 25.2 H (10.0-12.5) sec INR 2.5 H (<1.2) POC Glucose (mg/dL) 155 H (70-110) mg/dL Microbiology - Last 24 Hours (Table) 10/19/24 18:20 Gram Stain - Final Sputum Sputum Culture - Final Assessment and Plan Plan: Generalized weakness and falls, multifactorial, could be further exacerbated by COVID-19 infection, clinically improving. Nevertheless, continues to have profound generalized weakness the patient will benefit from rehabilitation in an [facility] COVID-19 pneumonia, originally tested COVID-positive by PCR on October 10. Patient is currently on room air oxygen. No signs of any significant respiratory insufficiency. Most recent chest x-ray from 10/19/2024 shows mild cardiomegaly. Patient has a preserved LV function. Currently on room air oxygen Bilateral lower extremity edema. Doppler of the lower extremity was negative for DVT. History of DVT, medical anticoagulation with warfarin with a therapeutic PT/INR History of hypertension. History of hyperlipidemia. Diabetes mellitus. GERD. Memory disorder. Obesity, with a BMI of 34 kg/m. Plan: Patient currently on room air oxygen Echocardiogram shows a preserved LV function Chest x-ray shows mild cardiomegaly Patient is profoundly weak and will benefit from physical therapy, awaiting ECF placement for further rehabilitation Procalcitonin level is not elevated May discontinue IV cefazolin Doppler of the lower extremity was negative for DVT.
[2024-10-22 05:51] LABS: Glucose,Whole Blood 134 mg/dL (70-110)
[2024-10-22 08:16] LABS: INR 2.7 (<1.2); Prothrombin Time 26.9 sec (10.0-12.5)
[2024-10-22 11:22] LABS: Glucose,Whole Blood 222 mg/dL (70-110)
[2024-10-22] MEDS ORDERED: BENZONATATE 100 MG CAP PO PRN (12:14)
--- NOTE | 2024-10-22 14:01 | P.PN ---
Subjective Progress Note Date: 10/22/24 Patient is a 79-year-old male with past medical history significant for hypertension, hyperlipidemia, diabetes mellitus, GERD, dementia, lower extremity DVT, among other things. Of note, patient recently had an ER visit on October 10, and was found to be positive for COVID. He was discharged home with direction to follow-up with his primary care provider Dr. Garnett. Unclear if the patient ever did follow-up with his PCP, he is a questionable historian. Has Aricept listed in his home medications. Patient did return to the emergency department last night. Apparently, he had a fall and could not get up. He has been generally weak. States his leg started shaking and gave out. Denies los ing consciousness or syncopal event. Denies head trauma. He does take warfarin on outpatient basis, however, states he has missed several doses. His INR was subtherapeutic at 1.1 on arrival. ER workup included chest x-ray which shows coarse interstitial infiltrates bilaterally and a stable cardiac silhouette. NT proBNP was low at 148. CBC: WBC count 4.7, hemoglobin 16.9, platelets 129. INR was 1.1. CMP: Sodium 135, potassium 4.4, chloride 101, serum bicarb 20, BUN 30, creatinine 0.78, glucose 126. Lactate was 2.3 and is down to 1.2. Magnesium 2. LFTs unremarkable. Troponin 0.028, 0.036, and 0.031 respectively. NT proBNP was low. Patient is currently being evaluated in the emergency department. He is lying in bed on room air. He denies shortness of breath, sputum production, chest pain, fevers or chills. He does have an intermittent nonproductive cough. Has remained afebrile. He appears generally weak. There is lower extremity edema. He is receiving Lasix 40 mg twice daily. Current vitals: Afebrile, heart rate 75 bpm, blood pressure 132/79 mmHg, nontachypneic, SpO2 is 94% on room air. Progress note dated October 17, 2024. The patient is seen today in room 377. He is eating his lunch. He is sitting up in his bed. He is on 2 L of oxygen. He is getting saline at 10 cc an hour. The patient is currently being treated for cellulitis, with cefazolin. The dawna bhatia states that he is feeling only a bit better. He came in primarily with weakness. He apparently fell at home and could not get up. The patient was initially thought to have pneumonia, but that is likely not the case. He denies any significant shortness of breath, cough, wheezing, chest tightness, or phlegm production. White count is 5.7, hemoglobin 17.2, hematocrit 49.9, platelet count 128,000. Sodium 137, potassium 3.6, chlorides 100, CO2 28, BUN 33, creatinine 1.10. Glucose is 243. Albumin is 3.6. Progress note dated October 18, 2024. 79-year-old male seen in room 377. The patient is currently on Ancef for cellulitis. The patient's procalcitonin level was normal at 0.15. The patient is getting saline at 10 cc an hour, and is on nasal O2 at 3 L. He was admitted primarily for weakness, as he apparently fell at home, and could not get up on his own. Current laboratory data includes a white count 5.3, hemoglobin 15.5, hematocrit 46.8, and a platelet count of 136,000. PT 16.4. INR 1.6. Sodium 132, potassium 3.3, chlorides 99, CO2 26, BUN 36, creatinine 0.94. Glucose is 242. Albumin is 3. Progress note dated October 19, 2024. 79-year-old male seen again in room 377. The patient is currently doing reasonably well. He still feels quite weak. He was admitted because of weakness, as he fell at home, and could not get up. Currently, he is on 3 L of oxygen. He is getting saline at 10 cc an hour. His only complaint today is urinary burning. UA will be ordered. White count 5.9, hemoglobin 16.1, hematocrit 47.7, and a normal platelet count. PT is 24.7 with an INR of 2.5. Sodium 136, potassium 3.7, chlorides 104, CO2 25, BUN 31, and creatinine 0.8. G lucose is 176. Procalcitonin level is normal at 0.16. Chest x-ray shows findings that are consistent with mild CHF. On 10/20/2024, the patient is being seen for a follow-up. The patient is currently on room air oxygen. No significant respiratory distress. Overall, he feels quite weak and is working with physical therapy. The patient has no significant cough or sputum production as he recovers from the COVID-19 infection and the patient tested positive for COVID-19 on 10/10/2024. He has history of diabetes mellitus type 2, hypertension hyperlipidemia and he has obesity with a BMI of 34. He does have some residual lower extremity edema. INR today is at 2.3 and the patient continues to be on anticoagulation warfarin. No other significant events otherwise over the past 24 hours. The patient is also suspected to have some cellulitis of the lower extremities and the patient is currently on IV cefazolin. ID is on the case. Most recent chest x-ray was from 10/19/2024 and it showed some CHF and increased pulmonary vascular markings and cardiomegaly. No airspace disease or consolidations. Echocardiogram was done on 10/16/2024 showing preserved LV function with an ejection fraction of 55 to 60%, trace pericardial effusion. Procalcitonin level was at 0.16. On 10/21/2024, patient is doing well other than some generalized weakness. He remains on room air oxygen. He is looking for being released to rehabilitation. He will need ECF. He is recovering from an acute COVID-19 related pneumonia. Oxygen is stable and the patient is on room air oxygen. He is known to have previous history of DVT and the patient remains on anticoagulation with warfarin. INR is currently at 2.5. No other significant events overnight. Sitting up in a chair. Calm and comfortable. Continues to be on IV cefazolin regarding lower extremity cellulitis which is essentially recovered. On 10/22/2024,, the patient remains clinically unchanged. Resting comfortably in a chair. Pulse ox 90% room air oxygen. Hemodynamically stable. No new labs are available from today. INR therapeutic at 2.7 as the patient is on anticoagulation with warfarin. Rest of the medication remains unchanged. Await ing discharge to ECF pending authorization. Objective - Vital Signs Vital signs: Vital Signs Temp 98.7 F 10/22/24 09:10 Pulse 82 10/22/24 09:10 Resp 16 10/22/24 09:10 BP 161/74 10/22/24 09:10 Pulse Ox 92 L 10/22/24 09:10 FiO2 Intake & Output 10/21/24 10/22/24 10/22/24 18:59 06:59 18:59 Intake Total 562 118 Output Total 1400 1100 Balance -838 -1100 118 Weight 106.5 kg 103.3 kg Intake: Oral 562 118 Output: Urine 1400 1100 Other: Voiding Method External Catheter External Catheter External Catheter - Exam No acute distress, oriented 3. The patient is currently on 3 L. No respiratory distress. HEENT examination is grossly unremarkable. Mucous membranes are moist. No oral lesions. Neck supple. Full range of motion. No adenopathy thyromegaly or neck vein distention. Cardiovascular examination reveals regular rhythm rate. S1-S2 normal. No S3 or S4. No discernible murmur noted. Lungs reveal minimal basilar crackles. No wheezes. No rhonchi. Breath sounds are equal bilaterally. Saturations are reasonable. Abdomen soft bowel sounds are heard. No masses or tenderness. Extremities are intact. Mild edema. No cyanosis or clubbing. Skin is without rash or lesion. Neurologic examination is brief but nonfocal. Generalized global weakness in all 4 extremities - Labs CBC & Chem 7: 10/19/24 07:41 10/20/24 07:38 Labs: Abnormal Lab Results - Last 24 Hours (Table) 10/21/24 10/21/24 10/22/24 Range/Units 16:31 20:53 05:50 PT (10.0-12.5) sec INR (<1.2) POC Glucose (mg/dL) 393 H 136 H 134 H (70-110) mg/dL 10/22/24 10/22/24 Range/Units 07:08 11:20 PT 26.9 H (10.0-12.5) sec INR 2.7 H (<1.2) POC Glucose (mg/dL) 222 H (70-110) mg/dL Microbiology - Last 24 Hours (Table) 10/19/24 18:20 Gram Stain - Final Sputum Sputum Culture - Final Assessment and Plan Plan: Generalized weakness and falls, multifactorial, could be further exacerbated by COVID-19 infection, clinically improving. Nevertheless, continues to have profound generalized weakness the patient will benefit from rehabilitation in an [facility] COVID-19 pneumonia, originally tested COVID-positive by PCR on October 10. Patient is currently on room air oxygen. No signs of any significant respiratory insufficiency. Most recent chest x-ray from 10/19/2024 shows mild cardiomegaly. Patient has a preserved LV function. Currently on room air oxygen Bilateral lower extremity edema. Doppler of the lower extremity was negative for DVT. History of DVT, continue anticoagulation with warfarin with a therapeutic PT/INR History of hypertension. History of hyperlipidemia. Diabetes mellitus. GERD. Memory disorder. Obesity, with a BMI of 34 kg/m. Plan: Clinically stable Patient currently on room air oxygen Echocardiogram shows a preserved LV function Chest x-ray shows mild cardiomegaly Patient is profoundly weak and will benefit from physical therapy, awaiting ECF placement for further rehabilitation, pending authorization Procalcitonin level is not elevated Doppler of the lower extremity was negative for DVT Will continue to follow
--- NOTE | 2024-10-22 14:21 | P.DS ---
Providers Date of admission: 10/20/24 11:12 Expected date of discharge: 10/22/24 Attending physician: Martinez Menon Consults: 10/15/24 20:22 Consult Physician Routine Consulting Provider: Breonna Gonzalez Consult Reason/Comments: chf Do you want consulting provider notified?: Yes Consult Physician Routine Consulting Provider: Bertrand Santacruz Consult Reason/Comments: covid,pna Do you want consulting provider notified?: Yes 10/16/24 14:08 Consult Physician Routine Consulting Provider: Edson Wren Consult Reason/Comments: Covid 19 pneumonia; Whether need to start remdesivir Do you want consulting provider notified?: Yes Primary care physician: [facility] Course: This is a pleasant 79-year-old male admitted for acute COVID-pneumonia diagnosed back on October 10, 2024. Patient does not currently wear home oxygen and currently is on 3 L of nasal cannula. He is having significant cough with sputum production and a sputum culture has been ordered and currently pending at this time. Infectious disease and pulmonary services are following closely patient continues on IV cefazolin. He was originally receiving IV Lasix which is currently held at this time as patient does not appear volume overloaded. October 20: Eating fair. Pulse ox 91% room air. Does use a walker at baseline. Still bringing up significant phlegm. Sputum cultures pending. Patient on IV cefazolin for lower extremity cellulitis. Eating well. Have the nurse with the patient up in a chair. Chest x-ray shows infiltrate versus effusion October 21: Oral intake remains good. Walked about 2 feet with a rolling walker. hand worker looking into rehab. Lower extremity cellulitis improved. Patient is off antibiotics. On room air. October 22: Comfortable. Patient been accepted to [facility]. Spoke to outreach and education social worker. Medications reviewed. Cleared by pulmonary. Patient to have INR check every week. Discussion and discharge planning more than 35 minutes On examination: VITAL SIGNS: 98.7, 82, 16, 161 x 74, 92% room air GENERAL APPEARANCE: Sitting up, comfortable HEENT: Normal external appearance of nose and ear. Oral cavity normal EYES: Pupils equal. Conjunctiva normal. NECK: JVD not raised. Mass not palpable. RESPIRATORY: Respiratory effort normal, improved air entry CARDIOVASCULAR: First and second sounds normal. No edema. ABDOMEN: Soft. Liver and spleen not palpable. No tenderness. No mass palpable. PSYCHIATRY: Alert and oriented x3. Mood and affect normal. INVESTIGATIONS, reviewed in the clinical context: October 22: INR 2.7 Accu-Cheks 222 October 20: INR 2.3 potassium 4.3 creatinine 0.75 Procalcitonin 0.16 2D echo: EF 55 to 60%. Doppler ultrasound right and left leg: Negative for DVT Assessment and Plan: - acute COVID-19 pneumonia, with some hypoxia: Improved Incentive spirometry. -Acute hypoxemic respiratory failure secondary to above: Improved Keep pulse ox above 92% Acute on chronic congestive heart failure from diastolic dysfunction EF 60 to 65%: Improved -Troponinemia due to hemodynamic instability. 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 Jardiance. Lantus. -Right lower extremity cellulitis Received IV Ancef-completed course. Being followed by ID: -Acute medical debility from above presentation. PT OT on the case. For rehab -Lactic acidosis resolved -Acute transaminitis secondary to acute COVID infection: Better -Gastroesophageal reflux disease Protonix -Hyperlipidemia Lipitor -Essential hypertension Toprol-XL. Ramipril. -Obesity, BMI 33.7 Full Code Disposition: ECF rehab at [facility] Labs: Weekly INR on Mondays CBC BMP: 5 days Plan - Discharge Summary Discharge Rx Participant: No New Discharge Prescriptions: New Acetaminophen Tab [Tylenol] 650 mg PO Q6HR PRN tab PRN Reason: Fever And/ Or Pain Continue Pantoprazole [Protonix] 40 mg PO DAILY Dutasteride/Tamsulosin HCl [Yani 0.5-0.4 mg Capsule] 1 tab PO DAILY Atorvastatin Calcium [Lipitor] 40 mg PO HS Cholecalciferol [Vitamin D3 (25 Mcg = 1000 Iu)] 50 mcg PO HS INSULIN ASPART (NovoLOG) [NovoLOG (formulary)] See Protocol SQ AC-TID Vit C/E/Zn/Coppr/Lutein/Zeaxan [Preservision Areds 2 Softgel] 1 tab PO BID Metoprolol Succinate (ER) [Toprol XL] 25 mg PO HS ramipriL 10 mg PO BID Empagliflozin [Jardiance] 25 mg PO DAILY Aspirin [Adult Low Dose Aspirin EC] 81 mg PO HS Donepezil [Aricept] 20 mg PO DAILY Warfarin [Coumadin] 5 mg PO SUMOTUWETHSA@2100 Memantine [Namenda] 10 mg PO BID Changed Insulin Glargine,Hum.rec.anlog [Lantus Solostar Pen] 26 unit SQ HS #0 Discontinued Warfarin [Coumadin] 7.5 mg PO FR@2100 No Action Ginkgo Biloba [place] Extract [Ginkgo Biloba] 60 mg PO BID Discharge Medication List Aspirin [Adult Low Dose Aspirin EC] 81 mg PO HS 06/29/23 [History] Atorvastatin Calcium [Lipitor] 40 mg PO HS 06/29/23 [History] Cholecalciferol [Vitamin D3 (25 Mcg = 1000 Iu)] 50 mcg PO HS 06/29/23 [History] Donepezil [Aricept] 20 mg PO DAILY 06/29/23 [History] Dutasteride/Tamsulosin HCl [Yani 0.5-0.4 mg Capsule] 1 tab PO DAILY 06/29/23 [History] Empagliflozin [Jardiance] 25 mg PO DAILY 06/29/23 [History] Ginkgo Biloba [place] Extract [Ginkgo Biloba] 60 mg PO BID 06/29/23 [History] INSULIN ASPART (NovoLOG) [NovoLOG (formulary)] See Protocol SQ AC-TID 06/29/23 [History] Metoprolol Succinate (ER) [Toprol XL] 25 mg PO HS 06/29/23 [History] Pantoprazole [Protonix] 40 mg PO DAILY 06/29/23 [History] Vit C/E/Zn/Coppr/Lutein/Zeaxan [Preservision Areds 2 Softgel] 1 tab PO BID 06/29/23 [History] Warfarin [Coumadin] 5 mg PO SUMOTUWETHSA@2100 06/29/23 [History] ramipriL 10 mg PO BID 06/29/23 [History] Memantine [Namenda] 10 mg PO BID 10/16/24 [History] Acetaminophen Tab [Tylenol] 650 mg PO Q6HR PRN tab 10/22/24 [Rx] Insulin Glargine,Hum.rec.anlog [Lantus Solostar Pen] 26 unit SQ HS #0 10/22/24 [Rx] Follow up Appointment(s)/Referral(s): Breonna Gonzalez MD [STAFF PHYSICIAN] - 1 Week Hung aGrnett DO [Primary Care Provider] - 1-2 days [facility] Visiting Nurse, [NON-STAFF] - Discharge/Stand Alone Forms: Who Do I Call?
[2024-10-22] MEDS ORDERED: WARFARIN 2 MG TAB PO ONE (18:00)
[2024-10-22 19:03] VITALS: BP 140/78; PULSE 77; RESP 18; TEMP 99.3
--- NOTE | 2024-10-24 12:53 | P.PN ---
Subjective Progress Note Date: 10/22/24 Principal diagnosis: Reason for follow-up is fever/COVID possible cellulitis Patient is a 79-year-old male with a past medical history significant for diabetes mellitus hypertension hyperlipidemia reflux presenting to the hospital for evaluation of weakness apparently the patient did have a fall and could not get up and apparently has been diagnosed with COVID-19 on October 10, 2024, patient did tested positive for COVID-19 did have mild hypoxemia chest x- ray was mostly CHF pattern and did have swelling to the leg and concern for cellulitis Doppler was negative. On today's evaluation that is 10/22/2024,the patient denies any fever or any chills, patient is breathing comfortably on room air, the patient denies chest pain shortness of breath still complaining of some cough but not bringing up any sputum, patient denies abdominal pain, no nausea vomiting or diarrhea. Denies pain to the lower extremity. Patient did have a INR of 2.7 no CBC was done today sputum culture negative Objective - Vital Signs Vital signs: Vital Signs Temp 98.7 F 10/22/24 09:10 Pulse 82 10/22/24 09:10 Resp 16 10/22/24 09:10 BP 161/74 10/22/24 09:10 Pulse Ox 92 L 10/22/24 09:10 FiO2 Intake & Output 10/21/24 10/22/24 10/22/24 18:59 06:59 18:59 Intake Total 562 118 Output Total 1400 1100 Balance -838 -1100 118 Weight 106.5 kg 103.3 kg Intake: Oral 562 118 Output: Urine 1400 1100 Other: Voiding Method External Catheter External Catheter External Catheter - Exam GENERAL DESCRIPTION: An elderly male lying in bed in no distress RESPIRATORY SYSTEM: Unlabored breathing , decreased breath sounds at bases HEART: S1 S2 regular rate and rhythm , ABDOMEN: Soft , no tenderness EXTREMITIES: Lower extremity swelling redness has decreased - Labs CBC & Chem 7: 10/19/24 07:41 10/20/24 07:38 Labs: Abnormal Lab Results - Last 24 Hours (Table) 10/21/24 10/21/24 10/22/24 Range/Units 16:31 20:53 05:50 PT (10.0-12.5) sec INR (<1.2) POC Glucose (mg/dL) 393 H 136 H 134 H (70-110) mg/dL 10/22/24 10/22/24 Range/Units 07:08 11:20 PT 26.9 H (10.0-12.5) sec INR 2.7 H (<1.2) POC Glucose (mg/dL) 222 H (70-110) mg/dL Microbiology - Last 24 Hours (Table) 10/19/24 18:20 Gram Stain - Final Sputum Sputum Culture - Final Assessment and Plan (1) Bilateral lower leg cellulitis Status: Acute Code(s): L03.116 - CELLULITIS OF LEFT LOWER LIMB; L03.115 - CELLULITIS OF RIGHT LOWER LIMB SNOMED Code(s): 861199241 (2) Allergy to sulfa drugs Status: Acute Code(s): Z88.2 - ALLERGY STATUS TO SULFONAMIDES SNOMED Code(s): 38911667 (3) COVID-19 Status: Acute Code(s): U07.1 - COVID-19 SNOMED Code(s): 200271340 Plan: 1patient is a hospitalized weakness and fall and this patient has been initially diagnosed with the COVID-19 on October 10 symptom has been going on for more than 7 days and would not qualify for remdesivir the patient clinical features are more of a fluid overload CHF with increasing swelling to lower ex tremity some redness as well as a chest x-ray suggestive of pulmonary vascular congestion rather than the infiltrate suggestive of COVID-19 pneumonia and the patient did have a normal procalcitonin will make secondary bacterial pneumonia to be less likely. 2patient did have diffuse swelling lower extremity Doppler has been negative for DVT legs are warm and red to touch underlying cellulitis that has been adequately treated 3-patient did have resolution of his fever repeat chest x-ray suggestive of fluid overload no consolidation, sputum culture have been negative as well and patient has received adequate antibiotic for lower extremity cellulitis and there is no need for any antibiotic on discharge Dictation was produced using [employer] dictation software. please excuse any grammatical, word or spelling errors. Time with Patient: Less than 30
== END 2024-10-22 16:45 | DRG 291 ==
LOC: EC 18:50 → 3SCARD 20:22 → OBSVTOIN 10-20 11:12
PROVIDERS: ADMIT Hospitalist; ATTEND Hospitalist
DX: I11.0 Hypertensive heart disease with heart failure (principal); I50.33 Acute on chronic diastolic (congestive) heart failure; J12.82 Pneumonia due to coronavirus disease 2019; J96.01 Acute respiratory failure with hypoxia; U07.1 COVID-19; E87.20 Acidosis, unspecified; E87.1 Hypo-osmolality and hyponatremia; L03.115 Cellulitis of right lower limb; L03.116 Cellulitis of left lower limb; D69.59 Other secondary thrombocytopenia; E86.1 Hypovolemia; E11.65 Type 2 diabetes mellitus with hyperglycemia; F03.90 Unspecified dementia, unspecified severity, without behavioral disturbance, psychotic disturbance, mood disturbance, and anxiety; Z79.4 Long term (current) use of insulin; E66.9 Obesity, unspecified; Z68.34 Body mass index [BMI] 34.0-34.9, adult; I08.3 Combined rheumatic disorders of mitral, aortic and tricuspid valves; I25.10 Atherosclerotic heart disease of native coronary artery without angina pectoris; T45.516A Underdosing of anticoagulants, initial encounter; R79.1 Abnormal coagulation profile; E78.2 Mixed hyperlipidemia; E87.6 Hypokalemia; K21.9 Gastro-esophageal reflux disease without esophagitis; R31.9 Hematuria, unspecified; R30.9 Painful micturition, unspecified; R74.01 Elevation of levels of liver transaminase levels; W01.0XXA Fall on same level from slipping, tripping and stumbling without subsequent striking against object, initial encounter; Y92.009 Unspecified place in unspecified non-institutional (private) residence as the place of occurrence of the external cause; Z87.891 Personal history of nicotine dependence; Z79.82 Long term (current) use of aspirin; Z79.84 Long term (current) use of oral hypoglycemic drugs; Z79.899 Other long term (current) drug therapy; Z79.01 Long term (current) use of anticoagulants; Z86.718 Personal history of other venous thrombosis and embolism; Z88.2 Allergy status to sulfonamides; Z91.148 Patient's other noncompliance with medication regimen for other reason
CPT/HCPCS: 36415; 71046; 80048; 80053; 81001; 83605; 83735; 83880; 84100; 84145; 84484; 85025; 85379; 85610; 85730; 86140; 87070; 87205; 93005; 93306; 93970; 96361; 96374; 96376; 99285